=== PATIENT | female | born 1955 | race Caucasian/White ===

== ENCOUNTER 2018-02-03 18:08 | Inpatient (IN) | payer MEDICARE, MEDICAID ==
[~2018-02-03] VITALS: Ht 167.6 cm; Wt 70.9 kg
[~2018-02-03 18:08] MED LIST: ALBU2.5V7 NEB; ALBU6.7H INH; ALPR1TAB7 PO; ASPI-1071 PO; CALC667C5 PO; CINA30TA2 PO; DILT180C66 PO; ESCI10TA54 PO; FOLI0.4T2 PO; FOLI1CAP8 PO; HYDR-4069 PO; LABE100T PO; LEVO75TA7 PO; ROSU10TA PO; TICA90TA PO; VALS40TA10 PO
[2018-02-03] MEDS ORDERED: methylPREDNISolone sod succ 125mg/2ml vial IV ONE (18:20)
[2018-02-03] MEDS ORDERED: ipratropium/albuterol 3ml nebule NEB ONE (18:20)
[2018-02-03 18:51] LABS: BASOPHILS % (AUTO) 0.8 % (0-1); EOSINOPHILS # (AUTO) 0.1 X10'3 (0-0.9); EOSINOPHILS % (AUTO) 2.3 % (0-6); HEMATOCRIT 32.6 % (35.0-45.0); HEMOGLOBIN 10.9 g/dl (12.0-16.0); MEAN CORPUSCULAR HEMOGLOBIN 34.5 PG (27.0-31.0); MEAN CORPUSCULAR HGB CONC 33.3 % (33.0-36.5); MEAN CORPUSCULAR VOLUME 103.4 FL (78-98); MEAN PLATELET VOLUME 9.1 FL (7.4-10.4); MONOCYTES # (AUTO) 0.8 X10'3 (0-0.9); NEUTROPHILS # (AUTO) 3.8 X10'3 (1.8-7.7); NEUTROPHILS % (AUTO) 64.9 % (42-75); PLATELET COUNT 132 X10'3 (140-440); RED BLOOD COUNT 3.15 X10'6 (4.20-5.60); WHITE BLOOD COUNT 5.8 X10'3 (4.5-11.0)
[2018-02-03 19:04] LABS: INR 1.1 INR; PARTIAL THROMBOPLASTIN TIME 33 SECONDS (22-32); PROTHROMBIN TIME 10.9 SECONDS (9.0-12.0)
[2018-02-03 19:07] LABS: ALANINE AMINOTRANSFERASE 21 U/L (12-78); ALBUMIN 3.6 G/DL (3.4-5.0); ALBUMIN/GLOBULIN RATIO 0.9 (1.1-1.5); ALKALINE PHOSPHATASE 65 IU/L (46-116); ANION GAP 12 (8-16); ASPARTATE AMINO TRANSFERASE 28 U/L (10-37); BILIRUBIN,TOTAL 0.6 MG/DL (0.1-1.0); BLOOD UREA NITROGEN 17 MG/DL (7-18); BUN/CREATININE RATIO 3.6 (6.6-38.0); CHLORIDE 93 MMOL/L (99-107); CREATININE 4.74 MG/DL (0.40-0.90); GLUCOSE 94 MG/DL (70-104); POTASSIUM 3.8 MMOL/L (3.5-5.1); SODIUM 136 MMOL/L (135-145); TOTAL PROTEIN 7.6 G/DL (6.4-8.2); eGFR 9 ML/MIN
[2018-02-03] MEDS ORDERED: LEVO250T2 PO (19:09)
[2018-02-03] MEDS ORDERED: temazepam 15mg capsule PO PRN (21:00)
[2018-02-03] MEDS ORDERED: normal saline 1000ml 1,000 ML IV SCH (22:06)
[2018-02-03] MEDS ORDERED: HYDROcodone/acetaminophen 10/325mg tab PO PRN (22:10)
[2018-02-03] MEDS ORDERED: HYDROcodone/acetaminophen 5mg/325mg tablet PO PRN (22:10)
[2018-02-03] MEDS ORDERED: acetaminophen 325mg tablet PO PRN (22:10)
[2018-02-03] MEDS ORDERED: bisacodyl 10mg suppository rectal RC PRN (22:10)
[2018-02-03] MEDS ORDERED: ondansetron/PF 4mg/2ml inj IV PRN (22:10)
[2018-02-03] MEDS ORDERED: metoclopramide 5 mg/ml inj IV PRN (22:10)
[2018-02-03] MEDS ORDERED: diphenhydrAMINE 50 mg/ml inj IV PRN (22:10)
[2018-02-03] MEDS ORDERED: mag hydrox/Alum hydrox/simeth 30ml oral suspension PO PRN (22:10)
[2018-02-03] MEDS ORDERED: diphenhydrAMINE 25mg capsule PO PRN (22:10)
[2018-02-03] MEDS ORDERED: morphine 4 MG/ML inj SYRINge IV PRN ×2 (22:10)
[2018-02-03] MEDS ORDERED: magnesium hydroxide 30ml (MOM) UD suspension PO PRN (22:10)
[2018-02-03] MEDS ORDERED: HYDROmorphone inj. 0.5 MG/0.5 ML DISP.SYRIN IV PRN ×2 (22:10)
[2018-02-03] MEDS ORDERED: acetaminophen 650mg rectal suppository RC PRN (22:10)
[2018-02-03 22:28] LABS: D-DIMER 0.63 MG/L FEU (0-0.50)
[2018-02-03 22:31] LABS: MAGNESIUM 1.9 MG/DL (1.5-2.4); PHOSPHORUS 3.8 MG/DL (2.3-4.5)
[2018-02-03 23:15] VITALS: BP 178/69
[2018-02-03] MEDS: nicotine 21mg patch - 24 hr TD SCH (23:58)
[2018-02-04] VITALS (7 sets, daily range): BP systolic 154–188; BP diastolic 63–81
[2018-02-04] MEDS ORDERED: ipratropium/albuterol 3ml nebule NEB PRN (00:15)
[2018-02-04] MEDS ORDERED: ALPRAZolam 0.5mg tablet PO PRN ×2 (00:31→21:00)
[2018-02-04] MEDS: hydrALAZINE 20mg/ml inj. IV SCH ×4 (02:23→20:43)
[2018-02-04] MEDS: docusate sod 100mg capsule PO SCH ×2 (08:00→20:00)
[2018-02-04] MEDS ORDERED: heparin, porcine 5000 units/ml vial SQ SCH (08:00)
[2018-02-04 08:19] LABS: BASOPHILS % (AUTO) 0.3 % (0-1); EOSINOPHILS % (AUTO) 0.7 % (0-6); HEMOGLOBIN 10.5 g/dl (12.0-16.0); LYMPHOCYTES # (AUTO) 0.5 X10'3 (1.1-4.8); LYMPHOCYTES % (AUTO) 13.3 % (21-51); MEAN CORPUSCULAR HEMOGLOBIN 34.4 PG (27.0-31.0); MEAN CORPUSCULAR HGB CONC 33.7 % (33.0-36.5); MEAN CORPUSCULAR VOLUME 101.9 FL (78-98); MEAN PLATELET VOLUME 9.7 FL (7.4-10.4); MONOCYTES # (AUTO) 0.1 X10'3 (0-0.9); MONOCYTES % (AUTO) 2.6 % (2-12); NEUTROPHILS # (AUTO) 3.4 X10'3 (1.8-7.7); NEUTROPHILS % (AUTO) 83.1 % (42-75); PLATELET COUNT 132 X10'3 (140-440); RED BLOOD COUNT 3.04 X10'6 (4.20-5.60); WHITE BLOOD COUNT 4.1 X10'3 (4.5-11.0)
[2018-02-04] MEDS: nicotine 21mg patch - 24 hr TD SCH (08:59)
[2018-02-04] MEDS: methylPREDNISolone sod succ 125mg/2ml vial IV SCH ×2 (09:00→20:12)
[2018-02-04] MEDS: lactobacillus rhamnosus 10,000 MMU CELLS/CAPSULE PO SCH ×2 (09:01→20:13)
[2018-02-04] MEDS: pantoprazole 40mg Tablet.DR PO SCH (09:02)
[2018-02-04 09:19] LABS: ALANINE AMINOTRANSFERASE 19 U/L (12-78); ALBUMIN 3.4 G/DL (3.4-5.0); ALBUMIN/GLOBULIN RATIO 0.9 (1.1-1.5); ALKALINE PHOSPHATASE 61 IU/L (46-116); ANION GAP 11 (8-16); ASPARTATE AMINO TRANSFERASE 23 U/L (10-37); BILIRUBIN,TOTAL 0.5 MG/DL (0.1-1.0); BLOOD UREA NITROGEN 32 MG/DL (7-18); BUN/CREATININE RATIO 5.4 (6.6-38.0); CALCIUM 9.4 MG/DL (8.5-10.1); CHLORIDE 93 MMOL/L (99-107); CREATININE 5.94 MG/DL (0.40-0.90); GLUCOSE 137 MG/DL (70-104); POTASSIUM 4.2 MMOL/L (3.5-5.1); SODIUM 134 MMOL/L (135-145); TOTAL CARBON DIOXIDE 29.6 MMOL/L (24-32); TOTAL PROTEIN 7.3 G/DL (6.4-8.2); eGFR 7 ML/MIN
[2018-02-04] MEDS ORDERED: levoFLOXACIN-Levaquin 500mg/D5 100 ML IV ONE (11:00)
[2018-02-04] MEDS: levoTHYROXINE 75mcg tablet PO SCH (11:05)
[2018-02-04] MEDS: folic acid 0.4mg tablet PO SCH (11:05)
[2018-02-04] MEDS: cinacalcet 30mg tablet PO SCH (11:05)
[2018-02-04] MEDS: citalopram 20mg tablet PO SCH (11:06)
[2018-02-04] MEDS: aspirin 81mg tablet.DR PO SCH (11:08)
[2018-02-04] MEDS ORDERED: non-formulary drug (Albuterol Sulfate (Proventil Hfa) 2 PUFFS) INH SCH (12:00)
[2018-02-04] MEDS: calcium acetate 667mg (PhosLO) capsule PO SCH ×2 (12:25→18:17)
[2018-02-04] MEDS: diltiazem CD 180mg cap (once-daily) PO SCH (13:50)
[2018-02-04] MEDS: hydrALAZINE 25 MG tablet PO SCH ×2 (15:20→23:00)
[2018-02-04] MEDS ORDERED: labetalol 5mg/ml 20ml inj. IV ONE (18:30)
[2018-02-04] MEDS: atorvastatin 20mg tablet PO SCH (20:13)
[2018-02-04] MEDS: labetalol 100mg tablet PO SCH (20:13)
[2018-02-04] MEDS: albuterol 2.5 MG/3 ML nebule NEB PRN (20:19)
[2018-02-05] VITALS (10 sets, daily range): BP systolic 137–214; BP diastolic 52–81
[2018-02-05] MEDS ORDERED: nitroGLYCERIN 1gm ointment UD TP ONE (00:15)
[2018-02-05] MEDS ORDERED: hydrALAZINE 20mg/ml inj. IV ONE (00:15)
[2018-02-05] MEDS: hydrALAZINE 20mg/ml inj. IV SCH ×4 (01:13→20:00)
[2018-02-05 05:50] LABS: BASOPHILS % (AUTO) 0 % (0-1); EOSINOPHILS % (AUTO) 0 % (0-6); HEMATOCRIT 29.1 % (35.0-45.0); HEMOGLOBIN 9.8 g/dl (12.0-16.0); LYMPHOCYTES # (AUTO) 0.8 X10'3 (1.1-4.8); LYMPHOCYTES % (AUTO) 9.4 % (21-51); MEAN CORPUSCULAR HEMOGLOBIN 34.7 PG (27.0-31.0); MEAN CORPUSCULAR HGB CONC 33.6 % (33.0-36.5); MEAN CORPUSCULAR VOLUME 103.3 FL (78-98); MEAN PLATELET VOLUME 9.8 FL (7.4-10.4); MONOCYTES # (AUTO) 0.2 X10'3 (0-0.9); MONOCYTES % (AUTO) 2.5 % (2-12); NEUTROPHILS # (AUTO) 7.6 X10'3 (1.8-7.7); NEUTROPHILS % (AUTO) 88.1 % (42-75); PLATELET COUNT 144 X10'3 (140-440); RED BLOOD COUNT 2.82 X10'6 (4.20-5.60); RED CELL DISTRIBUTION WIDTH 15.1 % (11.5-14.5); WHITE BLOOD COUNT 8.6 X10'3 (4.5-11.0)
[2018-02-05 06:11] LABS: ALANINE AMINOTRANSFERASE 17 U/L (12-78); ALBUMIN 3.3 G/DL (3.4-5.0); ALBUMIN/GLOBULIN RATIO 0.9 (1.1-1.5); ALKALINE PHOSPHATASE 62 IU/L (46-116); ANION GAP 12 (8-16); ASPARTATE AMINO TRANSFERASE 22 U/L (10-37); BILIRUBIN,TOTAL 0.4 MG/DL (0.1-1.0); BLOOD UREA NITROGEN 59 MG/DL (7-18); CALCIUM 10.2 MG/DL (8.5-10.1); CHLORIDE 94 MMOL/L (99-107); CREATININE 8.41 MG/DL (0.40-0.90); GLUCOSE 143 MG/DL (70-104); POTASSIUM 4.9 MMOL/L (3.5-5.1); SODIUM 131 MMOL/L (135-145); TOTAL CARBON DIOXIDE 25.3 MMOL/L (24-32); TOTAL PROTEIN 6.8 G/DL (6.4-8.2); eGFR 5 ML/MIN
[2018-02-05] MEDS: lactobacillus rhamnosus 10,000 MMU CELLS/CAPSULE PO SCH ×2 (07:43→20:12)
[2018-02-05] MEDS: methylPREDNISolone sod succ 125mg/2ml vial IV SCH ×2 (07:44→20:13)
[2018-02-05] MEDS: folic acid 0.4mg tablet PO SCH (07:44)
[2018-02-05] MEDS: citalopram 20mg tablet PO SCH (07:44)
[2018-02-05] MEDS: levoTHYROXINE 75mcg tablet PO SCH (07:44)
[2018-02-05] MEDS: folic acid/vitamin B complex w/vitamin C 0.8mg tablet PO SCH (07:44)
[2018-02-05] MEDS: calcium acetate 667mg (PhosLO) capsule PO SCH ×3 (07:44→15:30)
[2018-02-05] MEDS: hydrALAZINE 25 MG tablet PO SCH ×3 (07:45→23:57)
[2018-02-05] MEDS: cinacalcet 30mg tablet PO SCH (07:45)
[2018-02-05] MEDS: aspirin 81mg tablet.DR PO SCH (07:45)
[2018-02-05] MEDS: labetalol 100mg tablet PO SCH ×2 (07:45→20:13)
[2018-02-05] MEDS: pantoprazole 40mg Tablet.DR PO SCH (07:45)
[2018-02-05] MEDS: diltiazem CD 180mg cap (once-daily) PO SCH (07:45)
[2018-02-05] MEDS: nicotine 21mg patch - 24 hr TD SCH (07:46)
[2018-02-05] MEDS: docusate sod 100mg capsule PO SCH ×2 (07:56→20:11)
[2018-02-05] MEDS ORDERED: albumin (human) 25% 100ml IV 100 ML IV PRN (08:00)
[2018-02-05] MEDS ORDERED: LIDOcaine 1% (10mg/ml) 2ml vial SQ ONE (08:00)
[2018-02-05] MEDS ORDERED: heparin 1,000unit/ml 10ml vial 10 ML IV ONE (08:00)
[2018-02-05] MEDS ORDERED: epoetin 20,000 units/ml inj IV ONE (08:00)
[2018-02-05] MEDS ORDERED: heparin 1,000 units/ml 10ml inj IV ONE (08:00)
[2018-02-05] MEDS ORDERED: ALPRAZolam 0.5mg tablet PO SCH (08:00)
[2018-02-05] MEDS: atorvastatin 20mg tablet PO SCH (20:12)
[2018-02-05] MEDS: ALPRAZolam 0.5mg tablet PO PRN (20:16)
[2018-02-05] MEDS: albuterol 2.5 MG/3 ML nebule NEB PRN (21:15)
[2018-02-06] VITALS (8 sets, daily range): BP systolic 97–200; BP diastolic 56–76
[2018-02-06] MEDS: hydrALAZINE 20mg/ml inj. IV SCH ×4 (02:28→20:44)
[2018-02-06 05:18] LABS: BASOPHILS % (AUTO) 0 % (0-1); EOSINOPHILS % (AUTO) 0 % (0-6); HEMATOCRIT 31.5 % (35.0-45.0); HEMOGLOBIN 10.6 g/dl (12.0-16.0); LYMPHOCYTES # (AUTO) 0.9 X10'3 (1.1-4.8); LYMPHOCYTES % (AUTO) 5.6 % (21-51); MEAN CORPUSCULAR HEMOGLOBIN 34.7 PG (27.0-31.0); MEAN CORPUSCULAR HGB CONC 33.7 % (33.0-36.5); MEAN CORPUSCULAR VOLUME 102.8 FL (78-98); MEAN PLATELET VOLUME 9.8 FL (7.4-10.4); MONOCYTES # (AUTO) 0.3 X10'3 (0-0.9); MONOCYTES % (AUTO) 1.8 % (2-12); NEUTROPHILS # (AUTO) 15.3 X10'3 (1.8-7.7); NEUTROPHILS % (AUTO) 92.6 % (42-75); PLATELET COUNT 187 X10'3 (140-440); RED BLOOD COUNT 3.07 X10'6 (4.20-5.60); RED CELL DISTRIBUTION WIDTH 15.4 % (11.5-14.5); WHITE BLOOD COUNT 16.5 X10'3 (4.5-11.0)
[2018-02-06 05:43] LABS: ALANINE AMINOTRANSFERASE 17 U/L (12-78); ALBUMIN 3.1 G/DL (3.4-5.0); ALBUMIN/GLOBULIN RATIO 0.8 (1.1-1.5); ALKALINE PHOSPHATASE 64 IU/L (46-116); ANION GAP 7 (8-16); ASPARTATE AMINO TRANSFERASE 14 U/L (10-37); BILIRUBIN,TOTAL 0.4 MG/DL (0.1-1.0); BLOOD UREA NITROGEN 44 MG/DL (7-18); BUN/CREATININE RATIO 7.8 (6.6-38.0); CALCIUM 10.1 MG/DL (8.5-10.1); CHLORIDE 97 MMOL/L (99-107); CREATININE 5.65 MG/DL (0.40-0.90); GLUCOSE 165 MG/DL (70-104); POTASSIUM 4.5 MMOL/L (3.5-5.1); SODIUM 133 MMOL/L (135-145); TOTAL CARBON DIOXIDE 29.1 MMOL/L (24-32); TOTAL PROTEIN 6.9 G/DL (6.4-8.2); eGFR 8 ML/MIN
[2018-02-06] MEDS: methylPREDNISolone sod succ 125mg/2ml vial IV SCH (07:31)
[2018-02-06] MEDS: levoTHYROXINE 75mcg tablet PO SCH (07:32)
[2018-02-06] MEDS: lactobacillus rhamnosus 10,000 MMU CELLS/CAPSULE PO SCH ×2 (07:32→20:44)
[2018-02-06] MEDS: folic acid 0.4mg tablet PO SCH (07:32)
[2018-02-06] MEDS: hydrALAZINE 25 MG tablet PO SCH ×2 (07:32→15:23)
[2018-02-06] MEDS: folic acid/vitamin B complex w/vitamin C 0.8mg tablet PO SCH (07:32)
[2018-02-06] MEDS: calcium acetate 667mg (PhosLO) capsule PO SCH ×3 (07:32→17:41)
[2018-02-06] MEDS: pantoprazole 40mg Tablet.DR PO SCH (07:32)
[2018-02-06] MEDS: docusate sod 100mg capsule PO SCH ×2 (07:32→20:44)
[2018-02-06] MEDS: citalopram 20mg tablet PO SCH (07:32)
[2018-02-06] MEDS: aspirin 81mg tablet.DR PO SCH (07:32)
[2018-02-06] MEDS: labetalol 100mg tablet PO SCH ×2 (07:32→20:44)
[2018-02-06] MEDS: nicotine 21mg patch - 24 hr TD SCH (07:33)
[2018-02-06] MEDS: cinacalcet 30mg tablet PO SCH (07:33)
[2018-02-06] MEDS: diltiazem CD 180mg cap (once-daily) PO SCH (07:33)
[2018-02-06] MEDS: polyethylene glycol 3350 17gm powd pack PO SCH (08:00)
[2018-02-06] MEDS: guaiFENesin ER 600mg tablet PO SCH ×2 (08:55→20:44)
[2018-02-06] MEDS: ipratropium/albuterol 3ml nebule NEB SCH ×3 (10:50→19:33)
[2018-02-06] MEDS ORDERED: levoFLOXACIN 250mg tablet PO SCH (11:00)
[2018-02-06] MEDS: prednisone 10mg tablet PO SCH (12:19)
[2018-02-06] MEDS: atorvastatin 20mg tablet PO SCH (20:44)
[2018-02-06] MEDS: ALPRAZolam 0.5mg tablet PO PRN (21:18)
[2018-02-07] MEDS: hydrALAZINE 20mg/ml inj. IV SCH ×2 (00:12→08:00)
[2018-02-07 03:00] VITALS: BP 172/81
[2018-02-07 05:16] LABS: BASOPHILS % (AUTO) 0.2 % (0-1); EOSINOPHILS % (AUTO) 0 % (0-6); HEMATOCRIT 32.2 % (35.0-45.0); HEMOGLOBIN 10.7 g/dl (12.0-16.0); LYMPHOCYTES # (AUTO) 1.1 X10'3 (1.1-4.8); MEAN CORPUSCULAR HEMOGLOBIN 34.4 PG (27.0-31.0); MEAN CORPUSCULAR HGB CONC 33.2 % (33.0-36.5); MEAN CORPUSCULAR VOLUME 103.6 FL (78-98); MEAN PLATELET VOLUME 9.7 FL (7.4-10.4); MONOCYTES # (AUTO) 0.8 X10'3 (0-0.9); MONOCYTES % (AUTO) 5.5 % (2-12); NEUTROPHILS # (AUTO) 11.8 X10'3 (1.8-7.7); NEUTROPHILS % (AUTO) 86.3 % (42-75); PLATELET COUNT 178 X10'3 (140-440); RED CELL DISTRIBUTION WIDTH 15.1 % (11.5-14.5); WHITE BLOOD COUNT 13.7 X10'3 (4.5-11.0)
[2018-02-07 05:54] LABS: ALANINE AMINOTRANSFERASE 14 U/L (12-78); ALBUMIN/GLOBULIN RATIO 0.9 (1.1-1.5); ALKALINE PHOSPHATASE 69 IU/L (46-116); ANION GAP 8 (8-16); ASPARTATE AMINO TRANSFERASE 14 U/L (10-37); BILIRUBIN,TOTAL 0.6 MG/DL (0.1-1.0); BLOOD UREA NITROGEN 79 MG/DL (7-18); BUN/CREATININE RATIO 9.9 (6.6-38.0); CALCIUM 11.2 MG/DL (8.5-10.1); CHLORIDE 96 MMOL/L (99-107); CREATININE 8.01 MG/DL (0.40-0.90); GLUCOSE 149 MG/DL (70-104); POTASSIUM 4.7 MMOL/L (3.5-5.1); SODIUM 131 MMOL/L (135-145); TOTAL CARBON DIOXIDE 27.1 MMOL/L (24-32); TOTAL PROTEIN 6.4 G/DL (6.4-8.2); eGFR 5 ML/MIN
[2018-02-07 07:00] VITALS: BP 178/64
[2018-02-07] MEDS: levoTHYROXINE 75mcg tablet PO SCH (07:16)
[2018-02-07] MEDS: docusate sod 100mg capsule PO SCH (07:49)
[2018-02-07] MEDS: polyethylene glycol 3350 17gm powd pack PO SCH (07:49)
[2018-02-07] MEDS: lactobacillus rhamnosus 10,000 MMU CELLS/CAPSULE PO SCH (07:49)
[2018-02-07] MEDS: hydrALAZINE 25 MG tablet PO SCH ×2 (07:49)
[2018-02-07] MEDS: calcium acetate 667mg (PhosLO) capsule PO SCH (07:49)
[2018-02-07] MEDS: citalopram 20mg tablet PO SCH (07:49)
[2018-02-07] MEDS: nicotine 21mg patch - 24 hr TD SCH (07:49)
[2018-02-07] MEDS: guaiFENesin ER 600mg tablet PO SCH (07:50)
[2018-02-07] MEDS: folic acid 0.4mg tablet PO SCH (07:50)
[2018-02-07] MEDS: prednisone 10mg tablet PO SCH (07:50)
[2018-02-07] MEDS: aspirin 81mg tablet.DR PO SCH (07:50)
[2018-02-07] MEDS: pantoprazole 40mg Tablet.DR PO SCH (07:50)
[2018-02-07] MEDS: folic acid/vitamin B complex w/vitamin C 0.8mg tablet PO SCH (07:50)
[2018-02-07] MEDS: cinacalcet 30mg tablet PO SCH (07:50)
[2018-02-07] MEDS: labetalol 100mg tablet PO SCH (07:50)
[2018-02-07] MEDS: diltiazem CD 180mg cap (once-daily) PO SCH (07:50)
[2018-02-07] MEDS: ALPRAZolam 0.5mg tablet PO PRN (07:57)
[2018-02-07] MEDS: ipratropium/albuterol 3ml nebule NEB SCH ×2 (08:29→11:00)
[2018-02-07 11:00] VITALS: BP 188/78
== END 2018-02-07 12:20 | disposition home or self-care (01) | DRG 291 ==
LOC: ER 18:09 → ED HOLD 22:11 → PCU 3S 23:15
PROVIDERS: ADMIT Family Medicine; ATTEND Internal Medicine Critical Care Medicine
PROC: 5A1D70Z Performance of Urinary Filtration, Intermittent, Less than 6 Hours Per Day (ICD-10-PCS; principal; 2018-02-05)
DX: I13.2 Hypertensive heart and chronic kidney disease with heart failure and with stage 5 chronic kidney disease, or end stage renal disease (principal); N18.6 End stage renal disease; I50.33 Acute on chronic diastolic (congestive) heart failure; J96.01 Acute respiratory failure with hypoxia; J44.1 Chronic obstructive pulmonary disease with (acute) exacerbation; D69.6 Thrombocytopenia, unspecified; E78.00 Pure hypercholesterolemia, unspecified; D53.9 Nutritional anemia, unspecified; R91.1 Solitary pulmonary nodule; F17.210 Nicotine dependence, cigarettes, uncomplicated; Z99.2 Dependence on renal dialysis; Z99.81 Dependence on supplemental oxygen; Z79.899 Other long term (current) drug therapy; Z79.82 Long term (current) use of aspirin; Z82.49 Family history of ischemic heart disease and other diseases of the circulatory system; Z82.3 Family history of stroke; Z80.9 Family history of malignant neoplasm, unspecified; Z83.3 Family history of diabetes mellitus; Z82.5 Family history of asthma and other chronic lower respiratory diseases; Z82.41 Family history of sudden cardiac death; Z71.6 Tobacco abuse counseling
CPT/HCPCS: 36415; 71045; 71250; 80053; 83735; 83880; 84100; 84443; 84484; 85025; 85379; 85610; 85730; 87070; 93005; 94640; 94667; 94668; 94760; A6258; A6402; G0257; J0360; J0885; J1644; J1956; J2930; J3490; J7030; J7512

== ENCOUNTER 2018-02-16 17:57 | Inpatient (IN) | payer MEDICARE, MEDICAID ==
[~2018-02-16] VITALS: Ht 170.2 cm; Wt 71.6 kg
[~2018-02-16 17:57] MED LIST changes: -LABE100T PO; +LABE100T5 PO; +LEVO250T2 PO; -TICA90TA PO; -VALS40TA10 PO
[2018-02-16] MEDS ORDERED: normal saline 1000ML IV soln IVB ONE (18:20)
[2018-02-16 18:43] LABS: BASOPHILS # (AUTO) 0.1 X10'3 (0-0.2); BASOPHILS % (AUTO) 0.5 % (0-1); EOSINOPHILS # (AUTO) 0.4 X10'3 (0-0.9); EOSINOPHILS % (AUTO) 3.7 % (0-6); HEMATOCRIT 27.4 % (35.0-45.0); HEMOGLOBIN 9.3 g/dl (12.0-16.0); LYMPHOCYTES # (AUTO) 0.8 X10'3 (1.1-4.8); MEAN CORPUSCULAR HEMOGLOBIN 35.3 PG (27.0-31.0); MEAN CORPUSCULAR HGB CONC 33.8 % (33.0-36.5); MEAN CORPUSCULAR VOLUME 104.4 FL (78-98); MONOCYTES # (AUTO) 0.7 X10'3 (0-0.9); MONOCYTES % (AUTO) 5.8 % (2-12); NEUTROPHILS # (AUTO) 9.9 X10'3 (1.8-7.7); PLATELET COUNT 184 X10'3 (140-440); RED BLOOD COUNT 2.62 X10'6 (4.20-5.60); RED CELL DISTRIBUTION WIDTH 15.5 % (11.5-14.5); WHITE BLOOD COUNT 11.9 X10'3 (4.5-11.0)
[2018-02-16 18:58] LABS: ALANINE AMINOTRANSFERASE 18 U/L (12-78); ALBUMIN 2.4 G/DL (3.4-5.0); ALBUMIN/GLOBULIN RATIO 0.5 (1.1-1.5); ALKALINE PHOSPHATASE 84 IU/L (46-116); ANION GAP 10 (8-16); ASPARTATE AMINO TRANSFERASE 21 U/L (10-37); BILIRUBIN,TOTAL 0.7 MG/DL (0.1-1.0); BLOOD UREA NITROGEN 39 MG/DL (7-18); BUN/CREATININE RATIO 5.8 (6.6-38.0); CALCIUM 10.7 MG/DL (8.5-10.1); CHLORIDE 90 MMOL/L (99-107); GLUCOSE 90 MG/DL (70-104); POTASSIUM 3.3 MMOL/L (3.5-5.1); SODIUM 133 MMOL/L (135-145); TOTAL CARBON DIOXIDE 33.1 MMOL/L (24-32); TOTAL PROTEIN 7.3 G/DL (6.4-8.2); eGFR 6 ML/MIN
[2018-02-16 19:07] LABS: LIPASE 80 U/L (73-393)
[2018-02-16 19:14] LABS: CLARITY,URINE CLEAR (Clear); COLOR,URINE YELLOW (Yellow); GLUCOSE, URINE 250 mg/dl (Neg); KETONES,URINE NEGATIVE (Neg); LEUKOCYTE ESTERASE ,URINE NEGATIVE (Neg); NITRITES, URINE NEGATIVE (Neg); OCCULT BLOOD,URINE NEGATIVE (Neg); PH,URINE 8.5 (4.8-8.0); PROTEIN,URINE >=300 mg/dl (Neg); UROBILINOGEN,URINE 0.2 E.U/dL (0.2-1.0)
[2018-02-16 19:24] LABS: UA COLLECTION TYPE STRAIGHT CATH
[2018-02-16 19:26] LABS: BACTERIA,URINE 1+ /HPF (Neg); RBC,URINE 0-2 /HPF (0-2); SQUAMOUS EPITHELIAL CELL,UR FEW /LPF (FEW)
[2018-02-16] MEDS ORDERED: piperacillin-tazo 2.25gm/50ml 50 ML IV STA (19:50)
[2018-02-16] MEDS ORDERED: vancomycin/NS 1 GM ADD-VANTAGE 250 ML IV ONE (19:50)
[2018-02-16] MEDS ORDERED: ROSU10TA PO (20:06)
[2018-02-16] MEDS ORDERED: FOLI1CAP8 (20:06)
[2018-02-16] MEDS ORDERED: FOLI1TAB16 PO (20:06)
[2018-02-16] MEDS ORDERED: HYDR-4069 PO (20:06)
[2018-02-16] MEDS ORDERED: acetaminophen 650mg rectal suppository RC PRN (20:50)
[2018-02-16] MEDS ORDERED: ipratropium/albuterol 3ml nebule NEB PRN (20:50)
[2018-02-16] MEDS ORDERED: ondansetron/PF 4mg/2ml inj IV PRN (20:50)
[2018-02-16 21:30] VITALS: BP 141/65
[2018-02-16] MEDS ORDERED: vancomycin/NS 1 GM ADD-VANTAGE 250 ML IV PRN (21:45)
[2018-02-16 22:00] VITALS: BP 115/49
[2018-02-16] MEDS: methylPREDNISolone sod succ/PF 40mg inj. IV SCH (22:23)
[2018-02-16] MEDS: ipratropium/albuterol 3ml nebule NEB SCH (23:50)
[2018-02-16] MEDS: piperacillin-tazo 2.25gm/50ml 50 ML IV SCH (23:55)
[2018-02-16] MEDS: hydrALAZINE 25 MG tablet PO SCH (23:55)
[2018-02-17] MEDS: VANCOMYCIN LEVEL IV SCH (00:13)
[2018-02-17 02:00] VITALS: BP 146/61
[2018-02-17 04:50] LABS: BASOPHILS % (AUTO) 0 % (0-1); EOSINOPHILS # (AUTO) 0.2 X10'3 (0-0.9); EOSINOPHILS % (AUTO) 2.4 % (0-6); HEMATOCRIT 25.9 % (35.0-45.0); HEMOGLOBIN 8.4 g/dl (12.0-16.0); LYMPHOCYTES # (AUTO) 0.3 X10'3 (1.1-4.8); LYMPHOCYTES % (AUTO) 2.8 % (21-51); MEAN CORPUSCULAR HEMOGLOBIN 33.9 PG (27.0-31.0); MEAN CORPUSCULAR HGB CONC 32.6 % (33.0-36.5); MEAN CORPUSCULAR VOLUME 104.1 FL (78-98); MEAN PLATELET VOLUME 9.4 FL (7.4-10.4); MONOCYTES # (AUTO) 0.2 X10'3 (0-0.9); MONOCYTES % (AUTO) 1.9 % (2-12); NEUTROPHILS # (AUTO) 9.4 X10'3 (1.8-7.7); NEUTROPHILS % (AUTO) 92.9 % (42-75); PLATELET COUNT 156 X10'3 (140-440); RED BLOOD COUNT 2.48 X10'6 (4.20-5.60); RED CELL DISTRIBUTION WIDTH 15.4 % (11.5-14.5); WHITE BLOOD COUNT 10.2 X10'3 (4.5-11.0)
[2018-02-17 04:57] LABS: PARTIAL THROMBOPLASTIN TIME 37 SECONDS (22-32); PROTHROMBIN TIME 10.7 SECONDS (9.0-12.0)
[2018-02-17 05:06] LABS: ALANINE AMINOTRANSFERASE 13 U/L (12-78); ALBUMIN 2.1 G/DL (3.4-5.0); ALBUMIN/GLOBULIN RATIO 0.5 (1.1-1.5); ALKALINE PHOSPHATASE 71 IU/L (46-116); ANION GAP 12 (8-16); ASPARTATE AMINO TRANSFERASE 14 U/L (10-37); BILIRUBIN,TOTAL 0.6 MG/DL (0.1-1.0); BLOOD UREA NITROGEN 44 MG/DL (7-18); BUN/CREATININE RATIO 6.1 (6.6-38.0); CALCIUM 10.3 MG/DL (8.5-10.1); CHLORIDE 94 MMOL/L (99-107); CREATININE 7.25 MG/DL (0.40-0.90); GLUCOSE 127 MG/DL (70-104); MAGNESIUM 1.9 MG/DL (1.5-2.4); PHOSPHORUS 5.4 MG/DL (2.3-4.5); POTASSIUM 4.5 MMOL/L (3.5-5.1); SODIUM 135 MMOL/L (135-145); TOTAL CARBON DIOXIDE 29.3 MMOL/L (24-32); TOTAL PROTEIN 6.5 G/DL (6.4-8.2); VANCOMYCIN,TROUGH 18.4 UG/ML (6.0-14.0); eGFR 6 ML/MIN
[2018-02-17 06:00] VITALS: BP 128/58
[2018-02-17] MEDS: ipratropium/albuterol 3ml nebule NEB SCH ×5 (06:54→23:00)
[2018-02-17] MEDS: piperacillin-tazo 2.25gm/50ml 50 ML IV SCH ×3 (07:54→23:51)
[2018-02-17] MEDS: heparin, porcine 5000 units/ml vial SQ SCH ×2 (07:54→19:40)
[2018-02-17] MEDS: folic acid 1mg tablet PO SCH (07:55)
[2018-02-17] MEDS: methylPREDNISolone sod succ/PF 40mg inj. IV SCH ×2 (07:55→19:40)
[2018-02-17] MEDS: atorvastatin 20mg tablet PO SCH (07:55)
[2018-02-17] MEDS: levoTHYROXINE 75mcg tablet PO SCH (07:56)
[2018-02-17] MEDS: hydrALAZINE 25 MG tablet PO SCH ×3 (07:57→23:50)
[2018-02-17] MEDS: citalopram 20mg tablet PO SCH (07:57)
[2018-02-17] MEDS: ALPRAZolam 0.5mg tablet PO SCH (07:57)
[2018-02-17] MEDS: labetalol 100mg tablet PO SCH ×2 (07:58→19:41)
[2018-02-17] MEDS: cinacalcet 30mg tablet PO SCH (07:58)
[2018-02-17] MEDS: diltiazem CD 180mg cap (once-daily) PO SCH (07:58)
[2018-02-17] MEDS: calcium acetate 667mg (PhosLO) capsule PO SCH ×3 (07:58→17:32)
[2018-02-17] MEDS: docusate sod 100mg capsule PO SCH ×2 (07:59→19:40)
[2018-02-17] MEDS ORDERED: aspirin 325mg tablet, delayed-release (Ecotrin) PO SCH (08:00)
[2018-02-17] MEDS: vitamin B comp w/Vit. C tab 1 TAB TABLET PO SCH (08:00)
[2018-02-17] MEDS ORDERED: folic acid 0.4mg tablet PO SCH (08:00)
[2018-02-17] MEDS ORDERED: LIDOcaine 1% (10mg/ml) 2ml vial SQ ONE (09:45)
[2018-02-17] MEDS ORDERED: heparin 1,000 units/ml 10ml inj IV ONE (09:45)
[2018-02-17 11:00] VITALS: BP 121/78
[2018-02-17 18:00] VITALS: BP 125/72
[2018-02-17] MEDS: lactobacillus rhamnosus 10,000 MMU CELLS/CAPSULE PO SCH (19:41)
[2018-02-17 22:00] VITALS: BP 153/58
[2018-02-18] MEDS: VANCOMYCIN LEVEL IV SCH (01:20)
[2018-02-18 02:00] VITALS: BP 132/60
[2018-02-18 05:18] LABS: BASOPHILS % (AUTO) 0.2 % (0-1); EOSINOPHILS # (AUTO) 0.1 X10'3 (0-0.9); EOSINOPHILS % (AUTO) 1.5 % (0-6); HEMATOCRIT 23.5 % (35.0-45.0); HEMOGLOBIN 8.1 g/dl (12.0-16.0); LYMPHOCYTES # (AUTO) 0.5 X10'3 (1.1-4.8); LYMPHOCYTES % (AUTO) 5.2 % (21-51); MEAN CORPUSCULAR HEMOGLOBIN 35.7 PG (27.0-31.0); MEAN CORPUSCULAR HGB CONC 34.3 % (33.0-36.5); MEAN PLATELET VOLUME 9.8 FL (7.4-10.4); MONOCYTES # (AUTO) 0.3 X10'3 (0-0.9); MONOCYTES % (AUTO) 3.1 % (2-12); NEUTROPHILS # (AUTO) 8.7 X10'3 (1.8-7.7); PLATELET COUNT 206 X10'3 (140-440); RED BLOOD COUNT 2.26 X10'6 (4.20-5.60); RED CELL DISTRIBUTION WIDTH 15.2 % (11.5-14.5); WHITE BLOOD COUNT 9.6 X10'3 (4.5-11.0)
[2018-02-18 05:44] LABS: ANISOCYTOSIS 1+; HYPOCHROMASIA 1+; PLATELET ESTIMATE NORMAL; POLYCHROMASIA 1+
[2018-02-18 06:00] VITALS: BP 148/58
[2018-02-18] MEDS: lactobacillus rhamnosus 10,000 MMU CELLS/CAPSULE PO SCH ×2 (07:54→21:42)
[2018-02-18] MEDS: cinacalcet 30mg tablet PO SCH (07:54)
[2018-02-18] MEDS: hydrALAZINE 25 MG tablet PO SCH ×2 (07:54→16:08)
[2018-02-18] MEDS: docusate sod 100mg capsule PO SCH ×2 (07:54→21:42)
[2018-02-18] MEDS: diltiazem CD 180mg cap (once-daily) PO SCH (07:54)
[2018-02-18] MEDS: vitamin B comp w/Vit. C tab 1 TAB TABLET PO SCH (07:56)
[2018-02-18] MEDS: folic acid 1mg tablet PO SCH (07:56)
[2018-02-18] MEDS: atorvastatin 20mg tablet PO SCH (07:56)
[2018-02-18] MEDS: calcium acetate 667mg (PhosLO) capsule PO SCH ×3 (07:56→17:34)
[2018-02-18] MEDS: aspirin 81mg tablet.DR PO SCH (07:56)
[2018-02-18] MEDS: citalopram 20mg tablet PO SCH (07:56)
[2018-02-18] MEDS: levoTHYROXINE 75mcg tablet PO SCH (07:56)
[2018-02-18] MEDS: ALPRAZolam 0.5mg tablet PO SCH (07:56)
[2018-02-18] MEDS: labetalol 100mg tablet PO SCH ×2 (07:57→21:43)
[2018-02-18] MEDS: heparin, porcine 5000 units/ml vial SQ SCH ×2 (07:59→21:44)
[2018-02-18] MEDS: methylPREDNISolone sod succ/PF 40mg inj. IV SCH ×2 (07:59→21:42)
[2018-02-18] MEDS: ipratropium/albuterol 3ml nebule NEB SCH ×5 (08:05→23:18)
[2018-02-18 08:33] LABS: ALANINE AMINOTRANSFERASE 12 U/L (12-78); ALBUMIN 2.2 G/DL (3.4-5.0); ALBUMIN/GLOBULIN RATIO 0.5 (1.1-1.5); ALKALINE PHOSPHATASE 76 IU/L (46-116); ANION GAP 10 (8-16); ASPARTATE AMINO TRANSFERASE 12 U/L (10-37); BILIRUBIN,TOTAL 0.4 MG/DL (0.1-1.0); BLOOD UREA NITROGEN 52 MG/DL (7-18); BUN/CREATININE RATIO 11.5 (6.6-38.0); CALCIUM 11.3 MG/DL (8.5-10.1); CHLORIDE 97 MMOL/L (99-107); CREATININE 4.53 MG/DL (0.40-0.90); GLUCOSE 177 MG/DL (70-104); PHOSPHORUS 3.7 MG/DL (2.3-4.5); POTASSIUM 4.4 MMOL/L (3.5-5.1); SODIUM 137 MMOL/L (135-145); TOTAL CARBON DIOXIDE 30.3 MMOL/L (24-32); TOTAL PROTEIN 6.7 G/DL (6.4-8.2); VANCOMYCIN,RANDOM 10.7 UG/ML; eGFR 10 ML/MIN
[2018-02-18] MEDS: piperacillin-tazo 2.25gm/50ml 50 ML IV SCH ×2 (08:51→16:08)
[2018-02-18] MEDS ORDERED: vancomycin/NS 1 GM ADD-VANTAGE 250 ML IV ONE (09:45)
[2018-02-18 11:00] VITALS: BP 138/60
[2018-02-18 15:00] VITALS: BP 150/72
[2018-02-18] MEDS ORDERED: normal saline 1000ml 250 ML IV SCH (16:40)
[2018-02-18 19:00] VITALS: BP 122/65
[2018-02-18 23:00] VITALS: BP 146/86
[2018-02-19] MEDS: hydrALAZINE 25 MG tablet PO SCH ×4 (00:26→23:41)
[2018-02-19] MEDS: piperacillin-tazo 2.25gm/50ml 50 ML IV SCH ×4 (00:26→23:42)
[2018-02-19 03:00] VITALS: BP 185/72
[2018-02-19] MEDS: VANCOMYCIN LEVEL IV SCH (03:00)
[2018-02-19] MEDS: acetaminophen 325mg tablet PO PRN (03:19)
[2018-02-19] MEDS: hydrALAZINE 20mg/ml inj. IV PRN (04:53)
[2018-02-19 05:10] LABS: BASOPHILS % (AUTO) 0 % (0-1); EOSINOPHILS # (AUTO) 0.3 X10'3 (0-0.9); EOSINOPHILS % (AUTO) 2.1 % (0-6); HEMATOCRIT 23.3 % (35.0-45.0); LYMPHOCYTES # (AUTO) 0.6 X10'3 (1.1-4.8); LYMPHOCYTES % (AUTO) 4.7 % (21-51); MEAN CORPUSCULAR HEMOGLOBIN 35.6 PG (27.0-31.0); MEAN CORPUSCULAR HGB CONC 34.3 % (33.0-36.5); MEAN CORPUSCULAR VOLUME 103.8 FL (78-98); MONOCYTES # (AUTO) 0.4 X10'3 (0-0.9); MONOCYTES % (AUTO) 3.3 % (2-12); NEUTROPHILS # (AUTO) 11.2 X10'3 (1.8-7.7); NEUTROPHILS % (AUTO) 89.9 % (42-75); PLATELET COUNT 191 X10'3 (140-440); RED BLOOD COUNT 2.25 X10'6 (4.20-5.60); RED CELL DISTRIBUTION WIDTH 15.1 % (11.5-14.5); WHITE BLOOD COUNT 12.4 X10'3 (4.5-11.0)
[2018-02-19 05:53] LABS: ALANINE AMINOTRANSFERASE 13 U/L (12-78); ALBUMIN 2.2 G/DL (3.4-5.0); ALBUMIN/GLOBULIN RATIO 0.5 (1.1-1.5); ALKALINE PHOSPHATASE 85 IU/L (46-116); ANION GAP 12 (8-16); ASPARTATE AMINO TRANSFERASE 9 U/L (10-37); BILIRUBIN,TOTAL 0.5 MG/DL (0.1-1.0); BLOOD UREA NITROGEN 87 MG/DL (7-18); BUN/CREATININE RATIO 13.8 (6.6-38.0); CHLORIDE 92 MMOL/L (99-107); CREATININE 6.29 MG/DL (0.40-0.90); GLUCOSE 176 MG/DL (70-104); MAGNESIUM 2.1 MG/DL (1.5-2.4); PHOSPHORUS 4.7 MG/DL (2.3-4.5); SODIUM 136 MMOL/L (135-145); TOTAL CARBON DIOXIDE 31.7 MMOL/L (24-32); TOTAL PROTEIN 6.4 G/DL (6.4-8.2); VANCOMYCIN,RANDOM 24.1 UG/ML; eGFR 7 ML/MIN
[2018-02-19 05:56] LABS: CALCIUM 12.3 MG/DL (8.5-10.1)
[2018-02-19 06:00] VITALS: BP 172/73
[2018-02-19] MEDS: ipratropium/albuterol 3ml nebule NEB SCH ×5 (07:00→23:00)
[2018-02-19] MEDS: levoTHYROXINE 75mcg tablet PO SCH (07:21)
[2018-02-19] MEDS: lactobacillus rhamnosus 10,000 MMU CELLS/CAPSULE PO SCH ×2 (07:21→19:24)
[2018-02-19] MEDS: atorvastatin 20mg tablet PO SCH (07:21)
[2018-02-19] MEDS: cinacalcet 30mg tablet PO SCH (07:21)
[2018-02-19] MEDS: vitamin B comp w/Vit. C tab 1 TAB TABLET PO SCH (07:21)
[2018-02-19] MEDS: calcium acetate 667mg (PhosLO) capsule PO SCH (07:21)
[2018-02-19] MEDS: folic acid 1mg tablet PO SCH (07:21)
[2018-02-19] MEDS: ALPRAZolam 0.5mg tablet PO SCH (07:21)
[2018-02-19] MEDS: labetalol 100mg tablet PO SCH ×2 (07:22→19:24)
[2018-02-19] MEDS: citalopram 20mg tablet PO SCH (07:22)
[2018-02-19] MEDS: docusate sod 100mg capsule PO SCH ×2 (07:22→19:24)
[2018-02-19] MEDS: diltiazem CD 180mg cap (once-daily) PO SCH (07:22)
[2018-02-19] MEDS: aspirin 81mg tablet.DR PO SCH (07:22)
[2018-02-19] MEDS: methylPREDNISolone sod succ/PF 40mg inj. IV SCH ×2 (07:26→19:25)
[2018-02-19] MEDS: heparin, porcine 5000 units/ml vial SQ SCH ×2 (07:27→19:24)
[2018-02-19] MEDS ORDERED: LIDOcaine 1% (10mg/ml) 2ml vial SQ ONE (08:00)
[2018-02-19] MEDS ORDERED: heparin 1,000 units/ml 10ml inj IV ONE (08:00)
[2018-02-19] MEDS ORDERED: epoetin 20,000 units/ml inj IV ONE (08:00)
[2018-02-19 11:00] VITALS: BP 127/68
[2018-02-19 15:00] VITALS: BP 129/55
[2018-02-19 19:00] VITALS: BP 146/66
[2018-02-19 23:00] VITALS: BP 183/63
[2018-02-20 03:00] VITALS: BP 140/55
[2018-02-20] MEDS: VANCOMYCIN LEVEL IV SCH (03:00)
[2018-02-20 05:12] LABS: BASOPHILS % (AUTO) 0.2 % (0-1); EOSINOPHILS # (AUTO) 0.1 X10'3 (0-0.9); EOSINOPHILS % (AUTO) 1.5 % (0-6); HEMATOCRIT 23.9 % (35.0-45.0); HEMOGLOBIN 7.8 g/dl (12.0-16.0); LYMPHOCYTES # (AUTO) 0.8 X10'3 (1.1-4.8); LYMPHOCYTES % (AUTO) 9.4 % (21-51); MEAN CORPUSCULAR HEMOGLOBIN 34.2 PG (27.0-31.0); MEAN CORPUSCULAR HGB CONC 32.5 % (33.0-36.5); MEAN CORPUSCULAR VOLUME 105.5 FL (78-98); MONOCYTES # (AUTO) 0.6 X10'3 (0-0.9); MONOCYTES % (AUTO) 6.8 % (2-12); NEUTROPHILS # (AUTO) 7.1 X10'3 (1.8-7.7); NEUTROPHILS % (AUTO) 82.1 % (42-75); PLATELET COUNT 176 X10'3 (140-440); RED BLOOD COUNT 2.26 X10'6 (4.20-5.60); RED CELL DISTRIBUTION WIDTH 15.3 % (11.5-14.5); WHITE BLOOD COUNT 8.7 X10'3 (4.5-11.0)
[2018-02-20 05:55] LABS: ALANINE AMINOTRANSFERASE 19 U/L (12-78); ALBUMIN 2.2 G/DL (3.4-5.0); ALBUMIN/GLOBULIN RATIO 0.6 (1.1-1.5); ALKALINE PHOSPHATASE 76 IU/L (46-116); ANION GAP 7 (8-16); ASPARTATE AMINO TRANSFERASE 13 U/L (10-37); BILIRUBIN,TOTAL 0.4 MG/DL (0.1-1.0); BLOOD UREA NITROGEN 46 MG/DL (7-18); BUN/CREATININE RATIO 11.6 (6.6-38.0); CALCIUM 10.2 MG/DL (8.5-10.1); CHLORIDE 100 MMOL/L (99-107); CREATININE 3.96 MG/DL (0.40-0.90); GLUCOSE 151 MG/DL (70-104); MAGNESIUM 1.8 MG/DL (1.5-2.4); PHOSPHORUS 4.5 MG/DL (2.3-4.5); POTASSIUM 4.1 MMOL/L (3.5-5.1); SODIUM 140 MMOL/L (135-145); TOTAL CARBON DIOXIDE 32.9 MMOL/L (24-32); VANCOMYCIN,RANDOM 13.4 UG/ML; eGFR 12 ML/MIN
[2018-02-20 06:00] VITALS: BP 182/68
[2018-02-20] MEDS: methylPREDNISolone sod succ/PF 40mg inj. IV SCH ×2 (07:35→20:26)
[2018-02-20] MEDS: labetalol 100mg tablet PO SCH ×2 (07:35→20:26)
[2018-02-20] MEDS: atorvastatin 20mg tablet PO SCH (07:35)
[2018-02-20] MEDS: heparin, porcine 5000 units/ml vial SQ SCH ×2 (07:35→20:26)
[2018-02-20] MEDS: citalopram 20mg tablet PO SCH (07:36)
[2018-02-20] MEDS: lactobacillus rhamnosus 10,000 MMU CELLS/CAPSULE PO SCH ×2 (07:36→20:27)
[2018-02-20] MEDS: hydrALAZINE 25 MG tablet PO SCH ×3 (07:36→23:04)
[2018-02-20] MEDS: ALPRAZolam 0.5mg tablet PO SCH (07:36)
[2018-02-20] MEDS: cinacalcet 30mg tablet PO SCH (07:36)
[2018-02-20] MEDS: diltiazem CD 180mg cap (once-daily) PO SCH (07:36)
[2018-02-20] MEDS: aspirin 81mg tablet.DR PO SCH (07:36)
[2018-02-20] MEDS: folic acid 1mg tablet PO SCH (07:36)
[2018-02-20] MEDS: vitamin B comp w/Vit. C tab 1 TAB TABLET PO SCH (07:36)
[2018-02-20] MEDS: piperacillin-tazo 2.25gm/50ml 50 ML IV SCH ×3 (07:37→23:03)
[2018-02-20] MEDS: levoTHYROXINE 75mcg tablet PO SCH (07:37)
[2018-02-20] MEDS: docusate sod 100mg capsule PO SCH ×2 (07:37→20:26)
[2018-02-20] MEDS: ipratropium/albuterol 3ml nebule NEB SCH ×4 (08:23→19:58)
[2018-02-20] MEDS ORDERED: vancomycin/NS 1 GM ADD-VANTAGE 250 ML IV ONE (09:45)
[2018-02-20 11:00] VITALS: BP 140/47
[2018-02-20 15:00] VITALS: BP 146/67
[2018-02-20] MEDS: pantoprazole 40mg Tablet.DR PO SCH (18:22)
[2018-02-20] MEDS: hydrALAZINE 20mg/ml inj. IV PRN (18:24)
[2018-02-20 19:00] VITALS: BP 196/82
[2018-02-20] MEDS: guaiFENesin ER 600mg tablet PO PRN (20:27)
[2018-02-20 23:00] VITALS: BP 187/55
[2018-02-21] VITALS (7 sets, daily range): BP systolic 157–194; BP diastolic 57–77
[2018-02-21] MEDS: VANCOMYCIN LEVEL IV SCH (03:00)
[2018-02-21 05:19] LABS: BASOPHILS % (AUTO) 0.1 % (0-1); EOSINOPHILS # (AUTO) 0.1 X10'3 (0-0.9); EOSINOPHILS % (AUTO) 1.6 % (0-6); HEMATOCRIT 23.6 % (35.0-45.0); HEMOGLOBIN 7.8 g/dl (12.0-16.0); LYMPHOCYTES # (AUTO) 0.8 X10'3 (1.1-4.8); LYMPHOCYTES % (AUTO) 8.7 % (21-51); MEAN CORPUSCULAR HEMOGLOBIN 34.4 PG (27.0-31.0); MEAN CORPUSCULAR HGB CONC 33.2 % (33.0-36.5); MEAN CORPUSCULAR VOLUME 103.8 FL (78-98); MEAN PLATELET VOLUME 9.3 FL (7.4-10.4); MONOCYTES # (AUTO) 0.2 X10'3 (0-0.9); MONOCYTES % (AUTO) 2.7 % (2-12); NEUTROPHILS # (AUTO) 7.6 X10'3 (1.8-7.7); NEUTROPHILS % (AUTO) 86.9 % (42-75); PLATELET COUNT 176 X10'3 (140-440); RED BLOOD COUNT 2.27 X10'6 (4.20-5.60); RED CELL DISTRIBUTION WIDTH 15.4 % (11.5-14.5); WHITE BLOOD COUNT 8.8 X10'3 (4.5-11.0)
[2018-02-21 05:53] LABS: ALBUMIN 2.3 G/DL (3.4-5.0); ALBUMIN/GLOBULIN RATIO 0.6 (1.1-1.5); ALKALINE PHOSPHATASE 74 IU/L (46-116); ANION GAP 12 (8-16); ASPARTATE AMINO TRANSFERASE 11 U/L (10-37); BILIRUBIN,TOTAL 0.5 MG/DL (0.1-1.0); BLOOD UREA NITROGEN 74 MG/DL (7-18); BUN/CREATININE RATIO 12.2 (6.6-38.0); CALCIUM 10.3 MG/DL (8.5-10.1); CHLORIDE 96 MMOL/L (99-107); CREATININE 6.05 MG/DL (0.40-0.90); GLUCOSE 185 MG/DL (70-104); MAGNESIUM 1.8 MG/DL (1.5-2.4); PHOSPHORUS 6.2 MG/DL (2.3-4.5); POTASSIUM 4.5 MMOL/L (3.5-5.1); SODIUM 136 MMOL/L (135-145); TOTAL CARBON DIOXIDE 27.6 MMOL/L (24-32); VANCOMYCIN,RANDOM 30.9 UG/ML; eGFR 7 ML/MIN
[2018-02-21 06:03] LABS: ALANINE AMINOTRANSFERASE 17 U/L (12-78)
[2018-02-21] MEDS: ipratropium/albuterol 3ml nebule NEB SCH ×5 (06:59→23:00)
[2018-02-21] MEDS: vitamin B comp w/Vit. C tab 1 TAB TABLET PO SCH (07:52)
[2018-02-21] MEDS: pantoprazole 40mg Tablet.DR PO SCH (07:52)
[2018-02-21] MEDS: lactobacillus rhamnosus 10,000 MMU CELLS/CAPSULE PO SCH ×2 (07:52→19:02)
[2018-02-21] MEDS: hydrALAZINE 25 MG tablet PO SCH ×3 (07:52→23:19)
[2018-02-21] MEDS: labetalol 100mg tablet PO SCH ×2 (07:52→19:03)
[2018-02-21] MEDS: citalopram 20mg tablet PO SCH (07:52)
[2018-02-21] MEDS: levoTHYROXINE 75mcg tablet PO SCH (07:52)
[2018-02-21] MEDS: cinacalcet 30mg tablet PO SCH (07:52)
[2018-02-21] MEDS: folic acid 1mg tablet PO SCH (07:53)
[2018-02-21] MEDS: atorvastatin 20mg tablet PO SCH (07:53)
[2018-02-21] MEDS: piperacillin-tazo 2.25gm/50ml 50 ML IV SCH ×3 (07:53→23:19)
[2018-02-21] MEDS: ALPRAZolam 0.5mg tablet PO SCH (07:53)
[2018-02-21] MEDS: aspirin 81mg tablet.DR PO SCH (07:53)
[2018-02-21] MEDS: docusate sod 100mg capsule PO SCH ×2 (07:54→19:03)
[2018-02-21] MEDS: heparin, porcine 5000 units/ml vial SQ SCH ×2 (07:54→19:02)
[2018-02-21] MEDS: methylPREDNISolone sod succ/PF 40mg inj. IV SCH ×2 (07:54→18:59)
[2018-02-21] MEDS: diltiazem CD 180mg cap (once-daily) PO SCH (07:56)
[2018-02-21 11:27] LABS: VITAMIN D, 25-HYDROXY 10.2 ng/mL (30.0-100.0)
[2018-02-21] MEDS: guaiFENesin ER 600mg tablet PO PRN (19:03)
[2018-02-21] MEDS: acetaminophen 325mg tablet PO PRN (22:03)
[2018-02-22] VITALS (8 sets, daily range): BP systolic 111–171; BP diastolic 36–84
[2018-02-22] MEDS: hydrALAZINE 20mg/ml inj. IV PRN (01:12)
[2018-02-22] MEDS: VANCOMYCIN LEVEL IV SCH (03:00)
[2018-02-22] MEDS ORDERED: morphine 2 MG/ML inj. syringe IV PRN (04:10)
[2018-02-22] MEDS: morphine 4 MG/ML inj SYRINge IV PRN ×2 (04:25→23:06)
[2018-02-22 05:56] LABS: VANCOMYCIN,RANDOM 25.4 UG/ML
[2018-02-22] MEDS: ipratropium/albuterol 3ml nebule NEB SCH ×5 (06:46→23:00)
[2018-02-22] MEDS: folic acid 1mg tablet PO SCH (07:24)
[2018-02-22] MEDS: guaiFENesin ER 600mg tablet PO PRN (07:24)
[2018-02-22] MEDS: lactobacillus rhamnosus 10,000 MMU CELLS/CAPSULE PO SCH ×2 (07:24→19:42)
[2018-02-22] MEDS: methylPREDNISolone sod succ/PF 40mg inj. IV SCH ×2 (07:24→19:40)
[2018-02-22] MEDS: citalopram 20mg tablet PO SCH (07:25)
[2018-02-22] MEDS: vitamin B comp w/Vit. C tab 1 TAB TABLET PO SCH (07:25)
[2018-02-22] MEDS: atorvastatin 20mg tablet PO SCH (07:25)
[2018-02-22] MEDS: cinacalcet 30mg tablet PO SCH (07:25)
[2018-02-22] MEDS: diltiazem CD 180mg cap (once-daily) PO SCH (07:25)
[2018-02-22] MEDS: levoTHYROXINE 75mcg tablet PO SCH (07:25)
[2018-02-22] MEDS: ALPRAZolam 0.5mg tablet PO SCH (07:25)
[2018-02-22] MEDS: aspirin 81mg tablet.DR PO SCH (07:25)
[2018-02-22] MEDS: pantoprazole 40mg Tablet.DR PO SCH (07:25)
[2018-02-22] MEDS: labetalol 100mg tablet PO SCH ×3 (07:25→23:11)
[2018-02-22 07:28] LABS: ALANINE AMINOTRANSFERASE 18 U/L (12-78); ALBUMIN 2.4 G/DL (3.4-5.0); ALBUMIN/GLOBULIN RATIO 0.7 (1.1-1.5); ALKALINE PHOSPHATASE 82 IU/L (46-116); ANION GAP 17 (8-16); ASPARTATE AMINO TRANSFERASE 12 U/L (10-37); BILIRUBIN,TOTAL 0.7 MG/DL (0.1-1.0); BLOOD UREA NITROGEN 107 MG/DL (7-18); BUN/CREATININE RATIO 13.4 (6.6-38.0); CALCIUM 9.5 MG/DL (8.5-10.1); CHLORIDE 92 MMOL/L (99-107); CREATININE 8.01 MG/DL (0.40-0.90); GLUCOSE 216 MG/DL (70-104); PHOSPHORUS 7.1 MG/DL (2.3-4.5); POTASSIUM 4.4 MMOL/L (3.5-5.1); SODIUM 132 MMOL/L (135-145); TOTAL CARBON DIOXIDE 22.9 MMOL/L (24-32); TOTAL PROTEIN 5.9 G/DL (6.4-8.2); eGFR 5 ML/MIN
[2018-02-22] MEDS: heparin, porcine 5000 units/ml vial SQ SCH ×2 (07:28→19:41)
[2018-02-22] MEDS: piperacillin-tazo 2.25gm/50ml 50 ML IV SCH ×3 (07:29→23:45)
[2018-02-22] MEDS: hydrALAZINE 25 MG tablet PO SCH ×3 (07:30→23:54)
[2018-02-22] MEDS: docusate sod 100mg capsule PO SCH ×2 (07:30→19:42)
[2018-02-22] MEDS: acetaminophen 325mg tablet PO PRN (07:42)
[2018-02-22] MEDS ORDERED: normal saline 1000ml 250 ML IV PRN (08:00)
[2018-02-22] MEDS ORDERED: heparin 1,000 units/ml 10ml inj IV ONE (08:00)
[2018-02-22] MEDS ORDERED: LIDOcaine 1% (10mg/ml) 2ml vial SQ ONE (08:00)
[2018-02-22] MEDS ORDERED: epoetin 20,000 units/ml inj IV ONE (08:00)
[2018-02-22] MEDS ORDERED: IPRA3AMP9 NEB (13:24)
[2018-02-22 13:33] LABS: VITAMIN D, 1,25 DIHYDROXY 42.9 pg/mL (19.9-79.3)
[2018-02-23 02:00] VITALS: BP 170/72
[2018-02-23] MEDS: VANCOMYCIN LEVEL IV SCH (03:00)
[2018-02-23 07:00] VITALS: BP 158/52
[2018-02-23] MEDS: diltiazem CD 180mg cap (once-daily) PO SCH (08:00)
[2018-02-23] MEDS: labetalol 100mg tablet PO SCH (08:00)
[2018-02-23] MEDS: ipratropium/albuterol 3ml nebule NEB SCH ×2 (08:27→12:50)
[2018-02-23] MEDS: cinacalcet 30mg tablet PO SCH (08:59)
[2018-02-23] MEDS: ALPRAZolam 0.5mg tablet PO SCH (08:59)
[2018-02-23] MEDS: vitamin B comp w/Vit. C tab 1 TAB TABLET PO SCH (09:00)
[2018-02-23] MEDS: folic acid 1mg tablet PO SCH (09:00)
[2018-02-23] MEDS: citalopram 20mg tablet PO SCH (09:00)
[2018-02-23] MEDS: atorvastatin 20mg tablet PO SCH (09:01)
[2018-02-23] MEDS: docusate sod 100mg capsule PO SCH (09:01)
[2018-02-23] MEDS: aspirin 81mg tablet.DR PO SCH (09:01)
[2018-02-23] MEDS: lactobacillus rhamnosus 10,000 MMU CELLS/CAPSULE PO SCH (09:01)
[2018-02-23] MEDS: levoTHYROXINE 75mcg tablet PO SCH (09:01)
[2018-02-23] MEDS: heparin, porcine 5000 units/ml vial SQ SCH (09:02)
[2018-02-23] MEDS: methylPREDNISolone sod succ/PF 40mg inj. IV SCH (09:03)
[2018-02-23] MEDS: hydrALAZINE 25 MG tablet PO SCH (09:03)
[2018-02-23] MEDS: piperacillin-tazo 2.25gm/50ml 50 ML IV SCH (09:19)
[2018-02-23] MEDS: pantoprazole 40mg Tablet.DR PO SCH (09:19)
[2018-02-23 11:00] VITALS: BP 158/72
== END 2018-02-23 15:35 | DRG 190 ==
LOC: ER 17:58 → ED HOLD 20:50 → PCU 3S 21:33
PROVIDERS: ADMIT Internal Medicine Critical Care Medicine; ATTEND Internal Medicine Critical Care Medicine
PROC: 5A1D70Z Performance of Urinary Filtration, Intermittent, Less than 6 Hours Per Day (ICD-10-PCS; 2018-02-17)
PROC: 5A1D70Z Performance of Urinary Filtration, Intermittent, Less than 6 Hours Per Day (ICD-10-PCS; 2018-02-19)
PROC: 5A1D70Z Performance of Urinary Filtration, Intermittent, Less than 6 Hours Per Day (ICD-10-PCS; principal; 2018-02-22)
DX: J44.0 Chronic obstructive pulmonary disease with (acute) lower respiratory infection (principal); J18.9 Pneumonia, unspecified organism; N18.6 End stage renal disease; I13.2 Hypertensive heart and chronic kidney disease with heart failure and with stage 5 chronic kidney disease, or end stage renal disease; J44.1 Chronic obstructive pulmonary disease with (acute) exacerbation; Y95 Nosocomial condition; E78.00 Pure hypercholesterolemia, unspecified; E78.5 Hyperlipidemia, unspecified; E11.22 Type 2 diabetes mellitus with diabetic chronic kidney disease; I50.9 Heart failure, unspecified; F17.210 Nicotine dependence, cigarettes, uncomplicated; Z99.2 Dependence on renal dialysis; Z99.81 Dependence on supplemental oxygen; Z79.82 Long term (current) use of aspirin; Z79.899 Other long term (current) drug therapy; Z87.01 Personal history of pneumonia (recurrent); Z82.3 Family history of stroke; Z82.41 Family history of sudden cardiac death; Z82.49 Family history of ischemic heart disease and other diseases of the circulatory system; Z82.5 Family history of asthma and other chronic lower respiratory diseases; Z83.3 Family history of diabetes mellitus
CPT/HCPCS: 36415; 71045; 80053; 80202; 81001; 82306; 82652; 83605; 83690; 83735; 83970; 84100; 84145; 84443; 84484; 85025; 85610; 85730; 87040; 87070; 87077; 87088; 87186; 93005; 94640; 94760; 96365; 96368; 97116; 97162; 97530; 99285; A6402; G0257; J0360; J0885; J1644; J2270; J2405; J2543; J2920; J3370; J3490; J7030

== ENCOUNTER 2018-03-03 20:54 | Inpatient (IN) | payer MEDICARE, MEDICAID ==
[~2018-03-03] VITALS: Ht 170.2 cm; Wt 74.2 kg
[~2018-03-03 20:54] MED LIST changes: -FOLI0.4T2 PO; +FOLI1CAP8; +FOLI1TAB16 PO; +IPRA3AMP9 NEB; -LEVO250T2 PO
[2018-03-03 22:32] LABS: BASOPHILS % (AUTO) 0.4 % (0-1); EOSINOPHILS # (AUTO) 0.4 X10'3 (0-0.9); EOSINOPHILS % (AUTO) 4.8 % (0-6); LYMPHOCYTES # (AUTO) 1.6 X10'3 (1.1-4.8); LYMPHOCYTES % (AUTO) 18.7 % (21-51); MEAN CORPUSCULAR HEMOGLOBIN 34.7 PG (27.0-31.0); MEAN CORPUSCULAR HGB CONC 33.5 % (33.0-36.5); MEAN CORPUSCULAR VOLUME 103.6 FL (78-98); MEAN PLATELET VOLUME 8.6 FL (7.4-10.4); MONOCYTES # (AUTO) 0.9 X10'3 (0-0.9); MONOCYTES % (AUTO) 10.3 % (2-12); NEUTROPHILS # (AUTO) 5.5 X10'3 (1.8-7.7); NEUTROPHILS % (AUTO) 65.8 % (42-75); PLATELET COUNT 159 X10'3 (140-440); RED BLOOD COUNT 1.84 X10'6 (4.20-5.60); RED CELL DISTRIBUTION WIDTH 17.8 % (11.5-14.5); WHITE BLOOD COUNT 8.4 X10'3 (4.5-11.0)
[2018-03-03 22:36] LABS: HEMOGLOBIN 6.4 g/dl (12.0-16.0)
[2018-03-03 22:45] LABS: ALANINE AMINOTRANSFERASE 14 U/L (12-78); ALBUMIN/GLOBULIN RATIO 0.5 (1.1-1.5); ALKALINE PHOSPHATASE 95 IU/L (46-116); ANION GAP 2 (8-16); ASPARTATE AMINO TRANSFERASE 15 U/L (10-37); BILIRUBIN,TOTAL 0.3 MG/DL (0.1-1.0); BLOOD UREA NITROGEN 23 MG/DL (7-18); BUN/CREATININE RATIO 6.2 (6.6-38.0); CALCIUM 9.7 MG/DL (8.5-10.1); CHLORIDE 97 MMOL/L (99-107); CREATININE 3.69 MG/DL (0.40-0.90); GLUCOSE 82 MG/DL (70-104); POTASSIUM 3.2 MMOL/L (3.5-5.1); SODIUM 136 MMOL/L (135-145); TOTAL CARBON DIOXIDE 37.2 MMOL/L (24-32); eGFR 12 ML/MIN
[2018-03-03] MEDS ORDERED: acetaminophen 325mg tablet PO ONE (22:50)
[2018-03-03] MEDS ORDERED: ondansetron/PF 4mg/2ml inj IV PRN (23:20)
[2018-03-03] MEDS ORDERED: acetaminophen 325mg tablet PO PRN (23:20)
[2018-03-04] VITALS (14 sets, daily range): BP systolic 134–179; BP diastolic 54–76
[2018-03-04] MEDS ORDERED: albuterol 2.5 MG/3 ML nebule NEB SCH
[2018-03-04] MEDS: hydrALAZINE 25 MG tablet PO SCH ×4 (00:10→23:55)
[2018-03-04] MEDS: HYDROcodone/acetaminophen 5mg/325mg tablet PO PRN ×4 (01:54→17:20)
[2018-03-04] MEDS ORDERED: ipratropium/albuterol 3ml nebule NEB SCH (07:00)
[2018-03-04] MEDS: diltiazem CD 180mg cap (once-daily) PO SCH (07:12)
[2018-03-04] MEDS: citalopram 20mg tablet PO SCH (07:13)
[2018-03-04] MEDS: labetalol 100mg tablet PO SCH ×2 (07:13→18:39)
[2018-03-04] MEDS: cinacalcet 30mg tablet PO SCH (07:14)
[2018-03-04] MEDS: levoTHYROXINE 75mcg tablet PO SCH (07:14)
[2018-03-04] MEDS: folic acid 1mg tablet PO SCH (07:14)
[2018-03-04] MEDS: ALPRAZolam 0.5mg tablet PO SCH (07:15)
[2018-03-04] MEDS: atorvastatin 20mg tablet PO SCH (07:15)
[2018-03-04] MEDS: calcium acetate 667mg (PhosLO) capsule PO SCH ×3 (07:16→17:08)
[2018-03-04] MEDS: aspirin 325mg tablet, delayed-release (Ecotrin) PO SCH (07:16)
[2018-03-04] MEDS: heparin, porcine 5000 units/ml vial SQ SCH ×2 (07:19→21:16)
[2018-03-04] MEDS: vitamin B comp w/Vit. C tab 1 TAB TABLET PO SCH (07:19)
[2018-03-04 08:29] LABS: BASOPHILS # (AUTO) 0.1 X10'3 (0-0.2); BASOPHILS % (AUTO) 0.8 % (0-1); EOSINOPHILS # (AUTO) 0.5 X10'3 (0-0.9); EOSINOPHILS % (AUTO) 5.5 % (0-6); HEMATOCRIT 25.1 % (35.0-45.0); HEMOGLOBIN 8.4 g/dl (12.0-16.0); LYMPHOCYTES # (AUTO) 1.4 X10'3 (1.1-4.8); LYMPHOCYTES % (AUTO) 15.2 % (21-51); MEAN CORPUSCULAR HEMOGLOBIN 32.8 PG (27.0-31.0); MEAN CORPUSCULAR HGB CONC 33.4 % (33.0-36.5); MEAN CORPUSCULAR VOLUME 98.1 FL (78-98); MEAN PLATELET VOLUME 9.1 FL (7.4-10.4); MONOCYTES # (AUTO) 0.8 X10'3 (0-0.9); MONOCYTES % (AUTO) 8.9 % (2-12); NEUTROPHILS # (AUTO) 6.4 X10'3 (1.8-7.7); NEUTROPHILS % (AUTO) 69.6 % (42-75); PLATELET COUNT 142 X10'3 (140-440); RED BLOOD COUNT 2.56 X10'6 (4.20-5.60); RED CELL DISTRIBUTION WIDTH 19.6 % (11.5-14.5); WHITE BLOOD COUNT 9.3 X10'3 (4.5-11.0)
[2018-03-04 08:47] LABS: ALANINE AMINOTRANSFERASE 12 U/L (12-78); ALBUMIN/GLOBULIN RATIO 0.5 (1.1-1.5); ALKALINE PHOSPHATASE 90 IU/L (46-116); ANION GAP 5 (8-16); ASPARTATE AMINO TRANSFERASE 15 U/L (10-37); BILIRUBIN,TOTAL 0.4 MG/DL (0.1-1.0); BLOOD UREA NITROGEN 25 MG/DL (7-18); CALCIUM 9.2 MG/DL (8.5-10.1); CHLORIDE 96 MMOL/L (99-107); CREATININE 4.18 MG/DL (0.40-0.90); GLUCOSE 84 MG/DL (70-104); MAGNESIUM 1.8 MG/DL (1.5-2.4); PHOSPHORUS 2.8 MG/DL (2.3-4.5); POTASSIUM 3.5 MMOL/L (3.5-5.1); SODIUM 132 MMOL/L (135-145); TOTAL CARBON DIOXIDE 31.3 MMOL/L (24-32); TOTAL PROTEIN 5.9 G/DL (6.4-8.2); eGFR 11 ML/MIN
[2018-03-04 10:04] LABS: ANISOCYTOSIS 2+; HYPOCHROMASIA 1+; PLATELET ESTIMATE NORMAL; POLYCHROMASIA 1+
[2018-03-04] MEDS: ipratropium/albuterol 3ml nebule NEB PRN ×3 (10:59→20:23)
[2018-03-04] MEDS: hydrALAZINE 20mg/ml inj. IV PRN (21:42)
[2018-03-04] MEDS: acetaminophen 325mg tablet PO PRN (22:14)
[2018-03-05] VITALS (7 sets, daily range): BP systolic 142–182; BP diastolic 69–88
[2018-03-05] MEDS: ipratropium/albuterol 3ml nebule NEB PRN ×4 (03:43→15:52)
[2018-03-05] MEDS: HYDROcodone/acetaminophen 5mg/325mg tablet PO PRN ×3 (04:41→16:58)
[2018-03-05 05:49] LABS: BASOPHILS # (AUTO) 0.1 X10'3 (0-0.2); BASOPHILS % (AUTO) 0.6 % (0-1); EOSINOPHILS # (AUTO) 0.5 X10'3 (0-0.9); EOSINOPHILS % (AUTO) 5.4 % (0-6); HEMATOCRIT 24.6 % (35.0-45.0); HEMOGLOBIN 8.2 g/dl (12.0-16.0); LYMPHOCYTES % (AUTO) 11.1 % (21-51); MEAN CORPUSCULAR HEMOGLOBIN 32.8 PG (27.0-31.0); MEAN CORPUSCULAR HGB CONC 33.2 % (33.0-36.5); MEAN CORPUSCULAR VOLUME 98.6 FL (78-98); MEAN PLATELET VOLUME 9.5 FL (7.4-10.4); MONOCYTES # (AUTO) 0.6 X10'3 (0-0.9); MONOCYTES % (AUTO) 6.1 % (2-12); NEUTROPHILS % (AUTO) 76.8 % (42-75); PLATELET COUNT 137 X10'3 (140-440); RED CELL DISTRIBUTION WIDTH 19.5 % (11.5-14.5); WHITE BLOOD COUNT 9.1 X10'3 (4.5-11.0)
[2018-03-05 06:17] LABS: ALANINE AMINOTRANSFERASE 13 U/L (12-78); ALBUMIN 1.9 G/DL (3.4-5.0); ALBUMIN/GLOBULIN RATIO 0.5 (1.1-1.5); ALKALINE PHOSPHATASE 91 IU/L (46-116); ANION GAP 7 (8-16); ASPARTATE AMINO TRANSFERASE 6 U/L (10-37); BILIRUBIN,TOTAL 0.4 MG/DL (0.1-1.0); BLOOD UREA NITROGEN 37 MG/DL (7-18); BUN/CREATININE RATIO 6.7 (6.6-38.0); CALCIUM 10.1 MG/DL (8.5-10.1); CHLORIDE 92 MMOL/L (99-107); CREATININE 5.52 MG/DL (0.40-0.90); GLUCOSE 85 MG/DL (70-104); MAGNESIUM 1.7 MG/DL (1.5-2.4); PHOSPHORUS 2.9 MG/DL (2.3-4.5); POTASSIUM 3.3 MMOL/L (3.5-5.1); SODIUM 129 MMOL/L (135-145); TOTAL CARBON DIOXIDE 30.3 MMOL/L (24-32); TOTAL PROTEIN 5.6 G/DL (6.4-8.2); eGFR 8 ML/MIN
[2018-03-05 07:25] LABS: PLATELET ESTIMATE DECREASED
[2018-03-05 07:26] LABS: ANISOCYTOSIS 2+; POLYCHROMASIA 1+
[2018-03-05 07:28] LABS: HYPOCHROMASIA 1+
[2018-03-05] MEDS ORDERED: normal saline 1000ml 250 ML IV PRN (08:00)
[2018-03-05] MEDS ORDERED: epoetin 20,000 units/ml inj IV ONE (08:00)
[2018-03-05] MEDS ORDERED: heparin 1,000unit/ml 10ml vial 10 ML IV ONE (08:00)
[2018-03-05] MEDS ORDERED: heparin 1,000 units/ml 10ml inj IV ONE (08:00)
[2018-03-05] MEDS: heparin, porcine 5000 units/ml vial SQ SCH ×2 (08:00→19:58)
[2018-03-05] MEDS ORDERED: LIDOcaine 1% (10mg/ml) 2ml vial SQ ONE (08:00)
[2018-03-05] MEDS: ALPRAZolam 0.5mg tablet PO SCH (08:07)
[2018-03-05] MEDS: folic acid 1mg tablet PO SCH (08:08)
[2018-03-05] MEDS: labetalol 100mg tablet PO SCH ×2 (08:08→19:58)
[2018-03-05] MEDS: levoTHYROXINE 75mcg tablet PO SCH (08:08)
[2018-03-05] MEDS: cinacalcet 30mg tablet PO SCH (08:08)
[2018-03-05] MEDS: citalopram 20mg tablet PO SCH (08:09)
[2018-03-05] MEDS: atorvastatin 20mg tablet PO SCH (08:09)
[2018-03-05] MEDS: hydrALAZINE 25 MG tablet PO SCH ×2 (08:09→16:58)
[2018-03-05] MEDS: vitamin B comp w/Vit. C tab 1 TAB TABLET PO SCH (08:09)
[2018-03-05] MEDS: calcium acetate 667mg (PhosLO) capsule PO SCH ×3 (08:09→16:58)
[2018-03-05] MEDS: diltiazem CD 180mg cap (once-daily) PO SCH (08:10)
[2018-03-05] MEDS: aspirin 325mg tablet, delayed-release (Ecotrin) PO SCH (08:10)
[2018-03-05] MEDS: hydrALAZINE 20mg/ml inj. IV PRN (23:10)
[2018-03-06] VITALS (9 sets, daily range): BP systolic 139–191; BP diastolic 62–79
[2018-03-06] MEDS: hydrALAZINE 25 MG tablet PO SCH ×3 (00:20→16:28)
[2018-03-06] MEDS: ipratropium/albuterol 3ml nebule NEB PRN ×3 (02:05→16:38)
[2018-03-06] MEDS: HYDROcodone/acetaminophen 5mg/325mg tablet PO PRN ×5 (02:43→22:48)
[2018-03-06 05:25] LABS: BASOPHILS # (AUTO) 0.1 X10'3 (0-0.2); BASOPHILS % (AUTO) 0.9 % (0-1); EOSINOPHILS # (AUTO) 0.4 X10'3 (0-0.9); EOSINOPHILS % (AUTO) 5.1 % (0-6); HEMATOCRIT 25.4 % (35.0-45.0); HEMOGLOBIN 8.4 g/dl (12.0-16.0); LYMPHOCYTES # (AUTO) 1.2 X10'3 (1.1-4.8); LYMPHOCYTES % (AUTO) 14.8 % (21-51); MEAN CORPUSCULAR HEMOGLOBIN 32.8 PG (27.0-31.0); MEAN CORPUSCULAR HGB CONC 33.2 % (33.0-36.5); MEAN PLATELET VOLUME 8.8 FL (7.4-10.4); MONOCYTES # (AUTO) 0.7 X10'3 (0-0.9); NEUTROPHILS # (AUTO) 5.9 X10'3 (1.8-7.7); NEUTROPHILS % (AUTO) 71.2 % (42-75); PLATELET COUNT 143 X10'3 (140-440); RED BLOOD COUNT 2.56 X10'6 (4.20-5.60); WHITE BLOOD COUNT 8.3 X10'3 (4.5-11.0)
[2018-03-06 06:11] LABS: ALANINE AMINOTRANSFERASE 10 U/L (12-78); ALBUMIN 1.9 G/DL (3.4-5.0); ALBUMIN/GLOBULIN RATIO 0.5 (1.1-1.5); ALKALINE PHOSPHATASE 98 IU/L (46-116); ANION GAP 7 (8-16); ASPARTATE AMINO TRANSFERASE 14 U/L (10-37); BILIRUBIN,TOTAL 0.4 MG/DL (0.1-1.0); BLOOD UREA NITROGEN 27 MG/DL (7-18); BUN/CREATININE RATIO 6.6 (6.6-38.0); CALCIUM 10.2 MG/DL (8.5-10.1); CHLORIDE 96 MMOL/L (99-107); CREATININE 4.08 MG/DL (0.40-0.90); GLUCOSE 84 MG/DL (70-104); MAGNESIUM 1.8 MG/DL (1.5-2.4); PHOSPHORUS 2.5 MG/DL (2.3-4.5); POTASSIUM 4.1 MMOL/L (3.5-5.1); SODIUM 132 MMOL/L (135-145); TOTAL CARBON DIOXIDE 28.8 MMOL/L (24-32); TOTAL PROTEIN 5.9 G/DL (6.4-8.2); eGFR 11 ML/MIN
[2018-03-06 07:28] LABS: PLATELET ESTIMATE NORMAL
[2018-03-06 07:29] LABS: ANISOCYTOSIS 2+; HYPOCHROMASIA 1+; POLYCHROMASIA 2+
[2018-03-06] MEDS: levoTHYROXINE 75mcg tablet PO SCH (08:49)
[2018-03-06] MEDS: citalopram 20mg tablet PO SCH (08:49)
[2018-03-06] MEDS: cinacalcet 30mg tablet PO SCH (08:49)
[2018-03-06] MEDS: calcium acetate 667mg (PhosLO) capsule PO SCH ×3 (08:49→17:55)
[2018-03-06] MEDS: ALPRAZolam 0.5mg tablet PO SCH (08:49)
[2018-03-06] MEDS: folic acid 1mg tablet PO SCH (08:49)
[2018-03-06] MEDS: atorvastatin 20mg tablet PO SCH (08:49)
[2018-03-06] MEDS: diltiazem CD 180mg cap (once-daily) PO SCH (08:49)
[2018-03-06] MEDS: aspirin 325mg tablet, delayed-release (Ecotrin) PO SCH (08:49)
[2018-03-06] MEDS: vitamin B comp w/Vit. C tab 1 TAB TABLET PO SCH (08:49)
[2018-03-06] MEDS: heparin, porcine 5000 units/ml vial SQ SCH ×2 (08:50→20:05)
[2018-03-06 11:30] LABS: ABG BASE EXCESS 6.7 mmol/L (-2.0-3.0); ABG HCO3 31.4 mmol/L (22.0-26.0); ABG OXYGEN SATURATION 96.3 % (95-98); ABG PCO2 (T) 44.9 mmHg (32.0-45.0); ABG PO2 (T) 76.2 mmHg (83-108); ALLEN'S TEST Positive; FCOHb 1.1 % (0.5-1.5); FLOW 2 L/min; FO2Hb 95.2 % (94-100); PATIENT TEMPERATURE 36.4; TOTAL HEMOGLOBIN 8.9 G/dl (12.0-16.0)
[2018-03-06] MEDS: hydrALAZINE 20mg/ml inj. IV PRN ×2 (12:18→22:48)
[2018-03-06] MEDS: labetalol 100mg tablet PO SCH ×2 (13:27→20:05)
[2018-03-06] MEDS: ipratropium/albuterol 3ml nebule NEB SCH ×3 (16:18→23:03)
[2018-03-07] VITALS (7 sets, daily range): BP systolic 140–202; BP diastolic 67–83
[2018-03-07] MEDS: hydrALAZINE 25 MG tablet PO SCH ×4 (00:33→23:57)
[2018-03-07] MEDS: ipratropium/albuterol 3ml nebule NEB SCH ×6 (02:45→22:17)
[2018-03-07 06:18] LABS: BASOPHILS # (AUTO) 0.1 X10'3 (0-0.2); BASOPHILS % (AUTO) 0.9 % (0-1); EOSINOPHILS # (AUTO) 0.4 X10'3 (0-0.9); HEMATOCRIT 23.9 % (35.0-45.0); LYMPHOCYTES # (AUTO) 1.1 X10'3 (1.1-4.8); LYMPHOCYTES % (AUTO) 15.1 % (21-51); MEAN CORPUSCULAR HEMOGLOBIN 33.1 PG (27.0-31.0); MEAN CORPUSCULAR HGB CONC 33.5 % (33.0-36.5); MEAN CORPUSCULAR VOLUME 98.7 FL (78-98); MEAN PLATELET VOLUME 9.1 FL (7.4-10.4); MONOCYTES # (AUTO) 0.6 X10'3 (0-0.9); MONOCYTES % (AUTO) 8.1 % (2-12); NEUTROPHILS # (AUTO) 5.2 X10'3 (1.8-7.7); NEUTROPHILS % (AUTO) 69.9 % (42-75); PLATELET COUNT 137 X10'3 (140-440); RED BLOOD COUNT 2.42 X10'6 (4.20-5.60); WHITE BLOOD COUNT 7.4 X10'3 (4.5-11.0)
[2018-03-07 06:35] LABS: ALANINE AMINOTRANSFERASE 12 U/L (12-78); ALBUMIN 1.9 G/DL (3.4-5.0); ALBUMIN/GLOBULIN RATIO 0.5 (1.1-1.5); ALKALINE PHOSPHATASE 92 IU/L (46-116); ANION GAP 8 (8-16); ASPARTATE AMINO TRANSFERASE 14 U/L (10-37); BILIRUBIN,TOTAL 0.3 MG/DL (0.1-1.0); BLOOD UREA NITROGEN 39 MG/DL (7-18); CALCIUM 9.5 MG/DL (8.5-10.1); CHLORIDE 92 MMOL/L (99-107); CREATININE 5.61 MG/DL (0.40-0.90); GLUCOSE 78 MG/DL (70-104); MAGNESIUM 1.7 MG/DL (1.5-2.4); PHOSPHORUS 2.6 MG/DL (2.3-4.5); POTASSIUM 4.6 MMOL/L (3.5-5.1); SODIUM 128 MMOL/L (135-145); TOTAL CARBON DIOXIDE 28.5 MMOL/L (24-32); TOTAL PROTEIN 5.5 G/DL (6.4-8.2); eGFR 8 ML/MIN
[2018-03-07 07:32] LABS: ANISOCYTOSIS 2+; PLATELET ESTIMATE DECREASED
[2018-03-07] MEDS: ALPRAZolam 0.5mg tablet PO SCH (07:43)
[2018-03-07] MEDS: cinacalcet 30mg tablet PO SCH (07:43)
[2018-03-07] MEDS: atorvastatin 20mg tablet PO SCH (07:43)
[2018-03-07] MEDS: diltiazem CD 180mg cap (once-daily) PO SCH (07:43)
[2018-03-07] MEDS: calcium acetate 667mg (PhosLO) capsule PO SCH ×3 (07:43→17:45)
[2018-03-07] MEDS: labetalol 100mg tablet PO SCH ×3 (07:43→22:16)
[2018-03-07] MEDS: levoTHYROXINE 75mcg tablet PO SCH (07:43)
[2018-03-07] MEDS: aspirin 325mg tablet, delayed-release (Ecotrin) PO SCH (07:44)
[2018-03-07] MEDS: folic acid 1mg tablet PO SCH (07:44)
[2018-03-07] MEDS: vitamin B comp w/Vit. C tab 1 TAB TABLET PO SCH (07:44)
[2018-03-07] MEDS: citalopram 20mg tablet PO SCH (07:44)
[2018-03-07] MEDS: HYDROcodone/acetaminophen 5mg/325mg tablet PO PRN ×2 (07:45→19:14)
[2018-03-07] MEDS: heparin, porcine 5000 units/ml vial SQ SCH ×2 (07:46→19:28)
[2018-03-07] MEDS: piperacillin-tazo 2.25gm/50ml 50 ML IV SCH (17:43)
[2018-03-07] MEDS: ipratropium/albuterol 3ml nebule NEB PRN (19:25)
[2018-03-07] MEDS ORDERED: vancomycin/NS 1 GM ADD-VANTAGE 250 ML IV SCH (20:00)
[2018-03-08] MEDS: HYDROcodone/acetaminophen 5mg/325mg tablet PO PRN ×5 (00:02→21:40)
[2018-03-08] MEDS: ipratropium/albuterol 3ml nebule NEB PRN (00:13)
[2018-03-08 02:00] VITALS: BP 133/82
[2018-03-08] MEDS: piperacillin-tazo 2.25gm/50ml 50 ML IV SCH ×4 (02:15→19:46)
[2018-03-08] MEDS ORDERED: VANCOMYCIN LEVEL IV SCH (03:00)
[2018-03-08] MEDS: ipratropium/albuterol 3ml nebule NEB SCH ×6 (03:22→22:57)
[2018-03-08 06:00] VITALS: BP 169/74
[2018-03-08 06:27] LABS: BASOPHILS # (AUTO) 0.1 X10'3 (0-0.2); BASOPHILS % (AUTO) 1.1 % (0-1); EOSINOPHILS # (AUTO) 0.4 X10'3 (0-0.9); EOSINOPHILS % (AUTO) 5.9 % (0-6); HEMATOCRIT 24.4 % (35.0-45.0); HEMOGLOBIN 8.2 g/dl (12.0-16.0); LYMPHOCYTES # (AUTO) 0.7 X10'3 (1.1-4.8); LYMPHOCYTES % (AUTO) 11.8 % (21-51); MEAN CORPUSCULAR HEMOGLOBIN 32.7 PG (27.0-31.0); MEAN CORPUSCULAR HGB CONC 33.5 % (33.0-36.5); MEAN CORPUSCULAR VOLUME 97.7 FL (78-98); MONOCYTES # (AUTO) 0.5 X10'3 (0-0.9); MONOCYTES % (AUTO) 7.3 % (2-12); NEUTROPHILS # (AUTO) 4.7 X10'3 (1.8-7.7); NEUTROPHILS % (AUTO) 73.9 % (42-75); PLATELET COUNT 138 X10'3 (140-440); RED CELL DISTRIBUTION WIDTH 18.7 % (11.5-14.5); WHITE BLOOD COUNT 6.3 X10'3 (4.5-11.0)
[2018-03-08 06:49] LABS: ANISOCYTOSIS 2+; PLATELET ESTIMATE DECREASED
[2018-03-08 06:52] LABS: ALANINE AMINOTRANSFERASE 8 U/L (12-78); ALBUMIN/GLOBULIN RATIO 0.5 (1.1-1.5); ALKALINE PHOSPHATASE 99 IU/L (46-116); ANION GAP 8 (8-16); ASPARTATE AMINO TRANSFERASE 14 U/L (10-37); BILIRUBIN,TOTAL 0.4 MG/DL (0.1-1.0); BLOOD UREA NITROGEN 51 MG/DL (7-18); BUN/CREATININE RATIO 7.8 (6.6-38.0); CALCIUM 8.5 MG/DL (8.5-10.1); CHLORIDE 89 MMOL/L (99-107); CREATININE 6.54 MG/DL (0.40-0.90); GLUCOSE 66 MG/DL (70-104); MAGNESIUM 1.9 MG/DL (1.5-2.4); PHOSPHORUS 2.9 MG/DL (2.3-4.5); POTASSIUM 5.2 MMOL/L (3.5-5.1); SODIUM 124 MMOL/L (135-145); TOTAL CARBON DIOXIDE 27.2 MMOL/L (24-32); eGFR 6 ML/MIN
[2018-03-08] MEDS ORDERED: vancomycin/NS 1 GM ADD-VANTAGE 250 ML IV PRN (07:35)
[2018-03-08] MEDS: aspirin 325mg tablet, delayed-release (Ecotrin) PO SCH (07:53)
[2018-03-08] MEDS: cinacalcet 30mg tablet PO SCH (07:53)
[2018-03-08] MEDS: ALPRAZolam 0.5mg tablet PO SCH (07:53)
[2018-03-08] MEDS: calcium acetate 667mg (PhosLO) capsule PO SCH ×3 (07:53→17:22)
[2018-03-08] MEDS: vitamin B comp w/Vit. C tab 1 TAB TABLET PO SCH (07:53)
[2018-03-08] MEDS: atorvastatin 20mg tablet PO SCH (07:54)
[2018-03-08] MEDS: levoTHYROXINE 75mcg tablet PO SCH (07:54)
[2018-03-08] MEDS: hydrALAZINE 25 MG tablet PO SCH ×2 (07:54→15:52)
[2018-03-08] MEDS: diltiazem CD 180mg cap (once-daily) PO SCH (07:54)
[2018-03-08] MEDS: heparin, porcine 5000 units/ml vial SQ SCH ×2 (07:54→19:46)
[2018-03-08] MEDS: citalopram 20mg tablet PO SCH (07:54)
[2018-03-08] MEDS: folic acid 1mg tablet PO SCH (07:54)
[2018-03-08] MEDS: labetalol 100mg tablet PO SCH ×3 (07:55→21:38)
[2018-03-08] MEDS ORDERED: heparin 1,000 units/ml 10ml inj IV ONE (08:00)
[2018-03-08] MEDS ORDERED: heparin 1,000unit/ml 10ml vial 10 ML IV ONE (08:00)
[2018-03-08] MEDS ORDERED: normal saline 1000ml 250 ML IV PRN (08:00)
[2018-03-08] MEDS ORDERED: epoetin 20,000 units/ml inj IV ONE (08:00)
[2018-03-08 11:00] VITALS: BP 177/78
[2018-03-08 15:00] VITALS: BP 197/100
[2018-03-08 19:00] VITALS: BP 137/87
[2018-03-08] MEDS: lactobacillus rhamnosus 10,000 MMU CELLS/CAPSULE PO SCH (19:45)
[2018-03-08 21:00] VITALS: BP 120/66
[2018-03-09] MEDS: hydrALAZINE 25 MG tablet PO SCH ×3 (00:03→16:24)
[2018-03-09] MEDS: piperacillin-tazo 2.25gm/50ml 50 ML IV SCH ×4 (02:31→19:32)
[2018-03-09 03:00] VITALS: BP 163/75
[2018-03-09] MEDS: VANCOMYCIN LEVEL IV SCH (03:00)
[2018-03-09] MEDS: HYDROcodone/acetaminophen 5mg/325mg tablet PO PRN ×4 (03:22→20:21)
[2018-03-09] MEDS: ipratropium/albuterol 3ml nebule NEB SCH ×6 (03:30→23:18)
[2018-03-09 06:45] VITALS: BP 167/71
[2018-03-09] MEDS: vitamin B comp w/Vit. C tab 1 TAB TABLET PO SCH (07:12)
[2018-03-09] MEDS: citalopram 20mg tablet PO SCH (07:12)
[2018-03-09] MEDS: atorvastatin 20mg tablet PO SCH (07:13)
[2018-03-09] MEDS: ALPRAZolam 0.5mg tablet PO SCH (07:13)
[2018-03-09] MEDS: lactobacillus rhamnosus 10,000 MMU CELLS/CAPSULE PO SCH ×2 (07:13→19:38)
[2018-03-09] MEDS: aspirin 81mg tablet.DR PO SCH (07:13)
[2018-03-09] MEDS: heparin, porcine 5000 units/ml vial SQ SCH ×2 (07:13→19:38)
[2018-03-09] MEDS: labetalol 100mg tablet PO SCH ×3 (07:13→20:19)
[2018-03-09] MEDS: levoTHYROXINE 75mcg tablet PO SCH (07:14)
[2018-03-09] MEDS: calcium acetate 667mg (PhosLO) capsule PO SCH ×3 (07:14→17:37)
[2018-03-09] MEDS: folic acid 1mg tablet PO SCH (07:14)
[2018-03-09] MEDS: diltiazem CD 180mg cap (once-daily) PO SCH (07:14)
[2018-03-09] MEDS: cinacalcet 30mg tablet PO SCH (07:14)
[2018-03-09 12:14] VITALS: BP 159/66
[2018-03-09 16:15] VITALS: BP 103/61
[2018-03-09] MEDS: hydrALAZINE 20mg/ml inj. IV PRN (18:05)
[2018-03-09 19:00] VITALS: BP 186/78
[2018-03-09 23:00] VITALS: BP 155/59
[2018-03-10] MEDS: piperacillin-tazo 2.25gm/50ml 50 ML IV SCH ×5 (01:05→20:15)
[2018-03-10] MEDS: hydrALAZINE 25 MG tablet PO SCH ×3 (01:05→15:39)
[2018-03-10 03:00] VITALS: BP 164/75
[2018-03-10] MEDS: VANCOMYCIN LEVEL IV SCH (03:00)
[2018-03-10] MEDS: ipratropium/albuterol 3ml nebule NEB SCH ×6 (03:33→23:33)
[2018-03-10 06:00] VITALS: BP 181/79
[2018-03-10 06:31] LABS: HEMATOCRIT 22.9 % (35.0-45.0); HEMOGLOBIN 7.6 g/dl (12.0-16.0); MEAN CORPUSCULAR HEMOGLOBIN 32.7 PG (27.0-31.0); MEAN CORPUSCULAR HGB CONC 33.4 % (33.0-36.5); MEAN CORPUSCULAR VOLUME 97.9 FL (78-98); MEAN PLATELET VOLUME 9.3 FL (7.4-10.4); PLATELET COUNT 164 X10'3 (140-440); RED BLOOD COUNT 2.33 X10'6 (4.20-5.60); RED CELL DISTRIBUTION WIDTH 19.1 % (11.5-14.5); WHITE BLOOD COUNT 6.9 X10'3 (4.5-11.0)
[2018-03-10] MEDS ORDERED: LIDOcaine 1% (10mg/ml) 2ml vial SQ ONE (08:00)
[2018-03-10] MEDS: heparin, porcine 5000 units/ml vial SQ SCH ×2 (08:00→20:11)
[2018-03-10] MEDS ORDERED: normal saline 1000ml 250 ML IV PRN (08:00)
[2018-03-10] MEDS ORDERED: heparin 1,000unit/ml 10ml vial 10 ML IV ONE (08:00)
[2018-03-10] MEDS ORDERED: epoetin 20,000 units/ml inj IV ONE (08:00)
[2018-03-10] MEDS: lactobacillus rhamnosus 10,000 MMU CELLS/CAPSULE PO SCH ×2 (08:29→20:11)
[2018-03-10] MEDS: levoTHYROXINE 75mcg tablet PO SCH (08:29)
[2018-03-10] MEDS: vitamin B comp w/Vit. C tab 1 TAB TABLET PO SCH (08:29)
[2018-03-10] MEDS: aspirin 81mg tablet.DR PO SCH (08:29)
[2018-03-10] MEDS: atorvastatin 20mg tablet PO SCH (08:30)
[2018-03-10] MEDS: citalopram 20mg tablet PO SCH (08:30)
[2018-03-10] MEDS: labetalol 100mg tablet PO SCH ×3 (08:30→20:11)
[2018-03-10] MEDS: diltiazem CD 180mg cap (once-daily) PO SCH (08:31)
[2018-03-10] MEDS: folic acid 1mg tablet PO SCH (08:32)
[2018-03-10] MEDS: ALPRAZolam 0.5mg tablet PO SCH (08:32)
[2018-03-10] MEDS: calcium acetate 667mg (PhosLO) capsule PO SCH ×3 (08:32→19:40)
[2018-03-10] MEDS: cinacalcet 30mg tablet PO SCH (08:33)
[2018-03-10] MEDS: HYDROcodone/acetaminophen 5mg/325mg tablet PO PRN ×3 (08:39→22:08)
[2018-03-10 11:00] VITALS: BP 104/81
[2018-03-10 15:00] VITALS: BP 193/74
[2018-03-10 18:00] VITALS: BP 155/51
[2018-03-10] MEDS: ipratropium/albuterol 3ml nebule NEB PRN (21:52)
[2018-03-10 22:00] VITALS: BP 141/77
[2018-03-11] VITALS (8 sets, daily range): BP systolic 146–188; BP diastolic 53–82
[2018-03-11] MEDS: hydrALAZINE 25 MG tablet PO SCH ×4 (00:21→23:37)
[2018-03-11] MEDS: HYDROcodone/acetaminophen 5mg/325mg tablet PO PRN ×4 (02:41→23:38)
[2018-03-11] MEDS: piperacillin-tazo 2.25gm/50ml 50 ML IV SCH ×4 (02:41→20:25)
[2018-03-11] MEDS: ipratropium/albuterol 3ml nebule NEB SCH ×6 (02:54→23:15)
[2018-03-11] MEDS: VANCOMYCIN LEVEL IV SCH (03:00)
[2018-03-11] MEDS: hydrALAZINE 20mg/ml inj. IV PRN (04:51)
[2018-03-11] MEDS: NUT.TX.IMP.RENAL FXN,LAC-REDUC (Nepro) 237 ML VANILLA PO SCH ×2 (07:30→08:30)
[2018-03-11] MEDS ORDERED: vancomycin/NS 1 GM ADD-VANTAGE 250 ML IV ONE (07:40)
[2018-03-11] MEDS: heparin, porcine 5000 units/ml vial SQ SCH ×2 (08:00→20:26)
[2018-03-11] MEDS: calcium acetate 667mg (PhosLO) capsule PO SCH ×3 (08:48→18:00)
[2018-03-11] MEDS: lactobacillus rhamnosus 10,000 MMU CELLS/CAPSULE PO SCH ×2 (08:49→20:25)
[2018-03-11] MEDS: aspirin 81mg tablet.DR PO SCH (08:49)
[2018-03-11] MEDS: folic acid 1mg tablet PO SCH (08:50)
[2018-03-11] MEDS: ALPRAZolam 0.5mg tablet PO SCH (08:50)
[2018-03-11] MEDS: cinacalcet 30mg tablet PO SCH (08:50)
[2018-03-11] MEDS: labetalol 100mg tablet PO SCH ×3 (08:51→20:25)
[2018-03-11] MEDS: levoTHYROXINE 75mcg tablet PO SCH (08:52)
[2018-03-11] MEDS: atorvastatin 20mg tablet PO SCH (08:52)
[2018-03-11] MEDS: vitamin B comp w/Vit. C tab 1 TAB TABLET PO SCH (08:53)
[2018-03-11] MEDS: citalopram 20mg tablet PO SCH (08:53)
[2018-03-11] MEDS: diltiazem CD 180mg cap (once-daily) PO SCH (08:54)
[2018-03-11] MEDS ORDERED: LIDOcaine 1%/PF 5ML 10 MG/ML VIAL ONE (11:00)
[2018-03-12 02:00] VITALS: BP 152/67
[2018-03-12] MEDS: piperacillin-tazo 2.25gm/50ml 50 ML IV SCH ×4 (02:11→19:23)
[2018-03-12] MEDS: VANCOMYCIN LEVEL IV SCH (03:00)
[2018-03-12] MEDS: ipratropium/albuterol 3ml nebule NEB SCH ×6 (03:37→23:27)
[2018-03-12 06:00] VITALS: BP 177/73
[2018-03-12] MEDS ORDERED: normal saline 1000ml 250 ML IV PRN (07:41)
[2018-03-12] MEDS ORDERED: LIDOcaine 1% (10mg/ml) 2ml vial SQ ONE (07:45)
[2018-03-12] MEDS ORDERED: epoetin 20,000 units/ml inj IV ONE (07:50)
[2018-03-12] MEDS: labetalol 100mg tablet PO SCH ×3 (07:52→20:11)
[2018-03-12] MEDS: citalopram 20mg tablet PO SCH (07:52)
[2018-03-12] MEDS: lactobacillus rhamnosus 10,000 MMU CELLS/CAPSULE PO SCH ×2 (07:53→19:22)
[2018-03-12] MEDS: vitamin B comp w/Vit. C tab 1 TAB TABLET PO SCH (07:53)
[2018-03-12] MEDS: aspirin 81mg tablet.DR PO SCH (07:53)
[2018-03-12] MEDS: ALPRAZolam 0.5mg tablet PO SCH (07:53)
[2018-03-12] MEDS: diltiazem CD 180mg cap (once-daily) PO SCH (07:54)
[2018-03-12] MEDS: HYDROcodone/acetaminophen 5mg/325mg tablet PO PRN ×3 (07:54→23:20)
[2018-03-12] MEDS: folic acid 1mg tablet PO SCH (07:55)
[2018-03-12] MEDS: hydrALAZINE 25 MG tablet PO SCH ×3 (07:55→23:19)
[2018-03-12] MEDS: calcium acetate 667mg (PhosLO) capsule PO SCH ×3 (07:55→18:00)
[2018-03-12] MEDS: levoTHYROXINE 75mcg tablet PO SCH (07:56)
[2018-03-12] MEDS: atorvastatin 20mg tablet PO SCH (07:57)
[2018-03-12] MEDS: cinacalcet 30mg tablet PO SCH (07:57)
[2018-03-12] MEDS: heparin, porcine 5000 units/ml vial SQ SCH ×2 (08:00→19:23)
[2018-03-12] MEDS: NUT.TX.IMP.RENAL FXN,LAC-REDUC (Nepro) 237 ML VANILLA PO SCH (08:00)
[2018-03-12 08:27] LABS: HEMATOCRIT 22.4 % (35.0-45.0); HEMOGLOBIN 7.5 g/dl (12.0-16.0); MEAN CORPUSCULAR HGB CONC 33.4 % (33.0-36.5); MEAN CORPUSCULAR VOLUME 98.7 FL (78-98); MEAN PLATELET VOLUME 8.6 FL (7.4-10.4); PLATELET COUNT 208 X10'3 (140-440); RED BLOOD COUNT 2.27 X10'6 (4.20-5.60); RED CELL DISTRIBUTION WIDTH 19.8 % (11.5-14.5)
[2018-03-12 11:00] VITALS: BP 143/78
[2018-03-12 15:00] VITALS: BP 133/79
[2018-03-12 18:00] VITALS: BP 176/60
[2018-03-12] MEDS: acetaminophen 325mg tablet PO PRN (19:32)
[2018-03-12 22:00] VITALS: BP 176/42
[2018-03-13 02:00] VITALS: BP 139/70
[2018-03-13] MEDS: piperacillin-tazo 2.25gm/50ml 50 ML IV SCH ×3 (02:41→13:55)
[2018-03-13] MEDS: VANCOMYCIN LEVEL IV SCH (03:00)
[2018-03-13] MEDS: ipratropium/albuterol 3ml nebule NEB SCH ×4 (03:21→15:00)
[2018-03-13 06:00] VITALS: BP 167/70
[2018-03-13] MEDS: ALPRAZolam 0.5mg tablet PO SCH (08:00)
[2018-03-13] MEDS: aspirin 81mg tablet.DR PO SCH (08:00)
[2018-03-13] MEDS: diltiazem CD 180mg cap (once-daily) PO SCH (08:00)
[2018-03-13] MEDS: cinacalcet 30mg tablet PO SCH (08:00)
[2018-03-13] MEDS: levoTHYROXINE 75mcg tablet PO SCH (08:00)
[2018-03-13] MEDS: vitamin B comp w/Vit. C tab 1 TAB TABLET PO SCH (08:00)
[2018-03-13] MEDS: lactobacillus rhamnosus 10,000 MMU CELLS/CAPSULE PO SCH (08:00)
[2018-03-13] MEDS: calcium acetate 667mg (PhosLO) capsule PO SCH ×2 (08:00→12:27)
[2018-03-13] MEDS: folic acid 1mg tablet PO SCH (08:00)
[2018-03-13] MEDS: labetalol 100mg tablet PO SCH ×2 (08:00→12:27)
[2018-03-13] MEDS: heparin, porcine 5000 units/ml vial SQ SCH (08:00)
[2018-03-13] MEDS: citalopram 20mg tablet PO SCH (08:00)
[2018-03-13] MEDS: atorvastatin 20mg tablet PO SCH (08:00)
[2018-03-13] MEDS: hydrALAZINE 25 MG tablet PO SCH ×2 (08:00→15:51)
[2018-03-13] MEDS: HYDROcodone/acetaminophen 5mg/325mg tablet PO PRN ×2 (08:38→15:14)
[2018-03-13 11:00] VITALS: BP 178/62
[2018-03-13 15:00] VITALS: BP 166/57
== END 2018-03-13 16:07 | DRG 811 ==
LOC: ER 20:54 → ED HOLD 23:18 → PCU 3S 03-04 00:49
PROVIDERS: ADMIT Internal Medicine Critical Care Medicine
PROC: 30233N1 Transfusion of Nonautologous Red Blood Cells into Peripheral Vein, Percutaneous Approach (ICD-10-PCS; 2018-03-04)
PROC: 5A1D70Z Performance of Urinary Filtration, Intermittent, Less than 6 Hours Per Day (ICD-10-PCS; 2018-03-05)
PROC: 5A1D70Z Performance of Urinary Filtration, Intermittent, Less than 6 Hours Per Day (ICD-10-PCS; 2018-03-08)
PROC: 5A1D70Z Performance of Urinary Filtration, Intermittent, Less than 6 Hours Per Day (ICD-10-PCS; principal; 2018-03-10)
PROC: 0W993ZZ Drainage of Right Pleural Cavity, Percutaneous Approach (ICD-10-PCS; 2018-03-11)
PROC: 5A1D70Z Performance of Urinary Filtration, Intermittent, Less than 6 Hours Per Day (ICD-10-PCS; 2018-03-12)
DX: D64.9 Anemia, unspecified (principal); J18.9 Pneumonia, unspecified organism; N18.6 End stage renal disease; I13.2 Hypertensive heart and chronic kidney disease with heart failure and with stage 5 chronic kidney disease, or end stage renal disease; J44.0 Chronic obstructive pulmonary disease with (acute) lower respiratory infection; J96.10 Chronic respiratory failure, unspecified whether with hypoxia or hypercapnia; J90 Pleural effusion, not elsewhere classified; K59.00 Constipation, unspecified; E78.00 Pure hypercholesterolemia, unspecified; F17.210 Nicotine dependence, cigarettes, uncomplicated; I48.91 Unspecified atrial fibrillation; I50.9 Heart failure, unspecified; Z56.0 Unemployment, unspecified; Z99.2 Dependence on renal dialysis; Z99.81 Dependence on supplemental oxygen; Z79.899 Other long term (current) drug therapy; Z79.82 Long term (current) use of aspirin; Z82.3 Family history of stroke; Z80.9 Family history of malignant neoplasm, unspecified; Z83.3 Family history of diabetes mellitus; Z82.49 Family history of ischemic heart disease and other diseases of the circulatory system; Z82.5 Family history of asthma and other chronic lower respiratory diseases
CPT/HCPCS: 32555; 36415; 36600; 71045; 71046; 71250; 80053; 80202; 82803; 83735; 84100; 84443; 85018; 85025; 85027; 86885; 86900; 86901; 86922; 87070; 93005; 94640; 94760; 97116; 97162; 97530; 99285; A6213; A6402; A6449; G0257; J0360; J0885; J1644; J2001; J2543; J3370; J3490; J7030; P9016

== ENCOUNTER 2018-03-20 18:47 | Inpatient (IN) | payer MEDICARE, MEDICAID ==
[~2018-03-20] VITALS: Ht 170.2 cm; Wt 108.8 kg
[~2018-03-20 18:47] MED LIST changes: -FOLI1CAP8
[2018-03-20 19:32] LABS: BASOPHILS % (AUTO) 0 % (0-1); EOSINOPHILS # (AUTO) 0.6 X10'3 (0-0.9); EOSINOPHILS % (AUTO) 4.8 % (0-6); HEMATOCRIT 26.2 % (35.0-45.0); HEMOGLOBIN 8.5 g/dl (12.0-16.0); LYMPHOCYTES # (AUTO) 0.5 X10'3 (1.1-4.8); LYMPHOCYTES % (AUTO) 3.5 % (21-51); MEAN CORPUSCULAR HEMOGLOBIN 32.5 PG (27.0-31.0); MEAN CORPUSCULAR HGB CONC 32.4 % (33.0-36.5); MEAN CORPUSCULAR VOLUME 100.3 FL (78-98); MEAN PLATELET VOLUME 8.7 FL (7.4-10.4); MONOCYTES # (AUTO) 0.6 X10'3 (0-0.9); MONOCYTES % (AUTO) 4.9 % (2-12); NEUTROPHILS # (AUTO) 11.4 X10'3 (1.8-7.7); NEUTROPHILS % (AUTO) 86.8 % (42-75); PLATELET COUNT 299 X10'3 (140-440); RED BLOOD COUNT 2.61 X10'6 (4.20-5.60); RED CELL DISTRIBUTION WIDTH 21.2 % (11.5-14.5); WHITE BLOOD COUNT 13.2 X10'3 (4.5-11.0)
[2018-03-20 19:36] LABS: PARTIAL THROMBOPLASTIN TIME 29 SECONDS (22-32); PROTHROMBIN TIME 10.3 SECONDS (9.0-12.0)
[2018-03-20 19:42] LABS: ALANINE AMINOTRANSFERASE 16 U/L (12-78); ALBUMIN 3.1 G/DL (3.4-5.0); ALBUMIN/GLOBULIN RATIO 0.7 (1.1-1.5); ALKALINE PHOSPHATASE 101 IU/L (46-116); ANION GAP 6 (8-16); ASPARTATE AMINO TRANSFERASE 19 U/L (10-37); BILIRUBIN,TOTAL 0.4 MG/DL (0.1-1.0); BLOOD UREA NITROGEN 34 MG/DL (7-18); BUN/CREATININE RATIO 7.7 (6.6-38.0); CALCIUM 10.6 MG/DL (8.5-10.1); CHLORIDE 90 MMOL/L (99-107); CREATININE 4.42 MG/DL (0.40-0.90); GLUCOSE 91 MG/DL (70-104); MAGNESIUM 2.2 MG/DL (1.5-2.4); POTASSIUM 4.7 MMOL/L (3.5-5.1); SODIUM 131 MMOL/L (135-145); TOTAL CARBON DIOXIDE 34.8 MMOL/L (24-32); TOTAL PROTEIN 7.5 G/DL (6.4-8.2); eGFR 10 ML/MIN
[2018-03-20 21:01] LABS: PLATELET ESTIMATE NORMAL; TOTAL CELLS COUNTED 100
[2018-03-20 21:03] LABS: LARGE PLATELETS FEW; POLYCHROMASIA FEW
[2018-03-20] MEDS ORDERED: albuterol 2.5 MG/3 ML nebule NEB PRN (21:10)
[2018-03-20] MEDS ORDERED: ondansetron/PF 4mg/2ml inj IV PRN (21:20)
[2018-03-20] MEDS ORDERED: vancomycin/NS 1 GM ADD-VANTAGE 250 ML IV ONE (21:25)
[2018-03-20] MEDS ORDERED: vancomycin/NS 1 GM ADD-VANTAGE 250 ML IV PRN (22:10)
[2018-03-20 23:00] VITALS: BP 164/64
[2018-03-20] MEDS: albuterol 2.5 MG/3 ML nebule NEB SCH (23:17)
[2018-03-21] VITALS (18 sets, daily range): BP systolic 114–228; BP diastolic 39–87
[2018-03-21] MEDS: hydrALAZINE 25 MG tablet PO SCH ×4 (00:02→16:00)
[2018-03-21] MEDS: piperacillin-tazo 2.25gm/50ml 50 ML IV SCH ×4 (02:20→23:45)
[2018-03-21] MEDS: albuterol 2.5 MG/3 ML nebule NEB SCH ×5 (03:00→19:34)
[2018-03-21] MEDS: acetaminophen 325mg tablet PO PRN ×2 (05:43→10:40)
[2018-03-21 06:07] LABS: BASOPHILS % (AUTO) 0.1 % (0-1); EOSINOPHILS # (AUTO) 0.2 X10'3 (0-0.9); EOSINOPHILS % (AUTO) 1.7 % (0-6); LYMPHOCYTES # (AUTO) 0.6 X10'3 (1.1-4.8); LYMPHOCYTES % (AUTO) 5.3 % (21-51); MEAN CORPUSCULAR HEMOGLOBIN 33.5 PG (27.0-31.0); MEAN CORPUSCULAR HGB CONC 33.9 % (33.0-36.5); MEAN CORPUSCULAR VOLUME 99.1 FL (78-98); MEAN PLATELET VOLUME 8.9 FL (7.4-10.4); MONOCYTES # (AUTO) 0.7 X10'3 (0-0.9); MONOCYTES % (AUTO) 5.7 % (2-12); NEUTROPHILS # (AUTO) 10.4 X10'3 (1.8-7.7); NEUTROPHILS % (AUTO) 87.2 % (42-75); PLATELET COUNT 214 X10'3 (140-440); RED BLOOD COUNT 1.96 X10'6 (4.20-5.60); RED CELL DISTRIBUTION WIDTH 20.4 % (11.5-14.5)
[2018-03-21 06:16] LABS: ALANINE AMINOTRANSFERASE 15 U/L (12-78); ALBUMIN 2.2 G/DL (3.4-5.0); ALBUMIN/GLOBULIN RATIO 0.6 (1.1-1.5); ALKALINE PHOSPHATASE 67 IU/L (46-116); ANION GAP 7 (8-16); ASPARTATE AMINO TRANSFERASE 13 U/L (10-37); BILIRUBIN,TOTAL 0.4 MG/DL (0.1-1.0); BLOOD UREA NITROGEN 41 MG/DL (7-18); BUN/CREATININE RATIO 8.1 (6.6-38.0); CALCIUM 9.7 MG/DL (8.5-10.1); CHLORIDE 92 MMOL/L (99-107); CREATININE 5.05 MG/DL (0.40-0.90); GLUCOSE 83 MG/DL (70-104); MAGNESIUM 2.1 MG/DL (1.5-2.4); PHOSPHORUS 1.9 MG/DL (2.3-4.5); SODIUM 129 MMOL/L (135-145); TOTAL CARBON DIOXIDE 29.7 MMOL/L (24-32); TOTAL PROTEIN 5.7 G/DL (6.4-8.2); eGFR 9 ML/MIN
[2018-03-21 06:18] LABS: HEMATOCRIT 19.4 % (35.0-45.0); HEMOGLOBIN 6.6 g/dl (12.0-16.0)
[2018-03-21 07:13] LABS: MEAN PLATELET VOLUME 8.6 FL (7.4-10.4); PLATELET COUNT 207 X10'3 (140-440); RED BLOOD COUNT 2.03 X10'6 (4.20-5.60); RED CELL DISTRIBUTION WIDTH 21.4 % (11.5-14.5); WHITE BLOOD COUNT 12.2 X10'3 (4.5-11.0)
[2018-03-21 07:19] LABS: HEMATOCRIT 20.3 % (35.0-45.0); HEMOGLOBIN 6.7 g/dl (12.0-16.0)
[2018-03-21 07:25] LABS: ANISOCYTOSIS 2+; HYPOCHROMASIA 1+; MICROCYTOSIS 1+; PLATELET ESTIMATE NORMAL
[2018-03-21] MEDS: calcium acetate 667mg (PhosLO) capsule PO SCH ×3 (08:00→18:00)
[2018-03-21] MEDS: vitamin B comp w/Vit. C tab 1 TAB TABLET PO SCH (08:00)
[2018-03-21] MEDS: atorvastatin 20mg tablet PO SCH (08:00)
[2018-03-21] MEDS: cinacalcet 30mg tablet PO SCH (08:00)
[2018-03-21] MEDS: folic acid 1mg tablet PO SCH (08:00)
[2018-03-21] MEDS: citalopram 20mg tablet PO SCH (08:00)
[2018-03-21] MEDS: labetalol 100mg tablet PO SCH ×2 (08:00→21:25)
[2018-03-21] MEDS: diltiazem CD 180mg cap (once-daily) PO SCH (08:00)
[2018-03-21] MEDS: heparin, porcine 5000 units/ml vial SQ SCH ×2 (08:00→20:00)
[2018-03-21] MEDS: levoTHYROXINE 75mcg tablet PO SCH (08:00)
[2018-03-21] MEDS ORDERED: aspirin 325mg tablet, delayed-release (Ecotrin) PO SCH (08:00)
[2018-03-21 08:56] LABS: OCCULT BLOOD STOOL NEGATIVE (Neg)
[2018-03-21 09:45] LABS: ABG BASE EXCESS 4.4 mmol/L (-2.0-3.0); ABG HCO3 29.4 mmol/L (22.0-26.0); ABG PCO2 (T) 47.9 mmHg (32.0-45.0); ABG PH (T) 7.408 (7.350-7.450); FCOHb 1.3 % (0.5-1.5); FMetHb 0.3 % (0.3-1.12); FO2Hb 92.5 % (94-100); PATIENT TEMPERATURE 37.8; RESPIRATORY RATE 16 b/min; RESPIRATORY RATE (OBSERVED) 25 b/min; TOTAL HEMOGLOBIN 7.6 G/dl (12.0-16.0)
[2018-03-21] MEDS ORDERED: vancomycin inj 1,250 MG in normal saline 250ml IV soln 250 ML IV PRN (11:50)
[2018-03-21] MEDS ORDERED: VANCOMYCIN LEVEL IV ONE (11:50)
[2018-03-21] MEDS: ALPRAZolam 0.5mg tablet PO SCH (12:41)
[2018-03-21] MEDS ORDERED: LIDOcaine 1% (10mg/ml) 2ml vial SQ ONE (14:45)
[2018-03-21] MEDS ORDERED: normal saline 1000ml 250 ML IV PRN (14:45)
[2018-03-21] MEDS ORDERED: epoetin 20,000 units/ml inj IV ONE (14:45)
[2018-03-21 17:00] LABS: MEAN CORPUSCULAR HEMOGLOBIN 32.1 PG (27.0-31.0); MEAN CORPUSCULAR HGB CONC 33.1 % (33.0-36.5); MEAN CORPUSCULAR VOLUME 97.2 FL (78-98); MEAN PLATELET VOLUME 8.2 FL (7.4-10.4); PLATELET COUNT 190 X10'3 (140-440); RED BLOOD COUNT 2.09 X10'6 (4.20-5.60); RED CELL DISTRIBUTION WIDTH 20.5 % (11.5-14.5); WHITE BLOOD COUNT 5.5 X10'3 (4.5-11.0)
[2018-03-21 17:03] LABS: HEMOGLOBIN 6.7 g/dl (12.0-16.0)
[2018-03-21 17:04] LABS: HEMATOCRIT 20.3 % (35.0-45.0)
[2018-03-21] MEDS: HYDROmorphone 1 mg/ml syringe IV PRN ×2 (19:01→23:44)
[2018-03-21] MEDS ORDERED: acetaminophen 120MG suppository, rectal RC PRN (20:10)
[2018-03-21] MEDS ORDERED: acetaminophen 650mg rectal suppository RC PRN (20:45)
[2018-03-21] MEDS: methylPREDNISolone sod succ/PF 40mg inj. IV SCH (21:24)
[2018-03-21 23:03] LABS: HEMATOCRIT 25.2 % (35.0-45.0); HEMOGLOBIN 8.4 g/dl (12.0-16.0); MEAN CORPUSCULAR HEMOGLOBIN 32.5 PG (27.0-31.0); MEAN CORPUSCULAR HGB CONC 33.5 % (33.0-36.5); MEAN CORPUSCULAR VOLUME 96.8 FL (78-98); MEAN PLATELET VOLUME 8.4 FL (7.4-10.4); PLATELET COUNT 197 X10'3 (140-440); WHITE BLOOD COUNT 12.5 X10'3 (4.5-11.0)
[2018-03-22 00:05] LABS: OCCULT BLOOD STOOL NEGATIVE (Neg)
[2018-03-22] MEDS: methylPREDNISolone sod succ/PF 40mg inj. IV SCH ×4 (02:14→21:40)
[2018-03-22 03:00] VITALS: BP 145/48
[2018-03-22] MEDS: VANCOMYCIN LEVEL IV SCH (03:00)
[2018-03-22] MEDS: HYDROmorphone 1 mg/ml syringe IV PRN ×3 (04:33→19:02)
[2018-03-22 05:56] LABS: BASOPHILS % (AUTO) 0 % (0-1); EOSINOPHILS % (AUTO) 0 % (0-6); HEMOGLOBIN 8.6 g/dl (12.0-16.0); LYMPHOCYTES # (AUTO) 0.4 X10'3 (1.1-4.8); LYMPHOCYTES % (AUTO) 2.6 % (21-51); MEAN CORPUSCULAR HEMOGLOBIN 32.6 PG (27.0-31.0); MEAN CORPUSCULAR VOLUME 98.5 FL (78-98); MEAN PLATELET VOLUME 8.8 FL (7.4-10.4); MONOCYTES # (AUTO) 0.4 X10'3 (0-0.9); MONOCYTES % (AUTO) 2.7 % (2-12); NEUTROPHILS # (AUTO) 13.5 X10'3 (1.8-7.7); NEUTROPHILS % (AUTO) 94.7 % (42-75); PLATELET COUNT 187 X10'3 (140-440); RED BLOOD COUNT 2.64 X10'6 (4.20-5.60); RED CELL DISTRIBUTION WIDTH 19.6 % (11.5-14.5); WHITE BLOOD COUNT 14.2 X10'3 (4.5-11.0)
[2018-03-22 06:00] VITALS: BP 160/60
[2018-03-22 06:03] LABS: ALANINE AMINOTRANSFERASE 20 U/L (12-78); ALBUMIN 2.3 G/DL (3.4-5.0); ALBUMIN/GLOBULIN RATIO 0.6 (1.1-1.5); ALKALINE PHOSPHATASE 65 IU/L (46-116); ANION GAP 7 (8-16); ASPARTATE AMINO TRANSFERASE 21 U/L (10-37); BILIRUBIN,TOTAL 0.4 MG/DL (0.1-1.0); BLOOD UREA NITROGEN 23 MG/DL (7-18); BUN/CREATININE RATIO 6.7 (6.6-38.0); CALCIUM 8.8 MG/DL (8.5-10.1); CHLORIDE 98 MMOL/L (99-107); CREATININE 3.44 MG/DL (0.40-0.90); GLUCOSE 132 MG/DL (70-104); MAGNESIUM 2.2 MG/DL (1.5-2.4); PHOSPHORUS 3.6 MG/DL (2.3-4.5); POTASSIUM 4.6 MMOL/L (3.5-5.1); SODIUM 136 MMOL/L (135-145); TOTAL CARBON DIOXIDE 31.1 MMOL/L (24-32); TOTAL PROTEIN 6.3 G/DL (6.4-8.2); VANCOMYCIN,RANDOM 14.8 UG/ML; eGFR 14 ML/MIN
[2018-03-22 07:16] LABS: ANISOCYTOSIS 2+; PLATELET ESTIMATE NORMAL; TOTAL CELLS COUNTED 100
[2018-03-22 07:56] LABS: C DIFF ANTIGEN POSITIVE (NEGATIVE); C DIFF SPECIMEN=DIARRHEA? ACCEPTABLE; C DIFFICILE TOXINS A&B POSITIVE (Neg)
[2018-03-22] MEDS: vitamin B comp w/Vit. C tab 1 TAB TABLET PO SCH (08:00)
[2018-03-22] MEDS: albuterol 2.5 MG/3 ML nebule NEB SCH ×5 (08:19→23:54)
[2018-03-22] MEDS: piperacillin-tazo 2.25gm/50ml 50 ML IV SCH ×2 (08:23→16:00)
[2018-03-22] MEDS: diltiazem CD 180mg cap (once-daily) PO SCH (08:23)
[2018-03-22] MEDS: cinacalcet 30mg tablet PO SCH (08:23)
[2018-03-22] MEDS: folic acid 1mg tablet PO SCH (08:23)
[2018-03-22] MEDS: atorvastatin 20mg tablet PO SCH (08:23)
[2018-03-22] MEDS: citalopram 20mg tablet PO SCH (08:24)
[2018-03-22] MEDS: calcium acetate 667mg (PhosLO) capsule PO SCH ×3 (08:24→21:39)
[2018-03-22] MEDS: hydrALAZINE 25 MG tablet PO SCH ×3 (08:24→16:00)
[2018-03-22] MEDS: levoTHYROXINE 75mcg tablet PO SCH (08:24)
[2018-03-22] MEDS: labetalol 100mg tablet PO SCH ×2 (08:24→21:40)
[2018-03-22] MEDS: ALPRAZolam 0.5mg tablet PO SCH (08:24)
[2018-03-22] MEDS: heparin, porcine 5000 units/ml vial SQ SCH ×2 (08:25→21:41)
[2018-03-22] MEDS ORDERED: vancomycin inj 1,250 MG in normal saline 250ml IV soln 250 ML IV ONE (09:30)
[2018-03-22 11:00] VITALS: BP 174/57
[2018-03-22] MEDS ORDERED: normal saline 1000ml 250 ML IV PRN (14:36)
[2018-03-22] MEDS ORDERED: LIDOcaine 1% (10mg/ml) 2ml vial SQ ONE (14:40)
[2018-03-22] MEDS ORDERED: epoetin 20,000 units/ml inj IV ONE (14:40)
[2018-03-22 15:00] VITALS: BP 133/63
[2018-03-22 19:00] VITALS: BP 156/68
[2018-03-22] MEDS: vancomycin 125mg/5ml ORAL solution 5ml UD bottle PO SCH (21:42)
[2018-03-22 23:00] VITALS: BP 158/90
[2018-03-23] VITALS (8 sets, daily range): BP systolic 127–185; BP diastolic 61–100
[2018-03-23] MEDS: vancomycin 125mg/5ml ORAL solution 5ml UD bottle PO SCH ×4 (02:00→21:40)
[2018-03-23] MEDS: VANCOMYCIN LEVEL IV SCH (03:00)
[2018-03-23] MEDS: piperacillin-tazo 2.25gm/50ml 50 ML IV SCH ×2 (03:05→09:37)
[2018-03-23] MEDS: hydrALAZINE 25 MG tablet PO SCH ×3 (03:06→16:18)
[2018-03-23] MEDS: methylPREDNISolone sod succ/PF 40mg inj. IV SCH ×4 (03:06→20:00)
[2018-03-23] MEDS: albuterol 2.5 MG/3 ML nebule NEB SCH ×6 (03:27→23:20)
[2018-03-23 05:57] LABS: BASOPHILS % (AUTO) 0 % (0-1); EOSINOPHILS % (AUTO) 0 % (0-6); HEMATOCRIT 25.8 % (35.0-45.0); HEMOGLOBIN 8.7 g/dl (12.0-16.0); LYMPHOCYTES # (AUTO) 0.5 X10'3 (1.1-4.8); MEAN CORPUSCULAR HGB CONC 33.6 % (33.0-36.5); MEAN CORPUSCULAR VOLUME 98.2 FL (78-98); MEAN PLATELET VOLUME 9.4 FL (7.4-10.4); MONOCYTES # (AUTO) 1.5 X10'3 (0-0.9); MONOCYTES % (AUTO) 8.7 % (2-12); NEUTROPHILS # (AUTO) 15.3 X10'3 (1.8-7.7); NEUTROPHILS % (AUTO) 88.3 % (42-75); PLATELET COUNT 206 X10'3 (140-440); RED BLOOD COUNT 2.63 X10'6 (4.20-5.60); RED CELL DISTRIBUTION WIDTH 19.5 % (11.5-14.5); WHITE BLOOD COUNT 17.4 X10'3 (4.5-11.0)
[2018-03-23 06:00] LABS: ALANINE AMINOTRANSFERASE 14 U/L (12-78); ALBUMIN 1.5 G/DL (3.4-5.0); ALBUMIN/GLOBULIN RATIO 0.3 (1.1-1.5); ALKALINE PHOSPHATASE 73 IU/L (46-116); ANION GAP 7 (8-16); ASPARTATE AMINO TRANSFERASE 25 U/L (10-37); BILIRUBIN,TOTAL 0.4 MG/DL (0.1-1.0); BLOOD UREA NITROGEN 23 MG/DL (7-18); BUN/CREATININE RATIO 8.9 (6.6-38.0); CALCIUM 8.9 MG/DL (8.5-10.1); CHLORIDE 98 MMOL/L (99-107); CREATININE 2.58 MG/DL (0.40-0.90); GLUCOSE 152 MG/DL (70-104); MAGNESIUM 1.9 MG/DL (1.5-2.4); PHOSPHORUS 2.2 MG/DL (2.3-4.5); POTASSIUM 4.2 MMOL/L (3.5-5.1); SODIUM 135 MMOL/L (135-145); TOTAL CARBON DIOXIDE 30.3 MMOL/L (24-32); TOTAL PROTEIN 6.3 G/DL (6.4-8.2); VANCOMYCIN,RANDOM 22.7 UG/ML; eGFR 19 ML/MIN
[2018-03-23 07:01] LABS: ANISOCYTOSIS 2+; PLATELET ESTIMATE NORMAL; POLYCHROMASIA 1+
[2018-03-23] MEDS: ALPRAZolam 0.5mg tablet PO SCH (09:21)
[2018-03-23] MEDS ORDERED: ASPI81TA52 PO (09:21)
[2018-03-23] MEDS: cinacalcet 30mg tablet PO SCH (09:22)
[2018-03-23] MEDS: calcium acetate 667mg (PhosLO) capsule PO SCH ×3 (09:22→21:40)
[2018-03-23] MEDS: vitamin B comp w/Vit. C tab 1 TAB TABLET PO SCH (09:22)
[2018-03-23] MEDS: aspirin 81mg tablet.DR PO SCH (09:23)
[2018-03-23] MEDS: citalopram 20mg tablet PO SCH (09:23)
[2018-03-23] MEDS: diltiazem CD 180mg cap (once-daily) PO SCH (09:23)
[2018-03-23] MEDS: levoTHYROXINE 75mcg tablet PO SCH (09:23)
[2018-03-23] MEDS: folic acid 1mg tablet PO SCH (09:25)
[2018-03-23] MEDS: atorvastatin 20mg tablet PO SCH (09:25)
[2018-03-23] MEDS: labetalol 100mg tablet PO SCH ×3 (09:25→21:40)
[2018-03-23] MEDS: heparin, porcine 5000 units/ml vial SQ SCH ×2 (09:26→21:41)
[2018-03-23] MEDS ORDERED: LEVO250T58 PO (09:44)
[2018-03-23] MEDS ORDERED: LACTC PO (09:44)
[2018-03-23] MEDS ORDERED: Nepro PO (09:44)
[2018-03-23] MEDS ORDERED: LABE100T5 PO (09:53)
[2018-03-23] MEDS ORDERED: ACET325T55 PO (09:53)
[2018-03-23] MEDS ORDERED: HYDR-3965 PO (09:57)
[2018-03-23] MEDS ORDERED: POLY17PO2 PO (09:57)
[2018-03-23 10:09] LABS: HBSAG SCREEN Negative (Negative)
[2018-03-23] MEDS: acetaminophen 325mg tablet PO PRN ×2 (13:32→22:41)
[2018-03-24] VITALS (7 sets, daily range): BP systolic 156–196; BP diastolic 58–132
[2018-03-24] MEDS: hydrALAZINE 25 MG tablet PO SCH ×3 (01:35→15:28)
[2018-03-24] MEDS: vancomycin 125mg/5ml ORAL solution 5ml UD bottle PO SCH ×4 (01:35→21:33)
[2018-03-24] MEDS: VANCOMYCIN LEVEL IV SCH (03:00)
[2018-03-24] MEDS: albuterol 2.5 MG/3 ML nebule NEB SCH ×6 (03:09→23:49)
[2018-03-24 05:50] LABS: BASOPHILS % (AUTO) 0 % (0-1); EOSINOPHILS # (AUTO) 0.2 X10'3 (0-0.9); EOSINOPHILS % (AUTO) 1.5 % (0-6); HEMATOCRIT 25.7 % (35.0-45.0); HEMOGLOBIN 8.4 g/dl (12.0-16.0); LYMPHOCYTES # (AUTO) 0.8 X10'3 (1.1-4.8); LYMPHOCYTES % (AUTO) 5.2 % (21-51); MEAN CORPUSCULAR HEMOGLOBIN 32.5 PG (27.0-31.0); MEAN CORPUSCULAR HGB CONC 32.7 % (33.0-36.5); MEAN CORPUSCULAR VOLUME 99.2 FL (78-98); MEAN PLATELET VOLUME 9.2 FL (7.4-10.4); MONOCYTES # (AUTO) 0.8 X10'3 (0-0.9); MONOCYTES % (AUTO) 5.1 % (2-12); NEUTROPHILS # (AUTO) 14.3 X10'3 (1.8-7.7); NEUTROPHILS % (AUTO) 88.2 % (42-75); PLATELET COUNT 214 X10'3 (140-440); RED BLOOD COUNT 2.59 X10'6 (4.20-5.60); RED CELL DISTRIBUTION WIDTH 19.5 % (11.5-14.5); WHITE BLOOD COUNT 16.3 X10'3 (4.5-11.0)
[2018-03-24 06:05] LABS: ALANINE AMINOTRANSFERASE 17 U/L (12-78); ALBUMIN 2.4 G/DL (3.4-5.0); ALBUMIN/GLOBULIN RATIO 0.6 (1.1-1.5); ALKALINE PHOSPHATASE 66 IU/L (46-116); ANION GAP 6 (8-16); ASPARTATE AMINO TRANSFERASE 12 U/L (10-37); BILIRUBIN,TOTAL 0.6 MG/DL (0.1-1.0); BLOOD UREA NITROGEN 42 MG/DL (7-18); BUN/CREATININE RATIO 10.4 (6.6-38.0); CALCIUM 10.1 MG/DL (8.5-10.1); CHLORIDE 96 MMOL/L (99-107); CREATININE 4.04 MG/DL (0.40-0.90); GLUCOSE 146 MG/DL (70-104); MAGNESIUM 2.2 MG/DL (1.5-2.4); PHOSPHORUS 2.7 MG/DL (2.3-4.5); POTASSIUM 4.6 MMOL/L (3.5-5.1); SODIUM 131 MMOL/L (135-145); TOTAL CARBON DIOXIDE 28.6 MMOL/L (24-32); TOTAL PROTEIN 6.3 G/DL (6.4-8.2); VANCOMYCIN,RANDOM 20.3 UG/ML; eGFR 11 ML/MIN
[2018-03-24 07:35] LABS: ANISOCYTOSIS 2+; PLATELET ESTIMATE NORMAL
[2018-03-24] MEDS ORDERED: azithromycin 250mg tablet PO SCH (08:00)
[2018-03-24] MEDS ORDERED: albumin (human) 25% 100ml IV 100 ML IV PRN (08:45)
[2018-03-24] MEDS ORDERED: heparin 1,000 units/ml 10ml inj IV ONE (08:45)
[2018-03-24] MEDS ORDERED: heparin 1,000unit/ml 10ml vial 10 ML IV ONE (08:45)
[2018-03-24] MEDS ORDERED: epoetin 20,000 units/ml inj IV ONE (08:45)
[2018-03-24] MEDS: aspirin 81mg tablet.DR PO SCH (08:49)
[2018-03-24] MEDS: levoTHYROXINE 75mcg tablet PO SCH (08:50)
[2018-03-24] MEDS: diltiazem CD 180mg cap (once-daily) PO SCH (08:51)
[2018-03-24] MEDS: labetalol 100mg tablet PO SCH ×3 (08:51→21:32)
[2018-03-24] MEDS: folic acid 1mg tablet PO SCH (08:52)
[2018-03-24] MEDS: citalopram 20mg tablet PO SCH (08:52)
[2018-03-24] MEDS: atorvastatin 20mg tablet PO SCH (08:53)
[2018-03-24] MEDS: vitamin B comp w/Vit. C tab 1 TAB TABLET PO SCH (08:53)
[2018-03-24] MEDS: cinacalcet 30mg tablet PO SCH (08:54)
[2018-03-24] MEDS: ALPRAZolam 0.5mg tablet PO SCH (08:54)
[2018-03-24] MEDS: heparin, porcine 5000 units/ml vial SQ SCH ×2 (08:55→21:33)
[2018-03-24] MEDS: calcium acetate 667mg (PhosLO) capsule PO SCH ×3 (08:59→19:55)
[2018-03-24] MEDS ORDERED: LIDOcaine 1% (10mg/ml) 2ml vial SQ ONE (09:20)
[2018-03-24] MEDS: lactobacillus rhamnosus 10,000 MMU CELLS/CAPSULE PO SCH (21:32)
[2018-03-25] MEDS: hydrALAZINE 25 MG tablet PO SCH ×3 (02:27→16:59)
[2018-03-25] MEDS: vancomycin 125mg/5ml ORAL solution 5ml UD bottle PO SCH ×4 (02:27→20:00)
[2018-03-25 03:00] VITALS: BP 148/63
[2018-03-25] MEDS: albuterol 2.5 MG/3 ML nebule NEB SCH ×6 (03:15→23:38)
[2018-03-25 06:00] VITALS: BP 164/99
[2018-03-25 06:16] LABS: ALANINE AMINOTRANSFERASE 18 U/L (12-78); ALBUMIN 2.5 G/DL (3.4-5.0); ALBUMIN/GLOBULIN RATIO 0.7 (1.1-1.5); ALKALINE PHOSPHATASE 77 IU/L (46-116); ANION GAP 8 (8-16); ASPARTATE AMINO TRANSFERASE 18 U/L (10-37); BILIRUBIN,TOTAL 0.7 MG/DL (0.1-1.0); BLOOD UREA NITROGEN 26 MG/DL (7-18); BUN/CREATININE RATIO 7.6 (6.6-38.0); CALCIUM 10.2 MG/DL (8.5-10.1); CHLORIDE 99 MMOL/L (99-107); CREATININE 3.44 MG/DL (0.40-0.90); GLUCOSE 100 MG/DL (70-104); POTASSIUM 3.9 MMOL/L (3.5-5.1); SODIUM 135 MMOL/L (135-145); TOTAL CARBON DIOXIDE 28.5 MMOL/L (24-32); TOTAL PROTEIN 6.3 G/DL (6.4-8.2); eGFR 14 ML/MIN
[2018-03-25 06:23] LABS: BASOPHILS % (AUTO) 0 % (0-1); EOSINOPHILS # (AUTO) 0.1 X10'3 (0-0.9); EOSINOPHILS % (AUTO) 0.4 % (0-6); HEMATOCRIT 28.9 % (35.0-45.0); HEMOGLOBIN 9.7 g/dl (12.0-16.0); LYMPHOCYTES # (AUTO) 1.5 X10'3 (1.1-4.8); LYMPHOCYTES % (AUTO) 9.8 % (21-51); MEAN CORPUSCULAR HEMOGLOBIN 33.2 PG (27.0-31.0); MEAN CORPUSCULAR HGB CONC 33.7 % (33.0-36.5); MEAN CORPUSCULAR VOLUME 98.4 FL (78-98); MEAN PLATELET VOLUME 9.4 FL (7.4-10.4); MONOCYTES # (AUTO) 1.2 X10'3 (0-0.9); MONOCYTES % (AUTO) 7.7 % (2-12); NEUTROPHILS # (AUTO) 12.9 X10'3 (1.8-7.7); NEUTROPHILS % (AUTO) 82.1 % (42-75); PLATELET COUNT 211 X10'3 (140-440); RED BLOOD COUNT 2.93 X10'6 (4.20-5.60); RED CELL DISTRIBUTION WIDTH 18.2 % (11.5-14.5); WHITE BLOOD COUNT 15.7 X10'3 (4.5-11.0)
[2018-03-25 06:25] LABS: PHOSPHORUS 1.2 MG/DL (2.3-4.5)
[2018-03-25] MEDS: aspirin 81mg tablet.DR PO SCH (08:43)
[2018-03-25] MEDS: vitamin B comp w/Vit. C tab 1 TAB TABLET PO SCH (08:43)
[2018-03-25] MEDS: labetalol 100mg tablet PO SCH ×3 (08:43→20:00)
[2018-03-25] MEDS: citalopram 20mg tablet PO SCH (08:43)
[2018-03-25] MEDS: levoTHYROXINE 75mcg tablet PO SCH (08:44)
[2018-03-25] MEDS: calcium acetate 667mg (PhosLO) capsule PO SCH (08:44)
[2018-03-25] MEDS: heparin, porcine 5000 units/ml vial SQ SCH ×2 (08:44→20:01)
[2018-03-25] MEDS: atorvastatin 20mg tablet PO SCH (08:44)
[2018-03-25] MEDS: diltiazem CD 180mg cap (once-daily) PO SCH (08:44)
[2018-03-25] MEDS: ALPRAZolam 0.5mg tablet PO SCH (08:45)
[2018-03-25] MEDS: cinacalcet 30mg tablet PO SCH (08:45)
[2018-03-25] MEDS: folic acid 1mg tablet PO SCH (08:45)
[2018-03-25] MEDS: acetaminophen 325mg tablet PO PRN (08:45)
[2018-03-25] MEDS: lactobacillus rhamnosus 10,000 MMU CELLS/CAPSULE PO SCH ×2 (08:45→20:00)
[2018-03-25 11:00] VITALS: BP 159/81
[2018-03-25] MEDS: HYDROmorphone 2mg tablet PO PRN (12:33)
[2018-03-25 17:19] VITALS: BP 171/75
[2018-03-25 19:00] VITALS: BP 189/71
[2018-03-25 23:00] VITALS: BP 162/72
[2018-03-26] VITALS (7 sets, daily range): BP systolic 150–185; BP diastolic 62–109
[2018-03-26] MEDS: hydrALAZINE 25 MG tablet PO SCH ×3 (01:05→16:27)
[2018-03-26] MEDS: vancomycin 125mg/5ml ORAL solution 5ml UD bottle PO SCH ×4 (01:05→21:10)
[2018-03-26] MEDS ORDERED: hydrALAZINE 20mg/ml inj. IV ONE (03:25)
[2018-03-26] MEDS: albuterol 2.5 MG/3 ML nebule NEB SCH ×6 (03:54→23:07)
[2018-03-26] MEDS ORDERED: heparin 1,000unit/ml 10ml vial 10 ML IV ONE (06:57)
[2018-03-26] MEDS ORDERED: epoetin 20,000 units/ml inj IV ONE (07:00)
[2018-03-26] MEDS ORDERED: albumin (human) 25% 100ml IV 100 ML IV PRN (07:00)
[2018-03-26] MEDS ORDERED: heparin 1,000 units/ml 10ml inj IV ONE (07:00)
[2018-03-26] MEDS: vitamin B comp w/Vit. C tab 1 TAB TABLET PO SCH (07:59)
[2018-03-26] MEDS: levoTHYROXINE 75mcg tablet PO SCH (07:59)
[2018-03-26] MEDS: aspirin 81mg tablet.DR PO SCH (07:59)
[2018-03-26] MEDS: cinacalcet 30mg tablet PO SCH (08:00)
[2018-03-26] MEDS: lactobacillus rhamnosus 10,000 MMU CELLS/CAPSULE PO SCH ×2 (08:00→21:09)
[2018-03-26] MEDS: folic acid 1mg tablet PO SCH (08:00)
[2018-03-26] MEDS: labetalol 100mg tablet PO SCH ×3 (08:00→21:09)
[2018-03-26] MEDS: heparin, porcine 5000 units/ml vial SQ SCH ×2 (08:00→21:10)
[2018-03-26] MEDS: atorvastatin 20mg tablet PO SCH (08:00)
[2018-03-26] MEDS: diltiazem CD 180mg cap (once-daily) PO SCH (08:02)
[2018-03-26] MEDS: citalopram 20mg tablet PO SCH (08:03)
[2018-03-26] MEDS: HYDROmorphone 2mg tablet PO PRN (08:03)
[2018-03-26] MEDS: ALPRAZolam 0.5mg tablet PO SCH (08:13)
[2018-03-26 09:56] LABS: HEMATOCRIT 25.8 % (35.0-45.0); HEMOGLOBIN 8.5 g/dl (12.0-16.0); MEAN CORPUSCULAR HEMOGLOBIN 32.5 PG (27.0-31.0); MEAN CORPUSCULAR HGB CONC 33.1 % (33.0-36.5); MEAN CORPUSCULAR VOLUME 98.3 FL (78-98); PLATELET COUNT 214 X10'3 (140-440); RED BLOOD COUNT 2.62 X10'6 (4.20-5.60); RED CELL DISTRIBUTION WIDTH 18.4 % (11.5-14.5)
[2018-03-27] MEDS: hydrALAZINE 25 MG tablet PO SCH ×4 (00:04→23:34)
[2018-03-27] MEDS: vancomycin 125mg/5ml ORAL solution 5ml UD bottle PO SCH ×4 (02:07→19:32)
[2018-03-27 03:00] VITALS: BP 157/71
[2018-03-27] MEDS: albuterol 2.5 MG/3 ML nebule NEB SCH ×6 (03:23→23:02)
[2018-03-27] MEDS: HYDROmorphone 2mg tablet PO PRN ×4 (05:50→23:35)
[2018-03-27 06:00] VITALS: BP 182/71
[2018-03-27] MEDS: heparin, porcine 5000 units/ml vial SQ SCH ×2 (07:18→19:33)
[2018-03-27] MEDS: atorvastatin 20mg tablet PO SCH (07:18)
[2018-03-27] MEDS: cinacalcet 30mg tablet PO SCH (07:19)
[2018-03-27] MEDS: aspirin 81mg tablet.DR PO SCH (07:19)
[2018-03-27] MEDS: levoTHYROXINE 75mcg tablet PO SCH (07:19)
[2018-03-27] MEDS: citalopram 20mg tablet PO SCH (07:19)
[2018-03-27] MEDS: vitamin B comp w/Vit. C tab 1 TAB TABLET PO SCH (07:19)
[2018-03-27] MEDS: folic acid 1mg tablet PO SCH (07:19)
[2018-03-27] MEDS: labetalol 100mg tablet PO SCH ×3 (07:19→21:00)
[2018-03-27] MEDS: ALPRAZolam 0.5mg tablet PO SCH (07:19)
[2018-03-27] MEDS: diltiazem CD 180mg cap (once-daily) PO SCH (07:19)
[2018-03-27] MEDS: lactobacillus rhamnosus 10,000 MMU CELLS/CAPSULE PO SCH ×2 (07:23→19:34)
[2018-03-27 11:00] VITALS: BP 160/70
[2018-03-27 15:00] VITALS: BP 145/75
[2018-03-27 18:00] VITALS: BP 155/77
[2018-03-27 23:00] VITALS: BP 159/60
[2018-03-28] MEDS: vancomycin 125mg/5ml ORAL solution 5ml UD bottle PO SCH ×4 (02:48→20:13)
[2018-03-28] MEDS: albuterol 2.5 MG/3 ML nebule NEB SCH ×6 (02:53→23:18)
[2018-03-28 03:00] VITALS: BP 143/68
[2018-03-28 06:00] VITALS: BP 134/77
[2018-03-28] MEDS: diltiazem CD 180mg cap (once-daily) PO SCH (07:14)
[2018-03-28] MEDS: aspirin 81mg tablet.DR PO SCH (07:14)
[2018-03-28] MEDS: ALPRAZolam 0.5mg tablet PO SCH (07:14)
[2018-03-28] MEDS: vitamin B comp w/Vit. C tab 1 TAB TABLET PO SCH (07:14)
[2018-03-28] MEDS: folic acid 1mg tablet PO SCH (07:15)
[2018-03-28] MEDS: hydrALAZINE 25 MG tablet PO SCH ×2 (07:15→16:24)
[2018-03-28] MEDS: citalopram 20mg tablet PO SCH (07:15)
[2018-03-28] MEDS: levoTHYROXINE 75mcg tablet PO SCH (07:15)
[2018-03-28] MEDS: atorvastatin 20mg tablet PO SCH (07:15)
[2018-03-28] MEDS: cinacalcet 30mg tablet PO SCH (07:15)
[2018-03-28] MEDS: lactobacillus rhamnosus 10,000 MMU CELLS/CAPSULE PO SCH ×2 (07:15→20:13)
[2018-03-28] MEDS: labetalol 100mg tablet PO SCH ×3 (07:15→20:13)
[2018-03-28] MEDS: heparin, porcine 5000 units/ml vial SQ SCH ×2 (07:15→20:13)
[2018-03-28 11:00] VITALS: BP_SYST 147; BP_SYST 99; BP_DIAS 57; BP_DIAS 97
[2018-03-28 14:08] LABS: BASOPHILS % (AUTO) 0.4 % (0-1); EOSINOPHILS # (AUTO) 0.7 X10'3 (0-0.9); EOSINOPHILS % (AUTO) 6.2 % (0-6); HEMATOCRIT 25.4 % (35.0-45.0); HEMOGLOBIN 8.3 g/dl (12.0-16.0); LYMPHOCYTES # (AUTO) 1.4 X10'3 (1.1-4.8); LYMPHOCYTES % (AUTO) 12.3 % (21-51); MEAN CORPUSCULAR HEMOGLOBIN 31.8 PG (27.0-31.0); MEAN CORPUSCULAR HGB CONC 32.6 % (33.0-36.5); MEAN CORPUSCULAR VOLUME 97.5 FL (78-98); MEAN PLATELET VOLUME 9.1 FL (7.4-10.4); MONOCYTES # (AUTO) 0.9 X10'3 (0-0.9); MONOCYTES % (AUTO) 7.6 % (2-12); NEUTROPHILS # (AUTO) 8.3 X10'3 (1.8-7.7); NEUTROPHILS % (AUTO) 73.5 % (42-75); PLATELET COUNT 237 X10'3 (140-440); RED BLOOD COUNT 2.61 X10'6 (4.20-5.60); RED CELL DISTRIBUTION WIDTH 19.3 % (11.5-14.5); WHITE BLOOD COUNT 11.3 X10'3 (4.5-11.0)
[2018-03-28 14:24] LABS: ALBUMIN 2.2 G/DL (3.4-5.0); ANION GAP 10 (8-16); BLOOD UREA NITROGEN 36 MG/DL (7-18); BUN/CREATININE RATIO 6.4 (6.6-38.0); CALCIUM 8.5 MG/DL (8.5-10.1); CHLORIDE 94 MMOL/L (99-107); CREATININE 5.64 MG/DL (0.40-0.90); GLUCOSE 123 MG/DL (70-104); MAGNESIUM 1.8 MG/DL (1.5-2.4); PHOSPHORUS 2.8 MG/DL (2.3-4.5); POTASSIUM 3.7 MMOL/L (3.5-5.1); SODIUM 131 MMOL/L (135-145); TOTAL CARBON DIOXIDE 27.3 MMOL/L (24-32); eGFR 8 ML/MIN
[2018-03-28 14:37] LABS: PLATELET ESTIMATE NORMAL
[2018-03-28 14:39] LABS: ANISOCYTOSIS 2+; POLYCHROMASIA 1+; TARGET CELLS 1+
[2018-03-28 15:00] VITALS: BP 151/63
[2018-03-28] MEDS: HYDROmorphone 2mg tablet PO PRN ×2 (16:03→20:14)
[2018-03-28 19:00] VITALS: BP 159/74
[2018-03-28 23:00] VITALS: BP 159/78
[2018-03-29] MEDS: hydrALAZINE 25 MG tablet PO SCH ×3 (01:30→16:16)
[2018-03-29] MEDS: vancomycin 125mg/5ml ORAL solution 5ml UD bottle PO SCH ×4 (01:30→19:52)
[2018-03-29] MEDS: HYDROmorphone 2mg tablet PO PRN ×3 (01:30→19:53)
[2018-03-29] MEDS: albuterol 2.5 MG/3 ML nebule NEB SCH ×6 (02:56→23:17)
[2018-03-29 02:57] VITALS: BP 143/62
[2018-03-29 06:00] VITALS: BP 150/65
[2018-03-29 06:11] LABS: BASOPHILS # (AUTO) 0.1 X10'3 (0-0.2); BASOPHILS % (AUTO) 0.5 % (0-1); EOSINOPHILS # (AUTO) 0.8 X10'3 (0-0.9); EOSINOPHILS % (AUTO) 5.9 % (0-6); HEMATOCRIT 24.8 % (35.0-45.0); HEMOGLOBIN 8.3 g/dl (12.0-16.0); LYMPHOCYTES # (AUTO) 1.7 X10'3 (1.1-4.8); MEAN CORPUSCULAR HEMOGLOBIN 32.7 PG (27.0-31.0); MEAN CORPUSCULAR HGB CONC 33.6 % (33.0-36.5); MEAN CORPUSCULAR VOLUME 97.1 FL (78-98); MEAN PLATELET VOLUME 8.8 FL (7.4-10.4); MONOCYTES # (AUTO) 1.2 X10'3 (0-0.9); MONOCYTES % (AUTO) 8.7 % (2-12); NEUTROPHILS # (AUTO) 10.1 X10'3 (1.8-7.7); NEUTROPHILS % (AUTO) 72.9 % (42-75); PLATELET COUNT 235 X10'3 (140-440); RED BLOOD COUNT 2.55 X10'6 (4.20-5.60); RED CELL DISTRIBUTION WIDTH 18.6 % (11.5-14.5); WHITE BLOOD COUNT 13.8 X10'3 (4.5-11.0)
[2018-03-29 06:24] LABS: ALBUMIN 2.3 G/DL (3.4-5.0); ANION GAP 10 (8-16); BLOOD UREA NITROGEN 40 MG/DL (7-18); CALCIUM 8.2 MG/DL (8.5-10.1); CHLORIDE 93 MMOL/L (99-107); CREATININE 6.69 MG/DL (0.40-0.90); GLUCOSE 78 MG/DL (70-104); MAGNESIUM 1.7 MG/DL (1.5-2.4); PHOSPHORUS 3.1 MG/DL (2.3-4.5); POTASSIUM 4.2 MMOL/L (3.5-5.1); SODIUM 129 MMOL/L (135-145); TOTAL CARBON DIOXIDE 25.7 MMOL/L (24-32); eGFR 6 ML/MIN
[2018-03-29 06:57] LABS: ANISOCYTOSIS 2+; PLATELET ESTIMATE NORMAL
[2018-03-29 06:58] LABS: HYPOCHROMASIA 1+
[2018-03-29] MEDS: levoTHYROXINE 75mcg tablet PO SCH (08:15)
[2018-03-29] MEDS: citalopram 20mg tablet PO SCH (08:15)
[2018-03-29] MEDS: vitamin B comp w/Vit. C tab 1 TAB TABLET PO SCH (08:15)
[2018-03-29] MEDS: cinacalcet 30mg tablet PO SCH (08:15)
[2018-03-29] MEDS: diltiazem CD 180mg cap (once-daily) PO SCH (08:15)
[2018-03-29] MEDS: labetalol 100mg tablet PO SCH ×3 (08:16→21:00)
[2018-03-29] MEDS: lactobacillus rhamnosus 10,000 MMU CELLS/CAPSULE PO SCH ×2 (08:16→19:52)
[2018-03-29] MEDS: aspirin 81mg tablet.DR PO SCH (08:16)
[2018-03-29] MEDS: folic acid 1mg tablet PO SCH (08:16)
[2018-03-29] MEDS: atorvastatin 20mg tablet PO SCH (08:17)
[2018-03-29] MEDS: ALPRAZolam 0.5mg tablet PO SCH (08:17)
[2018-03-29] MEDS: heparin, porcine 5000 units/ml vial SQ SCH ×2 (08:17→19:53)
[2018-03-29] MEDS ORDERED: epoetin 20,000 units/ml inj IV ONE (08:30)
[2018-03-29] MEDS ORDERED: LIDOcaine 1% (10mg/ml) 2ml vial SQ ONE (08:30)
[2018-03-29] MEDS ORDERED: heparin 1,000 units/ml 10ml inj IV ONE (08:30)
[2018-03-29] MEDS ORDERED: albumin (human) 25% 100ml IV 100 ML IV PRN (08:30)
[2018-03-29 15:00] VITALS: BP 155/62
[2018-03-29 19:00] VITALS: BP 157/71
[2018-03-29 23:00] VITALS: BP 159/69
[2018-03-30] MEDS: hydrALAZINE 25 MG tablet PO SCH ×3 (00:35→16:44)
[2018-03-30] MEDS: HYDROmorphone 2mg tablet PO PRN ×3 (01:55→17:07)
[2018-03-30] MEDS: vancomycin 125mg/5ml ORAL solution 5ml UD bottle PO SCH ×4 (01:55→21:46)
[2018-03-30 02:53] VITALS: BP 132/56
[2018-03-30] MEDS: albuterol 2.5 MG/3 ML nebule NEB SCH ×6 (03:16→23:13)
[2018-03-30 05:56] LABS: BASOPHILS % (AUTO) 0.2 % (0-1); EOSINOPHILS # (AUTO) 0.6 X10'3 (0-0.9); EOSINOPHILS % (AUTO) 4.6 % (0-6); HEMATOCRIT 23.6 % (35.0-45.0); LYMPHOCYTES # (AUTO) 1.5 X10'3 (1.1-4.8); LYMPHOCYTES % (AUTO) 10.3 % (21-51); MEAN CORPUSCULAR HEMOGLOBIN 32.9 PG (27.0-31.0); MEAN CORPUSCULAR HGB CONC 33.9 % (33.0-36.5); MEAN CORPUSCULAR VOLUME 97.1 FL (78-98); MEAN PLATELET VOLUME 9.1 FL (7.4-10.4); MONOCYTES # (AUTO) 1.3 X10'3 (0-0.9); NEUTROPHILS # (AUTO) 10.7 X10'3 (1.8-7.7); NEUTROPHILS % (AUTO) 75.9 % (42-75); PLATELET COUNT 241 X10'3 (140-440); RED BLOOD COUNT 2.43 X10'6 (4.20-5.60); RED CELL DISTRIBUTION WIDTH 19.4 % (11.5-14.5); WHITE BLOOD COUNT 14.1 X10'3 (4.5-11.0)
[2018-03-30 06:00] VITALS: BP 152/65
[2018-03-30 06:05] LABS: ALBUMIN 2.2 G/DL (3.4-5.0); ANION GAP 7 (8-16); BLOOD UREA NITROGEN 23 MG/DL (7-18); BUN/CREATININE RATIO 5.4 (6.6-38.0); CHLORIDE 97 MMOL/L (99-107); CREATININE 4.23 MG/DL (0.40-0.90); GLUCOSE 86 MG/DL (70-104); MAGNESIUM 1.7 MG/DL (1.5-2.4); PHOSPHORUS 3.3 MG/DL (2.3-4.5); SODIUM 131 MMOL/L (135-145); TOTAL CARBON DIOXIDE 27.3 MMOL/L (24-32); eGFR 11 ML/MIN
[2018-03-30 06:09] LABS: POTASSIUM 4.5 MMOL/L (3.5-5.1)
[2018-03-30 07:59] LABS: ANISOCYTOSIS 2+; PLATELET ESTIMATE NORMAL
[2018-03-30] MEDS: levoTHYROXINE 75mcg tablet PO SCH (08:33)
[2018-03-30] MEDS: vitamin B comp w/Vit. C tab 1 TAB TABLET PO SCH (08:33)
[2018-03-30] MEDS: heparin, porcine 5000 units/ml vial SQ SCH ×2 (08:34→21:47)
[2018-03-30] MEDS: diltiazem CD 180mg cap (once-daily) PO SCH (08:35)
[2018-03-30] MEDS: lactobacillus rhamnosus 10,000 MMU CELLS/CAPSULE PO SCH ×2 (08:35→21:46)
[2018-03-30] MEDS: ALPRAZolam 0.5mg tablet PO SCH (08:35)
[2018-03-30] MEDS: atorvastatin 20mg tablet PO SCH (08:35)
[2018-03-30] MEDS: citalopram 20mg tablet PO SCH (08:35)
[2018-03-30] MEDS: folic acid 1mg tablet PO SCH (08:35)
[2018-03-30] MEDS: labetalol 100mg tablet PO SCH ×3 (08:35→21:46)
[2018-03-30] MEDS: aspirin 81mg tablet.DR PO SCH (08:36)
[2018-03-30] MEDS: cinacalcet 30mg tablet PO SCH (08:39)
[2018-03-30 11:00] VITALS: BP 160/68
[2018-03-30 15:00] VITALS: BP 151/63
[2018-03-30 19:00] VITALS: BP 146/63
[2018-03-30 23:00] VITALS: BP 140/80
[2018-03-31] VITALS (7 sets, daily range): BP systolic 126–168; BP diastolic 49–89
[2018-03-31] MEDS: hydrALAZINE 25 MG tablet PO SCH ×3 (00:23→15:43)
[2018-03-31] MEDS: vancomycin 125mg/5ml ORAL solution 5ml UD bottle PO SCH ×4 (02:11→20:11)
[2018-03-31] MEDS: albuterol 2.5 MG/3 ML nebule NEB SCH ×6 (02:56→23:27)
[2018-03-31 05:49] LABS: BASOPHILS % (AUTO) 0.2 % (0-1); EOSINOPHILS # (AUTO) 0.7 X10'3 (0-0.9); EOSINOPHILS % (AUTO) 4.6 % (0-6); HEMATOCRIT 22.2 % (35.0-45.0); HEMOGLOBIN 7.7 g/dl (12.0-16.0); LYMPHOCYTES # (AUTO) 1.1 X10'3 (1.1-4.8); LYMPHOCYTES % (AUTO) 7.4 % (21-51); MEAN CORPUSCULAR HEMOGLOBIN 33.9 PG (27.0-31.0); MEAN CORPUSCULAR HGB CONC 34.9 % (33.0-36.5); MEAN PLATELET VOLUME 8.6 FL (7.4-10.4); MONOCYTES % (AUTO) 6.9 % (2-12); NEUTROPHILS % (AUTO) 80.9 % (42-75); PLATELET COUNT 225 X10'3 (140-440); RED BLOOD COUNT 2.29 X10'6 (4.20-5.60); RED CELL DISTRIBUTION WIDTH 18.6 % (11.5-14.5); WHITE BLOOD COUNT 14.8 X10'3 (4.5-11.0)
[2018-03-31 06:11] LABS: ALBUMIN 2.1 G/DL (3.4-5.0); ANION GAP 9 (8-16); BLOOD UREA NITROGEN 35 MG/DL (7-18); BUN/CREATININE RATIO 6.3 (6.6-38.0); CALCIUM 7.8 MG/DL (8.5-10.1); CHLORIDE 93 MMOL/L (99-107); CREATININE 5.59 MG/DL (0.40-0.90); GLUCOSE 91 MG/DL (70-104); MAGNESIUM 1.6 MG/DL (1.5-2.4); PHOSPHORUS 4.1 MG/DL (2.3-4.5); POTASSIUM 4.7 MMOL/L (3.5-5.1); SODIUM 128 MMOL/L (135-145); TOTAL CARBON DIOXIDE 26.5 MMOL/L (24-32); eGFR 8 ML/MIN
[2018-03-31 06:43] LABS: ANISOCYTOSIS 2+; PLATELET ESTIMATE NORMAL
[2018-03-31] MEDS: atorvastatin 20mg tablet PO SCH (08:24)
[2018-03-31] MEDS: folic acid 1mg tablet PO SCH (08:25)
[2018-03-31] MEDS: ALPRAZolam 0.5mg tablet PO SCH (08:25)
[2018-03-31] MEDS: aspirin 81mg tablet.DR PO SCH (08:25)
[2018-03-31] MEDS: lactobacillus rhamnosus 10,000 MMU CELLS/CAPSULE PO SCH ×2 (08:25→20:10)
[2018-03-31] MEDS: levoTHYROXINE 75mcg tablet PO SCH (08:26)
[2018-03-31] MEDS: labetalol 100mg tablet PO SCH ×3 (08:26→20:10)
[2018-03-31] MEDS: citalopram 20mg tablet PO SCH (08:26)
[2018-03-31] MEDS: diltiazem CD 180mg cap (once-daily) PO SCH (08:26)
[2018-03-31] MEDS: cinacalcet 30mg tablet PO SCH (08:27)
[2018-03-31] MEDS: heparin, porcine 5000 units/ml vial SQ SCH ×2 (08:28→20:10)
[2018-03-31] MEDS: HYDROmorphone 2mg tablet PO PRN ×2 (08:39→15:48)
[2018-03-31] MEDS ORDERED: heparin 1,000unit/ml 10ml vial 10 ML IV ONE (08:46)
[2018-03-31] MEDS ORDERED: albumin (human) 25% 100ml IV 100 ML IV PRN (08:50)
[2018-03-31] MEDS ORDERED: epoetin 20,000 units/ml inj IV ONE (08:50)
[2018-03-31] MEDS ORDERED: heparin 1,000 units/ml 10ml inj IV ONE (08:50)
[2018-03-31] MEDS: vitamin B comp w/Vit. C tab 1 TAB TABLET PO SCH (09:10)
[2018-03-31] MEDS ORDERED: LIDOcaine 1% (10mg/ml) 2ml vial SQ ONE (10:00)
[2018-03-31 10:35] LABS: % IRON SATURATION 19 % (11-46); IRON 30 UG/DL (49-151); TOTAL IRON BINDING CAPACITY 159 UG/DL (259-388)
[2018-03-31 10:47] LABS: FERRITIN 1561 NG/ML (8-252)
[2018-04-01] MEDS: vancomycin 125mg/5ml ORAL solution 5ml UD bottle PO SCH ×3 (01:10→13:59)
[2018-04-01] MEDS: hydrALAZINE 25 MG tablet PO SCH ×2 (01:10→08:11)
[2018-04-01 03:00] VITALS: BP 144/58
[2018-04-01] MEDS: albuterol 2.5 MG/3 ML nebule NEB SCH ×4 (03:29→15:35)
[2018-04-01 06:20] LABS: BASOPHILS % (AUTO) 0.1 % (0-1); EOSINOPHILS # (AUTO) 0.3 X10'3 (0-0.9); EOSINOPHILS % (AUTO) 2.4 % (0-6); HEMOGLOBIN 7.6 g/dl (12.0-16.0); LYMPHOCYTES # (AUTO) 0.9 X10'3 (1.1-4.8); LYMPHOCYTES % (AUTO) 7.2 % (21-51); MEAN CORPUSCULAR HEMOGLOBIN 32.3 PG (27.0-31.0); MEAN CORPUSCULAR HGB CONC 33.1 % (33.0-36.5); MEAN CORPUSCULAR VOLUME 97.6 FL (78-98); MEAN PLATELET VOLUME 8.6 FL (7.4-10.4); MONOCYTES # (AUTO) 1.2 X10'3 (0-0.9); MONOCYTES % (AUTO) 9.1 % (2-12); NEUTROPHILS # (AUTO) 10.7 X10'3 (1.8-7.7); NEUTROPHILS % (AUTO) 81.2 % (42-75); PLATELET COUNT 209 X10'3 (140-440); RED BLOOD COUNT 2.35 X10'6 (4.20-5.60); WHITE BLOOD COUNT 13.1 X10'3 (4.5-11.0)
[2018-04-01 06:36] LABS: ALBUMIN 2.2 G/DL (3.4-5.0); ANION GAP 7 (8-16); BLOOD UREA NITROGEN 19 MG/DL (7-18); BUN/CREATININE RATIO 5.1 (6.6-38.0); CALCIUM 8.2 MG/DL (8.5-10.1); CHLORIDE 98 MMOL/L (99-107); CREATININE 3.73 MG/DL (0.40-0.90); GLUCOSE 85 MG/DL (70-104); MAGNESIUM 1.7 MG/DL (1.5-2.4); PHOSPHORUS 3.5 MG/DL (2.3-4.5); SODIUM 134 MMOL/L (135-145); TOTAL CARBON DIOXIDE 29.3 MMOL/L (24-32); eGFR 12 ML/MIN
[2018-04-01 07:00] VITALS: BP 154/47
[2018-04-01 07:48] LABS: ANISOCYTOSIS 2+; PLATELET ESTIMATE NORMAL
[2018-04-01 07:49] LABS: POIKILOCYTOSIS FEW; POLYCHROMASIA FEW; STOMATOCYTES 1+
[2018-04-01] MEDS: atorvastatin 20mg tablet PO SCH (08:10)
[2018-04-01] MEDS: lactobacillus rhamnosus 10,000 MMU CELLS/CAPSULE PO SCH (08:10)
[2018-04-01] MEDS: cinacalcet 30mg tablet PO SCH (08:10)
[2018-04-01] MEDS: ALPRAZolam 0.5mg tablet PO SCH (08:10)
[2018-04-01] MEDS: vitamin B comp w/Vit. C tab 1 TAB TABLET PO SCH (08:10)
[2018-04-01] MEDS: citalopram 20mg tablet PO SCH (08:11)
[2018-04-01] MEDS: labetalol 100mg tablet PO SCH ×2 (08:11→13:59)
[2018-04-01] MEDS: heparin, porcine 5000 units/ml vial SQ SCH (08:11)
[2018-04-01] MEDS: diltiazem CD 180mg cap (once-daily) PO SCH (08:11)
[2018-04-01] MEDS: aspirin 81mg tablet.DR PO SCH (08:11)
[2018-04-01] MEDS: levoTHYROXINE 75mcg tablet PO SCH (08:11)
[2018-04-01] MEDS: folic acid 1mg tablet PO SCH (08:28)
[2018-04-01 11:00] VITALS: BP 153/69
[2018-04-01] MEDS: HYDROmorphone 2mg tablet PO PRN (14:10)
[2018-04-01 15:00] VITALS: BP 157/67
== END 2018-04-01 16:05 | DRG 871 ==
LOC: ER 18:48 → ED HOLD 21:16 → PCU 3S 22:00
PROVIDERS: ADMIT Internal Medicine; ATTEND Internal Medicine Critical Care Medicine
PROC: 5A09357 Assistance with Respiratory Ventilation, Less than 24 Consecutive Hours, Continuous Positive Airway Pressure (ICD-10-PCS; 2018-03-20)
PROC: 30233N1 Transfusion of Nonautologous Red Blood Cells into Peripheral Vein, Percutaneous Approach (ICD-10-PCS; principal; 2018-03-21)
PROC: 5A1D70Z Performance of Urinary Filtration, Intermittent, Less than 6 Hours Per Day (ICD-10-PCS; 2018-03-21)
PROC: 5A09357 Assistance with Respiratory Ventilation, Less than 24 Consecutive Hours, Continuous Positive Airway Pressure (ICD-10-PCS; 2018-03-21)
PROC: 5A1D70Z Performance of Urinary Filtration, Intermittent, Less than 6 Hours Per Day (ICD-10-PCS; 2018-03-22)
PROC: 5A1D70Z Performance of Urinary Filtration, Intermittent, Less than 6 Hours Per Day (ICD-10-PCS; 2018-03-24)
PROC: 5A1D70Z Performance of Urinary Filtration, Intermittent, Less than 6 Hours Per Day (ICD-10-PCS; 2018-03-26)
PROC: 5A09357 Assistance with Respiratory Ventilation, Less than 24 Consecutive Hours, Continuous Positive Airway Pressure (ICD-10-PCS; 2018-03-28)
PROC: 5A1D70Z Performance of Urinary Filtration, Intermittent, Less than 6 Hours Per Day (ICD-10-PCS; 2018-03-29)
PROC: 5A1D70Z Performance of Urinary Filtration, Intermittent, Less than 6 Hours Per Day (ICD-10-PCS; 2018-03-31)
DX: A41.9 Sepsis, unspecified organism (principal); J18.1 Lobar pneumonia, unspecified organism; J96.22 Acute and chronic respiratory failure with hypercapnia; N18.6 End stage renal disease; J96.21 Acute and chronic respiratory failure with hypoxia; A04.72 Enterocolitis due to Clostridium difficile, not specified as recurrent; E87.1 Hypo-osmolality and hyponatremia; I13.2 Hypertensive heart and chronic kidney disease with heart failure and with stage 5 chronic kidney disease, or end stage renal disease; J44.1 Chronic obstructive pulmonary disease with (acute) exacerbation; J44.0 Chronic obstructive pulmonary disease with (acute) lower respiratory infection; D64.9 Anemia, unspecified; E78.00 Pure hypercholesterolemia, unspecified; R91.1 Solitary pulmonary nodule; I50.9 Heart failure, unspecified; E78.5 Hyperlipidemia, unspecified; F17.210 Nicotine dependence, cigarettes, uncomplicated; Z56.0 Unemployment, unspecified; Z98.891 History of uterine scar from previous surgery; Z99.81 Dependence on supplemental oxygen; Z99.2 Dependence on renal dialysis; Z79.82 Long term (current) use of aspirin; Z79.890 Hormone replacement therapy; Z82.49 Family history of ischemic heart disease and other diseases of the circulatory system; Z82.3 Family history of stroke; Z80.9 Family history of malignant neoplasm, unspecified; Z83.3 Family history of diabetes mellitus; Z79.899 Other long term (current) drug therapy; Z82.5 Family history of asthma and other chronic lower respiratory diseases
CPT/HCPCS: 36415; 36600; 71045; 71250; 74018; 76937; 80048; 80053; 80202; 82272; 82728; 82803; 83540; 83550; 83605; 83735; 84100; 84145; 85018; 85025; 85027; 85610; 85730; 86885; 86900; 86901; 86902; 86922; 87040; 87070; 87324; 87340; 87449; 90935; 93005; 94640; 94660; 94667; 94668; 94760; 97110; 97116; 97162; 97530; 99291; A6212; A6402; A6449; G0257; J0885; J1170; J1644; J2405; J2543; J2920; J3370; J3490; J7030; P9016

== ENCOUNTER 2018-04-03 16:25 | Emergency (ER) | payer MEDICARE, MEDICAID ==
[~2018-04-03] VITALS: Ht 170.2 cm; Wt 80.0 kg
[~2018-04-03 16:25] MED LIST changes: +ACET325T55 PO; -ALBU2.5V7 NEB; -ASPI-1071 PO; +ASPI81TA52 PO; +HYDR-3965 PO; +LACTC PO; +LEVO250T58 PO; +Nepro PO; +POLY17PO2 PO
[2018-04-03 17:11] LABS: BASOPHILS % (AUTO) 0.3 % (0-1); EOSINOPHILS # (AUTO) 0.4 X10'3 (0-0.9); EOSINOPHILS % (AUTO) 2.8 % (0-6); HEMATOCRIT 22.3 % (35.0-45.0); HEMOGLOBIN 7.4 g/dl (12.0-16.0); LYMPHOCYTES # (AUTO) 0.8 X10'3 (1.1-4.8); LYMPHOCYTES % (AUTO) 5.9 % (21-51); MEAN CORPUSCULAR HEMOGLOBIN 32.1 PG (27.0-31.0); MEAN CORPUSCULAR VOLUME 97.1 FL (78-98); MEAN PLATELET VOLUME 8.6 FL (7.4-10.4); MONOCYTES # (AUTO) 1.1 X10'3 (0-0.9); MONOCYTES % (AUTO) 8.2 % (2-12); NEUTROPHILS # (AUTO) 11.4 X10'3 (1.8-7.7); NEUTROPHILS % (AUTO) 82.8 % (42-75); PLATELET COUNT 221 X10'3 (140-440); RED CELL DISTRIBUTION WIDTH 19.2 % (11.5-14.5); WHITE BLOOD COUNT 13.8 X10'3 (4.5-11.0)
[2018-04-03 17:17] LABS: INR 1.1 INR; PARTIAL THROMBOPLASTIN TIME 32 SECONDS (22-32); PROTHROMBIN TIME 10.9 SECONDS (9.0-12.0)
[2018-04-03 17:26] LABS: ALANINE AMINOTRANSFERASE 19 U/L (12-78); ALBUMIN 2.5 G/DL (3.4-5.0); ALBUMIN/GLOBULIN RATIO 0.7 (1.1-1.5); ALKALINE PHOSPHATASE 72 IU/L (46-116); ANION GAP 7 (8-16); ASPARTATE AMINO TRANSFERASE 12 U/L (10-37); BILIRUBIN,TOTAL 0.6 MG/DL (0.1-1.0); BLOOD UREA NITROGEN 26 MG/DL (7-18); BUN/CREATININE RATIO 5.3 (6.6-38.0); CALCIUM 9.1 MG/DL (8.5-10.1); CHLORIDE 93 MMOL/L (99-107); CREATININE 4.89 MG/DL (0.40-0.90); GLUCOSE 108 MG/DL (70-104); SODIUM 132 MMOL/L (135-145); TOTAL CARBON DIOXIDE 31.6 MMOL/L (24-32); TOTAL PROTEIN 6.3 G/DL (6.4-8.2); eGFR 9 ML/MIN
[2018-04-03 18:03] VITALS: BP 165/72
== END 2018-04-03 19:19 | disposition home or self-care (01) ==
LOC: ER 16:26
DX: J44.1 Chronic obstructive pulmonary disease with (acute) exacerbation (principal); I13.2 Hypertensive heart and chronic kidney disease with heart failure and with stage 5 chronic kidney disease, or end stage renal disease; N18.6 End stage renal disease; E78.00 Pure hypercholesterolemia, unspecified; Z99.2 Dependence on renal dialysis; Z79.82 Long term (current) use of aspirin; Z56.0 Unemployment, unspecified; J90 Pleural effusion, not elsewhere classified
CPT/HCPCS: 36415; 71045; 80053; 83880; 85025; 85610; 85730; 93005; 99285; J7030

== ENCOUNTER 2018-04-04 09:37 | Inpatient (IN) | payer MEDICARE, MEDICAID ==
[~2018-04-04] VITALS: Ht 170.2 cm; Wt 77.8 kg
[2018-04-04] MEDS ORDERED: ipratropium/albuterol 3ml nebule NEB ONE (10:50)
[2018-04-04 11:22] LABS: BASOPHILS % (AUTO) 0.2 % (0-1); EOSINOPHILS # (AUTO) 0.4 X10'3 (0-0.9); EOSINOPHILS % (AUTO) 2.8 % (0-6); HEMOGLOBIN 7.2 g/dl (12.0-16.0); LYMPHOCYTES # (AUTO) 0.6 X10'3 (1.1-4.8); LYMPHOCYTES % (AUTO) 4.4 % (21-51); MEAN CORPUSCULAR HGB CONC 32.9 % (33.0-36.5); MEAN CORPUSCULAR VOLUME 97.4 FL (78-98); MEAN PLATELET VOLUME 8.3 FL (7.4-10.4); MONOCYTES # (AUTO) 0.9 X10'3 (0-0.9); MONOCYTES % (AUTO) 6.7 % (2-12); NEUTROPHILS # (AUTO) 10.9 X10'3 (1.8-7.7); NEUTROPHILS % (AUTO) 85.9 % (42-75); PLATELET COUNT 215 X10'3 (140-440); RED BLOOD COUNT 2.25 X10'6 (4.20-5.60); RED CELL DISTRIBUTION WIDTH 18.7 % (11.5-14.5); WHITE BLOOD COUNT 12.6 X10'3 (4.5-11.0)
[2018-04-04 11:25] LABS: HEMATOCRIT 21.9 % (35.0-45.0)
[2018-04-04 11:32] LABS: INR 1.1 INR; PARTIAL THROMBOPLASTIN TIME 32 SECONDS (22-32); PROTHROMBIN TIME 10.9 SECONDS (9.0-12.0)
[2018-04-04 11:35] LABS: ALANINE AMINOTRANSFERASE 14 U/L (12-78); ALBUMIN 2.4 G/DL (3.4-5.0); ALBUMIN/GLOBULIN RATIO 0.6 (1.1-1.5); ALKALINE PHOSPHATASE 69 IU/L (46-116); ANION GAP 7 (8-16); ANISOCYTOSIS 2+; ASPARTATE AMINO TRANSFERASE 16 U/L (10-37); BILIRUBIN,TOTAL 0.6 MG/DL (0.1-1.0); BLOOD UREA NITROGEN 34 MG/DL (7-18); BUN/CREATININE RATIO 5.7 (6.6-38.0); CALCIUM 9.6 MG/DL (8.5-10.1); CHLORIDE 91 MMOL/L (99-107); CREATININE 5.94 MG/DL (0.40-0.90); GLUCOSE 100 MG/DL (70-104); MICROCYTOSIS 1+; PLATELET ESTIMATE NORMAL; POTASSIUM 4.5 MMOL/L (3.5-5.1); SODIUM 131 MMOL/L (135-145); TOTAL CARBON DIOXIDE 32.9 MMOL/L (24-32); TOTAL PROTEIN 6.3 G/DL (6.4-8.2); eGFR 7 ML/MIN
[2018-04-04] MEDS ORDERED: furosemide 10 MG/1 ML 10ml inj IV ONE (12:30)
[2018-04-04] MEDS ORDERED: heparin 1,000unit/ml 10ml vial 10 ML IV ONE (16:01)
[2018-04-04] MEDS ORDERED: magnesium hydroxide 30ml (MOM) UD suspension PO PRN ×2 (16:05→16:10)
[2018-04-04] MEDS ORDERED: LIDOcaine 1% (10mg/ml) 2ml vial SQ ONE (16:05)
[2018-04-04] MEDS ORDERED: morphine 2 MG/ML inj. syringe IV PRN ×2 (16:05→16:10)
[2018-04-04] MEDS ORDERED: epoetin 20,000 units/ml inj IV ONE (16:05)
[2018-04-04] MEDS ORDERED: morphine 4 MG/ML inj SYRINge IV PRN ×2 (16:05→16:10)
[2018-04-04] MEDS ORDERED: acetaminophen 325mg tablet PO PRN ×4 (16:05→16:10)
[2018-04-04] MEDS ORDERED: albumin (human) 25% 100ml IV 100 ML IV PRN (16:05)
[2018-04-04] MEDS ORDERED: ondansetron/PF 4mg/2ml inj IV PRN ×2 (16:05→16:10)
[2018-04-04 19:00] VITALS: BP 152/62
[2018-04-04 20:06] LABS: ABG BASE EXCESS 3.5 mmol/L (-2.0-3.0); ABG HCO3 33.3 mmol/L (22.0-26.0); ABG OXYGEN SATURATION 86.8 % (95-98); ABG PH (T) 7.179 (7.350-7.450); ABG PO2 (T) 66.3 mmHg (83-108); ALLEN'S TEST Positive; FLOW 15 L/min; FMetHb 0.3 % (0.3-1.12); FO2Hb 85.7 % (94-100); PATIENT TEMPERATURE 36.5; TOTAL HEMOGLOBIN 8.4 G/dl (12.0-16.0)
[2018-04-04 21:31] LABS: ABG BASE EXCESS 1.8 mmol/L (-2.0-3.0); ABG HCO3 29.8 mmol/L (22.0-26.0); ABG OXYGEN SATURATION 99.6 % (95-98); ABG PCO2 (T) 67.6 mmHg (32.0-45.0); ABG PO2 (T) 290.6 mmHg (83-108); ALLEN'S TEST Positive; FMetHb 0.3 % (0.3-1.12); FO2Hb 98.3 % (94-100); MINUTE VOLUME 8 L/min; PATIENT TEMPERATURE 36.6; RESPIRATORY RATE 24 b/min; RESPIRATORY RATE (OBSERVED) 24 b/min; TIDAL VOLUME 340 mL; TOTAL HEMOGLOBIN 8.7 G/dl (12.0-16.0)
[2018-04-04] MEDS ORDERED: LORazepam 2 mg/ml vial IV ONE (21:55)
[2018-04-04 23:00] VITALS: BP 112/85
[2018-04-04] MEDS: heparin, porcine 5000 units/ml vial SQ SCH (23:50)
[2018-04-05 03:00] VITALS: BP 137/73
[2018-04-05 06:00] VITALS: BP 195/85
[2018-04-05 06:24] LABS: BASOPHILS % (AUTO) 0.4 % (0-1); EOSINOPHILS # (AUTO) 0.2 X10'3 (0-0.9); EOSINOPHILS % (AUTO) 1.5 % (0-6); HEMOGLOBIN 7.2 g/dl (12.0-16.0); LYMPHOCYTES # (AUTO) 0.8 X10'3 (1.1-4.8); LYMPHOCYTES % (AUTO) 6.4 % (21-51); MEAN CORPUSCULAR HGB CONC 32.9 % (33.0-36.5); MEAN CORPUSCULAR VOLUME 97.2 FL (78-98); MONOCYTES % (AUTO) 7.5 % (2-12); NEUTROPHILS # (AUTO) 10.7 X10'3 (1.8-7.7); NEUTROPHILS % (AUTO) 84.2 % (42-75); PLATELET COUNT 192 X10'3 (140-440); RED BLOOD COUNT 2.23 X10'6 (4.20-5.60); RED CELL DISTRIBUTION WIDTH 19.1 % (11.5-14.5); WHITE BLOOD COUNT 12.7 X10'3 (4.5-11.0)
[2018-04-05 06:27] LABS: HEMATOCRIT 21.7 % (35.0-45.0)
[2018-04-05 06:44] LABS: ALANINE AMINOTRANSFERASE 14 U/L (12-78); ALBUMIN 2.4 G/DL (3.4-5.0); ALBUMIN/GLOBULIN RATIO 0.6 (1.1-1.5); ALKALINE PHOSPHATASE 61 IU/L (46-116); ANION GAP 10 (8-16); ASPARTATE AMINO TRANSFERASE 16 U/L (10-37); BILIRUBIN,TOTAL 0.6 MG/DL (0.1-1.0); BLOOD UREA NITROGEN 18 MG/DL (7-18); BUN/CREATININE RATIO 5.1 (6.6-38.0); CALCIUM 8.8 MG/DL (8.5-10.1); CHLORIDE 97 MMOL/L (99-107); CREATININE 3.52 MG/DL (0.40-0.90); GLUCOSE 86 MG/DL (70-104); POTASSIUM 4.1 MMOL/L (3.5-5.1); SODIUM 136 MMOL/L (135-145); TOTAL CARBON DIOXIDE 29.3 MMOL/L (24-32); TOTAL PROTEIN 6.5 G/DL (6.4-8.2); eGFR 13 ML/MIN
[2018-04-05 06:54] LABS: HYPOCHROMASIA 1+; PLATELET ESTIMATE NORMAL
[2018-04-05 06:55] LABS: ANISOCYTOSIS 2+; STOMATOCYTES FEW
[2018-04-05] MEDS ORDERED: DILT180C95 PO (07:31)
[2018-04-05] MEDS ORDERED: IPRA3AMP9 IH (07:32)
[2018-04-05] MEDS ORDERED: ALBU8.5H8 INH (07:38)
[2018-04-05] MEDS: heparin, porcine 5000 units/ml vial SQ SCH ×2 (09:12→19:19)
[2018-04-05 11:00] VITALS: BP 167/66
[2018-04-05] MEDS ORDERED: acetaminophen 325mg tablet PO PRN (11:00)
[2018-04-05] MEDS: ipratropium/albuterol 3ml nebule IH SCH ×4 (11:00→22:47)
[2018-04-05] MEDS ORDERED: albuterol 2.5 MG/3 ML nebule NEB PRN (11:20)
[2018-04-05] MEDS: diltiazem CD 180mg cap (once-daily) PO SCH (11:50)
[2018-04-05] MEDS: citalopram 20mg tablet PO SCH (11:50)
[2018-04-05] MEDS: labetalol 100mg tablet PO SCH ×2 (11:51→20:06)
[2018-04-05] MEDS: levoTHYROXINE 75mcg tablet PO SCH (11:52)
[2018-04-05] MEDS: cinacalcet 30mg tablet PO SCH (11:52)
[2018-04-05] MEDS ORDERED: ALPRAZolam 0.5mg tablet PO ONE (12:35)
[2018-04-05] MEDS: calcium acetate 667mg (PhosLO) capsule PO SCH ×2 (13:00→17:38)
[2018-04-05] MEDS ORDERED: LIDOcaine 1%/PF 5ML 10 MG/ML VIAL ONE (14:27)
[2018-04-05 15:00] VITALS: BP 129/78
[2018-04-05] MEDS: NUT.TX.IMP.RENAL FXN,LAC-REDUC (Nepro) 237 ML VANILLA PO SCH (17:30)
[2018-04-05 19:00] VITALS: BP 155/52
[2018-04-05] MEDS: lactobacillus rhamnosus 10,000 MMU CELLS/CAPSULE PO SCH (19:11)
[2018-04-05] MEDS: hydrALAZINE 25 MG tablet PO SCH (19:11)
[2018-04-05 23:00] VITALS: BP 137/30
[2018-04-06] VITALS (17 sets, daily range): BP systolic 124–189; BP diastolic 44–96
[2018-04-06] MEDS: HYDROcodone/acetaminophen 5mg/325mg tablet PO PRN ×3 (03:10→21:46)
[2018-04-06 06:16] LABS: BASOPHILS % (AUTO) 0.3 % (0-1); EOSINOPHILS # (AUTO) 0.3 X10'3 (0-0.9); EOSINOPHILS % (AUTO) 3.5 % (0-6); LYMPHOCYTES # (AUTO) 0.7 X10'3 (1.1-4.8); LYMPHOCYTES % (AUTO) 7.1 % (21-51); MEAN CORPUSCULAR HEMOGLOBIN 32.2 PG (27.0-31.0); MEAN CORPUSCULAR HGB CONC 33.4 % (33.0-36.5); MEAN CORPUSCULAR VOLUME 96.2 FL (78-98); MEAN PLATELET VOLUME 8.7 FL (7.4-10.4); MONOCYTES # (AUTO) 0.6 X10'3 (0-0.9); MONOCYTES % (AUTO) 6.3 % (2-12); NEUTROPHILS # (AUTO) 7.6 X10'3 (1.8-7.7); NEUTROPHILS % (AUTO) 82.8 % (42-75); PLATELET COUNT 169 X10'3 (140-440); RED BLOOD COUNT 1.94 X10'6 (4.20-5.60); RED CELL DISTRIBUTION WIDTH 19.3 % (11.5-14.5); WHITE BLOOD COUNT 9.1 X10'3 (4.5-11.0)
[2018-04-06] MEDS: heparin, porcine 5000 units/ml vial SQ SCH ×2 (06:27→21:47)
[2018-04-06 06:30] LABS: HEMATOCRIT 18.7 % (35.0-45.0); HEMOGLOBIN 6.3 g/dl (12.0-16.0)
[2018-04-06 06:37] LABS: ALANINE AMINOTRANSFERASE 13 U/L (12-78); ALBUMIN 2.2 G/DL (3.4-5.0); ALBUMIN/GLOBULIN RATIO 0.6 (1.1-1.5); ALKALINE PHOSPHATASE 78 IU/L (46-116); ANION GAP 10 (8-16); ASPARTATE AMINO TRANSFERASE 14 U/L (10-37); BILIRUBIN,TOTAL 0.6 MG/DL (0.1-1.0); BLOOD UREA NITROGEN 28 MG/DL (7-18); BUN/CREATININE RATIO 5.9 (6.6-38.0); CALCIUM 8.8 MG/DL (8.5-10.1); CHLORIDE 95 MMOL/L (99-107); CREATININE 4.74 MG/DL (0.40-0.90); GLUCOSE 142 MG/DL (70-104); POTASSIUM 3.6 MMOL/L (3.5-5.1); SODIUM 134 MMOL/L (135-145); TOTAL CARBON DIOXIDE 28.9 MMOL/L (24-32); eGFR 9 ML/MIN
[2018-04-06] MEDS: ipratropium/albuterol 3ml nebule IH SCH ×5 (06:53→23:00)
[2018-04-06] MEDS: NUT.TX.IMP.RENAL FXN,LAC-REDUC (Nepro) 237 ML VANILLA PO SCH ×2 (07:30→17:30)
[2018-04-06 07:33] LABS: ANISOCYTOSIS 2+; HYPOCHROMASIA 1+; PLATELET ESTIMATE NORMAL
[2018-04-06] MEDS: folic acid 1mg tablet PO SCH (08:00)
[2018-04-06] MEDS: labetalol 100mg tablet PO SCH ×3 (08:00→21:47)
[2018-04-06] MEDS ORDERED: heparin 1,000 units/ml 10ml inj HE ONE ×2 (08:00)
[2018-04-06] MEDS ORDERED: heparin 1,000unit/ml 10ml vial 10 ML IV ONE (08:00)
[2018-04-06] MEDS ORDERED: normal saline 1000ml 250 ML IV PRN (08:00)
[2018-04-06] MEDS: hydrALAZINE 25 MG tablet PO SCH ×2 (08:00→21:47)
[2018-04-06] MEDS ORDERED: LIDOcaine 1% (10mg/ml) 2ml vial SQ ONE (08:00)
[2018-04-06] MEDS ORDERED: epoetin 20,000 units/ml inj IV ONE (08:00)
[2018-04-06] MEDS: polyethylene glycol 3350 17gm powd pack PO SCH (08:31)
[2018-04-06] MEDS: lactobacillus rhamnosus 10,000 MMU CELLS/CAPSULE PO SCH ×2 (08:31→21:45)
[2018-04-06] MEDS: calcium acetate 667mg (PhosLO) capsule PO SCH ×3 (08:32→18:00)
[2018-04-06] MEDS: ALPRAZolam 0.5mg tablet PO SCH (08:32)
[2018-04-06] MEDS: levoTHYROXINE 75mcg tablet PO SCH (08:32)
[2018-04-06] MEDS: aspirin 81mg tablet.DR PO SCH (08:32)
[2018-04-06] MEDS: diltiazem CD 180mg cap (once-daily) PO SCH (08:32)
[2018-04-06] MEDS: cinacalcet 30mg tablet PO SCH (08:33)
[2018-04-06] MEDS: folic acid/vitamin B complex w/vitamin C 0.8mg tablet PO SCH (08:33)
[2018-04-06] MEDS: citalopram 20mg tablet PO SCH (10:08)
[2018-04-06] MEDS: atorvastatin 20mg tablet PO SCH ×2 (10:08→21:47)
[2018-04-06 19:34] LABS: BASOPHILS # (AUTO) 0.1 X10'3 (0-0.2); BASOPHILS % (AUTO) 0.8 % (0-1); EOSINOPHILS # (AUTO) 0.2 X10'3 (0-0.9); EOSINOPHILS % (AUTO) 2.9 % (0-6); HEMOGLOBIN 8.2 g/dl (12.0-16.0); MEAN CORPUSCULAR HEMOGLOBIN 30.7 PG (27.0-31.0); MEAN CORPUSCULAR HGB CONC 32.7 % (33.0-36.5); MEAN PLATELET VOLUME 8.8 FL (7.4-10.4); MONOCYTES # (AUTO) 0.8 X10'3 (0-0.9); MONOCYTES % (AUTO) 9.5 % (2-12); NEUTROPHILS # (AUTO) 6.3 X10'3 (1.8-7.7); NEUTROPHILS % (AUTO) 74.8 % (42-75); PLATELET COUNT 169 X10'3 (140-440); RED BLOOD COUNT 2.66 X10'6 (4.20-5.60); RED CELL DISTRIBUTION WIDTH 18.7 % (11.5-14.5); WHITE BLOOD COUNT 8.4 X10'3 (4.5-11.0)
[2018-04-06 20:42] LABS: ANISOCYTOSIS 2+; PLATELET ESTIMATE NORMAL
[2018-04-06 20:43] LABS: HYPOCHROMASIA 1+; POLYCHROMASIA FEW
[2018-04-07] VITALS (9 sets, daily range): BP systolic 140–189; BP diastolic 46–72
[2018-04-07 06:26] LABS: BASOPHILS # (AUTO) 0.1 X10'3 (0-0.2); EOSINOPHILS # (AUTO) 0.3 X10'3 (0-0.9); EOSINOPHILS % (AUTO) 5.7 % (0-6); HEMATOCRIT 25.8 % (35.0-45.0); HEMOGLOBIN 8.6 g/dl (12.0-16.0); LYMPHOCYTES # (AUTO) 1.1 X10'3 (1.1-4.8); LYMPHOCYTES % (AUTO) 18.3 % (21-51); MEAN CORPUSCULAR HEMOGLOBIN 31.4 PG (27.0-31.0); MEAN CORPUSCULAR HGB CONC 33.1 % (33.0-36.5); MEAN CORPUSCULAR VOLUME 94.7 FL (78-98); MEAN PLATELET VOLUME 8.5 FL (7.4-10.4); MONOCYTES # (AUTO) 0.7 X10'3 (0-0.9); MONOCYTES % (AUTO) 11.6 % (2-12); NEUTROPHILS # (AUTO) 3.7 X10'3 (1.8-7.7); NEUTROPHILS % (AUTO) 63.4 % (42-75); PLATELET COUNT 176 X10'3 (140-440); RED BLOOD COUNT 2.73 X10'6 (4.20-5.60); WHITE BLOOD COUNT 5.9 X10'3 (4.5-11.0)
[2018-04-07 06:37] LABS: ALANINE AMINOTRANSFERASE 17 U/L (12-78); ALBUMIN 2.1 G/DL (3.4-5.0); ALBUMIN/GLOBULIN RATIO 0.5 (1.1-1.5); ALKALINE PHOSPHATASE 72 IU/L (46-116); ANION GAP 7 (8-16); ASPARTATE AMINO TRANSFERASE 16 U/L (10-37); BILIRUBIN,TOTAL 0.6 MG/DL (0.1-1.0); BLOOD UREA NITROGEN 16 MG/DL (7-18); BUN/CREATININE RATIO 5.1 (6.6-38.0); CALCIUM 8.7 MG/DL (8.5-10.1); CHLORIDE 97 MMOL/L (99-107); CREATININE 3.15 MG/DL (0.40-0.90); GLUCOSE 79 MG/DL (70-104); POTASSIUM 3.4 MMOL/L (3.5-5.1); SODIUM 136 MMOL/L (135-145); TOTAL CARBON DIOXIDE 32.1 MMOL/L (24-32); TOTAL PROTEIN 6.1 G/DL (6.4-8.2); eGFR 15 ML/MIN
[2018-04-07] MEDS: heparin, porcine 5000 units/ml vial SQ SCH ×2 (07:04→19:23)
[2018-04-07] MEDS: NUT.TX.IMP.RENAL FXN,LAC-REDUC (Nepro) 237 ML VANILLA PO SCH ×2 (07:30→17:30)
[2018-04-07] MEDS: labetalol 100mg tablet PO SCH ×3 (08:00→21:00)
[2018-04-07] MEDS: ipratropium/albuterol 3ml nebule IH SCH ×5 (08:25→23:21)
[2018-04-07] MEDS: aspirin 81mg tablet.DR PO SCH (08:34)
[2018-04-07] MEDS: lactobacillus rhamnosus 10,000 MMU CELLS/CAPSULE PO SCH ×2 (08:34→19:22)
[2018-04-07] MEDS: ALPRAZolam 0.5mg tablet PO SCH (08:35)
[2018-04-07] MEDS: folic acid/vitamin B complex w/vitamin C 0.8mg tablet PO SCH (08:35)
[2018-04-07] MEDS: HYDROcodone/acetaminophen 5mg/325mg tablet PO PRN ×2 (08:36→13:02)
[2018-04-07] MEDS: cinacalcet 30mg tablet PO SCH (08:37)
[2018-04-07] MEDS: polyethylene glycol 3350 17gm powd pack PO SCH (08:39)
[2018-04-07] MEDS: folic acid 1mg tablet PO SCH (08:45)
[2018-04-07] MEDS: citalopram 20mg tablet PO SCH (08:45)
[2018-04-07] MEDS: calcium acetate 667mg (PhosLO) capsule PO SCH ×3 (08:45→18:00)
[2018-04-07 09:09] LABS: ANISOCYTOSIS 2+; HYPOCHROMASIA 2+; PLATELET ESTIMATE NORMAL; POLYCHROMASIA FEW
[2018-04-07] MEDS: levoTHYROXINE 75mcg tablet PO SCH (09:35)
[2018-04-07] MEDS: diltiazem CD 180mg cap (once-daily) PO SCH (11:30)
[2018-04-07] MEDS: hydrALAZINE 25 MG tablet PO SCH ×2 (11:30→19:23)
[2018-04-07] MEDS ORDERED: hydrALAZINE 20mg/ml inj. IV PRN (12:15)
[2018-04-07] MEDS: atorvastatin 20mg tablet PO SCH (21:00)
[2018-04-08] VITALS (7 sets, daily range): BP systolic 98–192; BP diastolic 42–98
[2018-04-08] MEDS: HYDROcodone/acetaminophen 5mg/325mg tablet PO PRN ×3 (04:32→19:24)
[2018-04-08 06:34] LABS: BASOPHILS # (AUTO) 0.1 X10'3 (0-0.2); BASOPHILS % (AUTO) 1.3 % (0-1); EOSINOPHILS # (AUTO) 0.5 X10'3 (0-0.9); EOSINOPHILS % (AUTO) 6.7 % (0-6); HEMATOCRIT 25.5 % (35.0-45.0); HEMOGLOBIN 8.4 g/dl (12.0-16.0); LYMPHOCYTES # (AUTO) 0.9 X10'3 (1.1-4.8); LYMPHOCYTES % (AUTO) 13.2 % (21-51); MEAN CORPUSCULAR VOLUME 93.9 FL (78-98); MEAN PLATELET VOLUME 8.5 FL (7.4-10.4); MONOCYTES # (AUTO) 0.6 X10'3 (0-0.9); MONOCYTES % (AUTO) 8.2 % (2-12); NEUTROPHILS # (AUTO) 4.8 X10'3 (1.8-7.7); NEUTROPHILS % (AUTO) 70.6 % (42-75); PLATELET COUNT 172 X10'3 (140-440); RED BLOOD COUNT 2.72 X10'6 (4.20-5.60); RED CELL DISTRIBUTION WIDTH 18.4 % (11.5-14.5); WHITE BLOOD COUNT 6.9 X10'3 (4.5-11.0)
[2018-04-08 07:04] LABS: ALANINE AMINOTRANSFERASE 16 U/L (12-78); ALBUMIN 2.3 G/DL (3.4-5.0); ALBUMIN/GLOBULIN RATIO 0.6 (1.1-1.5); ALKALINE PHOSPHATASE 66 IU/L (46-116); ANION GAP 10 (8-16); ASPARTATE AMINO TRANSFERASE 12 U/L (10-37); BILIRUBIN,TOTAL 0.6 MG/DL (0.1-1.0); BLOOD UREA NITROGEN 32 MG/DL (7-18); BUN/CREATININE RATIO 6.6 (6.6-38.0); CALCIUM 8.8 MG/DL (8.5-10.1); CHLORIDE 93 MMOL/L (99-107); CREATININE 4.85 MG/DL (0.40-0.90); GLUCOSE 86 MG/DL (70-104); SODIUM 130 MMOL/L (135-145); TOTAL CARBON DIOXIDE 27.4 MMOL/L (24-32); TOTAL PROTEIN 6.1 G/DL (6.4-8.2); eGFR 9 ML/MIN
[2018-04-08] MEDS: ipratropium/albuterol 3ml nebule IH SCH ×5 (07:14→23:00)
[2018-04-08] MEDS: NUT.TX.IMP.RENAL FXN,LAC-REDUC (Nepro) 237 ML VANILLA PO SCH ×2 (07:30→15:00)
[2018-04-08 07:42] LABS: ANISOCYTOSIS 2+; HYPOCHROMASIA 1+; PLATELET ESTIMATE NORMAL
[2018-04-08] MEDS: diltiazem CD 180mg cap (once-daily) PO SCH (07:48)
[2018-04-08] MEDS: labetalol 100mg tablet PO SCH ×3 (07:49→21:11)
[2018-04-08] MEDS: polyethylene glycol 3350 17gm powd pack PO SCH (07:50)
[2018-04-08] MEDS: heparin, porcine 5000 units/ml vial SQ SCH ×2 (07:52→19:25)
[2018-04-08] MEDS: calcium acetate 667mg (PhosLO) capsule PO SCH ×3 (07:53→17:13)
[2018-04-08] MEDS: folic acid/vitamin B complex w/vitamin C 0.8mg tablet PO SCH (07:53)
[2018-04-08] MEDS: folic acid 1mg tablet PO SCH (07:54)
[2018-04-08] MEDS: hydrALAZINE 25 MG tablet PO SCH ×2 (07:54→19:24)
[2018-04-08] MEDS: lactobacillus rhamnosus 10,000 MMU CELLS/CAPSULE PO SCH ×2 (07:54→19:23)
[2018-04-08] MEDS: citalopram 20mg tablet PO SCH (07:54)
[2018-04-08] MEDS: aspirin 81mg tablet.DR PO SCH (07:54)
[2018-04-08] MEDS: levoTHYROXINE 75mcg tablet PO SCH (07:55)
[2018-04-08] MEDS: ALPRAZolam 0.5mg tablet PO SCH (07:55)
[2018-04-08] MEDS: cinacalcet 30mg tablet PO SCH (07:55)
[2018-04-08] MEDS ORDERED: heparin 1,000unit/ml 10ml vial 10 ML IV ONE (08:00)
[2018-04-08] MEDS ORDERED: heparin 1,000 units/ml 10ml inj HE ONE ×2 (08:00)
[2018-04-08] MEDS ORDERED: LIDOcaine 1% (10mg/ml) 2ml vial SQ ONE (08:00)
[2018-04-08] MEDS ORDERED: albumin (human) 25% 100ml IV 100 ML IV PRN (08:00)
[2018-04-08] MEDS ORDERED: epoetin 20,000 units/ml inj IV ONE (08:00)
[2018-04-08] MEDS ORDERED: normal saline 1000ml 100 ML IV PRN (08:00)
[2018-04-08] MEDS: atorvastatin 20mg tablet PO SCH (21:11)
[2018-04-08] MEDS: hydrALAZINE 20mg/ml inj. IV PRN (23:31)
[2018-04-09] VITALS (13 sets, daily range): BP systolic 152–216; BP diastolic 53–79
[2018-04-09] MEDS: HYDROcodone/acetaminophen 5mg/325mg tablet PO PRN ×4 (00:58→20:15)
[2018-04-09 05:16] LABS: BASOPHILS # (AUTO) 0.1 X10'3 (0-0.2); BASOPHILS % (AUTO) 1.1 % (0-1); EOSINOPHILS # (AUTO) 0.3 X10'3 (0-0.9); EOSINOPHILS % (AUTO) 5.8 % (0-6); HEMOGLOBIN 8.7 g/dl (12.0-16.0); LYMPHOCYTES # (AUTO) 1.2 X10'3 (1.1-4.8); LYMPHOCYTES % (AUTO) 20.6 % (21-51); MEAN CORPUSCULAR HEMOGLOBIN 31.5 PG (27.0-31.0); MEAN CORPUSCULAR HGB CONC 33.3 % (33.0-36.5); MEAN CORPUSCULAR VOLUME 94.4 FL (78-98); MEAN PLATELET VOLUME 8.4 FL (7.4-10.4); MONOCYTES # (AUTO) 0.6 X10'3 (0-0.9); MONOCYTES % (AUTO) 9.3 % (2-12); NEUTROPHILS # (AUTO) 3.8 X10'3 (1.8-7.7); NEUTROPHILS % (AUTO) 63.2 % (42-75); PLATELET COUNT 186 X10'3 (140-440); RED BLOOD COUNT 2.75 X10'6 (4.20-5.60); RED CELL DISTRIBUTION WIDTH 18.7 % (11.5-14.5)
[2018-04-09 05:38] LABS: ALANINE AMINOTRANSFERASE 14 U/L (12-78); ALBUMIN 2.5 G/DL (3.4-5.0); ALBUMIN/GLOBULIN RATIO 0.6 (1.1-1.5); ALKALINE PHOSPHATASE 70 IU/L (46-116); ANION GAP 6 (8-16); ASPARTATE AMINO TRANSFERASE 14 U/L (10-37); BILIRUBIN,TOTAL 0.6 MG/DL (0.1-1.0); BLOOD UREA NITROGEN 25 MG/DL (7-18); BUN/CREATININE RATIO 7.2 (6.6-38.0); CALCIUM 9.6 MG/DL (8.5-10.1); CHLORIDE 97 MMOL/L (99-107); CREATININE 3.46 MG/DL (0.40-0.90); GLUCOSE 79 MG/DL (70-104); POTASSIUM 4.1 MMOL/L (3.5-5.1); SODIUM 133 MMOL/L (135-145); TOTAL CARBON DIOXIDE 30.1 MMOL/L (24-32); TOTAL PROTEIN 6.4 G/DL (6.4-8.2); eGFR 13 ML/MIN
[2018-04-09] MEDS: labetalol 100mg tablet PO SCH ×3 (07:16→20:15)
[2018-04-09] MEDS: hydrALAZINE 25 MG tablet PO SCH ×2 (07:17→20:14)
[2018-04-09] MEDS: folic acid 1mg tablet PO SCH (07:17)
[2018-04-09] MEDS: diltiazem CD 180mg cap (once-daily) PO SCH (07:17)
[2018-04-09] MEDS: ALPRAZolam 0.5mg tablet PO SCH (07:18)
[2018-04-09] MEDS: lactobacillus rhamnosus 10,000 MMU CELLS/CAPSULE PO SCH ×2 (07:18→20:15)
[2018-04-09] MEDS: levoTHYROXINE 75mcg tablet PO SCH (07:18)
[2018-04-09] MEDS: aspirin 81mg tablet.DR PO SCH (07:18)
[2018-04-09] MEDS: folic acid/vitamin B complex w/vitamin C 0.8mg tablet PO SCH (07:19)
[2018-04-09] MEDS: cinacalcet 30mg tablet PO SCH (07:19)
[2018-04-09] MEDS: heparin, porcine 5000 units/ml vial SQ SCH ×2 (07:20→20:16)
[2018-04-09] MEDS: polyethylene glycol 3350 17gm powd pack PO SCH (07:22)
[2018-04-09] MEDS: calcium acetate 667mg (PhosLO) capsule PO SCH ×3 (07:22→17:44)
[2018-04-09] MEDS: NUT.TX.IMP.RENAL FXN,LAC-REDUC (Nepro) 237 ML VANILLA PO SCH ×2 (07:30→17:30)
[2018-04-09] MEDS: citalopram 20mg tablet PO SCH (07:30)
[2018-04-09] MEDS: ipratropium/albuterol 3ml nebule IH SCH ×5 (07:41→23:00)
[2018-04-09] MEDS: hydrALAZINE 20mg/ml inj. IV PRN (15:41)
[2018-04-09] MEDS: atorvastatin 20mg tablet PO SCH (20:16)
[2018-04-09] MEDS ORDERED: enalaprilat dihydrate 2.5mg/2ml vial IV ONE (21:35)
[2018-04-10] VITALS (8 sets, daily range): BP systolic 142–192; BP diastolic 47–92
[2018-04-10] MEDS: hydrALAZINE 20mg/ml inj. IV PRN (00:38)
[2018-04-10] MEDS: HYDROcodone/acetaminophen 5mg/325mg tablet PO PRN ×3 (02:52→19:36)
[2018-04-10] MEDS: ipratropium/albuterol 3ml nebule IH SCH ×5 (07:06→23:25)
[2018-04-10] MEDS: NUT.TX.IMP.RENAL FXN,LAC-REDUC (Nepro) 237 ML VANILLA PO SCH ×2 (07:30→17:30)
[2018-04-10] MEDS: aspirin 81mg tablet.DR PO SCH (07:38)
[2018-04-10] MEDS: calcium acetate 667mg (PhosLO) capsule PO SCH ×3 (07:38→18:03)
[2018-04-10] MEDS: ALPRAZolam 0.5mg tablet PO SCH (07:39)
[2018-04-10] MEDS: lactobacillus rhamnosus 10,000 MMU CELLS/CAPSULE PO SCH ×2 (07:48→19:36)
[2018-04-10] MEDS: cinacalcet 30mg tablet PO SCH (07:48)
[2018-04-10] MEDS: levoTHYROXINE 75mcg tablet PO SCH (07:49)
[2018-04-10] MEDS: citalopram 20mg tablet PO SCH (07:49)
[2018-04-10] MEDS: folic acid/vitamin B complex w/vitamin C 0.8mg tablet PO SCH (07:49)
[2018-04-10] MEDS: folic acid 1mg tablet PO SCH (07:50)
[2018-04-10] MEDS: polyethylene glycol 3350 17gm powd pack PO SCH (07:50)
[2018-04-10] MEDS: labetalol 100mg tablet PO SCH ×3 (08:00→21:22)
[2018-04-10] MEDS: hydrALAZINE 25 MG tablet PO SCH ×2 (08:00→19:36)
[2018-04-10] MEDS: diltiazem CD 180mg cap (once-daily) PO SCH (08:00)
[2018-04-10] MEDS ORDERED: normal saline 1000ml 250 ML IV PRN ×2 (08:00→09:05)
[2018-04-10] MEDS ORDERED: LIDOcaine 1% (10mg/ml) 2ml vial SQ ONE (08:00)
[2018-04-10] MEDS: heparin, porcine 5000 units/ml vial SQ SCH ×2 (08:00→19:35)
[2018-04-10] MEDS: atorvastatin 20mg tablet PO SCH (21:21)
[2018-04-11] MEDS: HYDROcodone/acetaminophen 5mg/325mg tablet PO PRN ×4 (00:43→20:10)
[2018-04-11] MEDS: hydrALAZINE 20mg/ml inj. IV PRN ×2 (00:47→11:50)
[2018-04-11 03:00] VITALS: BP 154/56
[2018-04-11 05:30] LABS: BASOPHILS # (AUTO) 0.1 X10'3 (0-0.2); BASOPHILS % (AUTO) 0.9 % (0-1); EOSINOPHILS # (AUTO) 0.4 X10'3 (0-0.9); HEMATOCRIT 24.1 % (35.0-45.0); HEMOGLOBIN 7.9 g/dl (12.0-16.0); LYMPHOCYTES % (AUTO) 17.9 % (21-51); MEAN CORPUSCULAR HGB CONC 32.9 % (33.0-36.5); MEAN CORPUSCULAR VOLUME 94.3 FL (78-98); MEAN PLATELET VOLUME 8.5 FL (7.4-10.4); MONOCYTES # (AUTO) 0.5 X10'3 (0-0.9); NEUTROPHILS # (AUTO) 3.7 X10'3 (1.8-7.7); NEUTROPHILS % (AUTO) 65.2 % (42-75); PLATELET COUNT 194 X10'3 (140-440); RED BLOOD COUNT 2.56 X10'6 (4.20-5.60); RED CELL DISTRIBUTION WIDTH 18.3 % (11.5-14.5); WHITE BLOOD COUNT 5.7 X10'3 (4.5-11.0)
[2018-04-11 06:00] VITALS: BP 174/73
[2018-04-11 06:12] LABS: ALANINE AMINOTRANSFERASE 15 U/L (12-78); ALBUMIN 2.4 G/DL (3.4-5.0); ALBUMIN/GLOBULIN RATIO 0.7 (1.1-1.5); ALKALINE PHOSPHATASE 61 IU/L (46-116); ANION GAP 7 (8-16); ASPARTATE AMINO TRANSFERASE 26 U/L (10-37); BILIRUBIN,TOTAL 0.6 MG/DL (0.1-1.0); BLOOD UREA NITROGEN 22 MG/DL (7-18); BUN/CREATININE RATIO 6.3 (6.6-38.0); CALCIUM 9.3 MG/DL (8.5-10.1); CHLORIDE 97 MMOL/L (99-107); CREATININE 3.48 MG/DL (0.40-0.90); GLUCOSE 77 MG/DL (70-104); POTASSIUM 4.7 MMOL/L (3.5-5.1); SODIUM 134 MMOL/L (135-145); TOTAL CARBON DIOXIDE 29.7 MMOL/L (24-32); TOTAL PROTEIN 5.9 G/DL (6.4-8.2); eGFR 13 ML/MIN
[2018-04-11 06:34] LABS: ANISOCYTOSIS 2+; PLATELET ESTIMATE NORMAL
[2018-04-11 06:35] LABS: MICROCYTOSIS 1+; POLYCHROMASIA 1+
[2018-04-11] MEDS: NUT.TX.IMP.RENAL FXN,LAC-REDUC (Nepro) 237 ML VANILLA PO SCH ×2 (07:30→17:30)
[2018-04-11] MEDS: ipratropium/albuterol 3ml nebule IH SCH ×5 (07:50→23:00)
[2018-04-11] MEDS: calcium acetate 667mg (PhosLO) capsule PO SCH ×3 (07:55→18:42)
[2018-04-11] MEDS: polyethylene glycol 3350 17gm powd pack PO SCH (07:55)
[2018-04-11] MEDS: labetalol 100mg tablet PO SCH ×3 (07:56→20:12)
[2018-04-11] MEDS: diltiazem CD 180mg cap (once-daily) PO SCH (07:56)
[2018-04-11] MEDS: folic acid 1mg tablet PO SCH (07:56)
[2018-04-11] MEDS: cinacalcet 30mg tablet PO SCH (07:56)
[2018-04-11] MEDS: heparin, porcine 5000 units/ml vial SQ SCH ×2 (07:56→20:14)
[2018-04-11] MEDS: citalopram 20mg tablet PO SCH (07:57)
[2018-04-11] MEDS: hydrALAZINE 25 MG tablet PO SCH ×2 (07:57→20:12)
[2018-04-11] MEDS: ALPRAZolam 0.5mg tablet PO SCH (07:57)
[2018-04-11] MEDS: lactobacillus rhamnosus 10,000 MMU CELLS/CAPSULE PO SCH ×2 (07:57→20:11)
[2018-04-11] MEDS: levoTHYROXINE 75mcg tablet PO SCH (07:57)
[2018-04-11] MEDS: folic acid/vitamin B complex w/vitamin C 0.8mg tablet PO SCH (07:57)
[2018-04-11] MEDS: aspirin 81mg tablet.DR PO SCH (07:58)
[2018-04-11] MEDS ORDERED: heparin 1,000unit/ml 10ml vial 10 ML IV ONE (09:08)
[2018-04-11] MEDS ORDERED: LIDOcaine 1% (10mg/ml) 2ml vial SQ ONE (09:10)
[2018-04-11 11:00] VITALS: BP 203/73
[2018-04-11 19:00] VITALS: BP 176/60
[2018-04-11] MEDS: atorvastatin 20mg tablet PO SCH (20:11)
[2018-04-11 23:00] VITALS: BP 162/54
[2018-04-12 03:01] VITALS: BP 157/58
[2018-04-12 06:00] VITALS: BP 185/79
[2018-04-12 06:32] LABS: BASOPHILS # (AUTO) 0.1 X10'3 (0-0.2); EOSINOPHILS # (AUTO) 0.4 X10'3 (0-0.9); EOSINOPHILS % (AUTO) 5.8 % (0-6); HEMATOCRIT 24.4 % (35.0-45.0); LYMPHOCYTES # (AUTO) 0.9 X10'3 (1.1-4.8); LYMPHOCYTES % (AUTO) 14.4 % (21-51); MEAN CORPUSCULAR HGB CONC 32.7 % (33.0-36.5); MEAN CORPUSCULAR VOLUME 94.7 FL (78-98); MEAN PLATELET VOLUME 8.3 FL (7.4-10.4); MONOCYTES # (AUTO) 0.5 X10'3 (0-0.9); MONOCYTES % (AUTO) 7.6 % (2-12); NEUTROPHILS # (AUTO) 4.5 X10'3 (1.8-7.7); NEUTROPHILS % (AUTO) 71.2 % (42-75); PLATELET COUNT 210 X10'3 (140-440); RED BLOOD COUNT 2.57 X10'6 (4.20-5.60); RED CELL DISTRIBUTION WIDTH 18.1 % (11.5-14.5); WHITE BLOOD COUNT 6.3 X10'3 (4.5-11.0)
[2018-04-12 06:44] LABS: ALANINE AMINOTRANSFERASE 20 U/L (12-78); ALBUMIN 2.6 G/DL (3.4-5.0); ALBUMIN/GLOBULIN RATIO 0.8 (1.1-1.5); ALKALINE PHOSPHATASE 66 IU/L (46-116); ANION GAP 9 (8-16); ASPARTATE AMINO TRANSFERASE 22 U/L (10-37); BILIRUBIN,TOTAL 0.5 MG/DL (0.1-1.0); BLOOD UREA NITROGEN 39 MG/DL (7-18); BUN/CREATININE RATIO 7.8 (6.6-38.0); CALCIUM 9.4 MG/DL (8.5-10.1); CHLORIDE 94 MMOL/L (99-107); GLUCOSE 90 MG/DL (70-104); POTASSIUM 4.9 MMOL/L (3.5-5.1); SODIUM 131 MMOL/L (135-145); eGFR 9 ML/MIN
[2018-04-12 06:49] LABS: ANISOCYTOSIS 2+; PLATELET ESTIMATE NORMAL
[2018-04-12] MEDS: NUT.TX.IMP.RENAL FXN,LAC-REDUC (Nepro) 237 ML VANILLA PO SCH ×2 (07:30→17:30)
[2018-04-12] MEDS: folic acid/vitamin B complex w/vitamin C 0.8mg tablet PO SCH (07:45)
[2018-04-12] MEDS: aspirin 81mg tablet.DR PO SCH (07:45)
[2018-04-12] MEDS: lactobacillus rhamnosus 10,000 MMU CELLS/CAPSULE PO SCH ×2 (07:45→20:00)
[2018-04-12] MEDS: folic acid 1mg tablet PO SCH (07:45)
[2018-04-12] MEDS: citalopram 20mg tablet PO SCH (07:45)
[2018-04-12] MEDS: HYDROcodone/acetaminophen 5mg/325mg tablet PO PRN ×3 (07:46→21:12)
[2018-04-12] MEDS: calcium acetate 667mg (PhosLO) capsule PO SCH ×3 (07:46→18:00)
[2018-04-12] MEDS: cinacalcet 30mg tablet PO SCH (07:46)
[2018-04-12] MEDS: levoTHYROXINE 75mcg tablet PO SCH (07:46)
[2018-04-12] MEDS: diltiazem CD 180mg cap (once-daily) PO SCH (07:46)
[2018-04-12] MEDS: ALPRAZolam 0.5mg tablet PO SCH (07:46)
[2018-04-12] MEDS: heparin, porcine 5000 units/ml vial SQ SCH ×2 (07:47→21:12)
[2018-04-12] MEDS ORDERED: heparin 1,000unit/ml 10ml vial 10 ML IV ONE (08:00)
[2018-04-12] MEDS ORDERED: LIDOcaine 1% (10mg/ml) 2ml vial SQ ONE (08:00)
[2018-04-12] MEDS ORDERED: heparin 1,000 units/ml 10ml inj HE ONE ×2 (08:00)
[2018-04-12] MEDS: polyethylene glycol 3350 17gm powd pack PO SCH (08:00)
[2018-04-12] MEDS: hydrALAZINE 25 MG tablet PO SCH ×2 (08:00→21:12)
[2018-04-12] MEDS ORDERED: epoetin 20,000 units/ml inj IV ONE (08:00)
[2018-04-12] MEDS ORDERED: normal saline 1000ml 250 ML IV PRN (08:00)
[2018-04-12] MEDS: labetalol 100mg tablet PO SCH ×3 (08:00→21:11)
[2018-04-12] MEDS: ipratropium/albuterol 3ml nebule IH SCH ×5 (08:20→23:00)
[2018-04-12 11:00] VITALS: BP 188/60
[2018-04-12 17:02] VITALS: BP 140/43
[2018-04-12 19:00] VITALS: BP 174/71
[2018-04-12] MEDS: atorvastatin 20mg tablet PO SCH (21:11)
[2018-04-12 23:00] VITALS: BP 177/59
[2018-04-13] VITALS (8 sets, daily range): BP systolic 89–192; BP diastolic 41–88
[2018-04-13 05:32] LABS: BASOPHILS % (AUTO) 0.7 % (0-1); EOSINOPHILS # (AUTO) 0.3 X10'3 (0-0.9); EOSINOPHILS % (AUTO) 5.5 % (0-6); HEMATOCRIT 25.5 % (35.0-45.0); HEMOGLOBIN 8.4 g/dl (12.0-16.0); LYMPHOCYTES # (AUTO) 0.8 X10'3 (1.1-4.8); LYMPHOCYTES % (AUTO) 15.2 % (21-51); MEAN CORPUSCULAR HGB CONC 32.8 % (33.0-36.5); MEAN CORPUSCULAR VOLUME 94.5 FL (78-98); MEAN PLATELET VOLUME 8.9 FL (7.4-10.4); MONOCYTES # (AUTO) 0.4 X10'3 (0-0.9); MONOCYTES % (AUTO) 8.2 % (2-12); NEUTROPHILS # (AUTO) 3.9 X10'3 (1.8-7.7); NEUTROPHILS % (AUTO) 70.4 % (42-75); PLATELET COUNT 251 X10'3 (140-440); RED CELL DISTRIBUTION WIDTH 18.5 % (11.5-14.5); WHITE BLOOD COUNT 5.5 X10'3 (4.5-11.0)
[2018-04-13 05:46] LABS: ALANINE AMINOTRANSFERASE 30 U/L (12-78); ALBUMIN 2.8 G/DL (3.4-5.0); ALBUMIN/GLOBULIN RATIO 0.7 (1.1-1.5); ALKALINE PHOSPHATASE 64 IU/L (46-116); ANION GAP 7 (8-16); ASPARTATE AMINO TRANSFERASE 39 U/L (10-37); BILIRUBIN,TOTAL 0.5 MG/DL (0.1-1.0); BLOOD UREA NITROGEN 26 MG/DL (7-18); BUN/CREATININE RATIO 7.3 (6.6-38.0); CALCIUM 9.3 MG/DL (8.5-10.1); CHLORIDE 97 MMOL/L (99-107); CREATININE 3.57 MG/DL (0.40-0.90); GLUCOSE 81 MG/DL (70-104); SODIUM 135 MMOL/L (135-145); TOTAL CARBON DIOXIDE 30.7 MMOL/L (24-32); TOTAL PROTEIN 6.6 G/DL (6.4-8.2); eGFR 13 ML/MIN
[2018-04-13 05:48] LABS: POTASSIUM 4.6 MMOL/L (3.5-5.1)
[2018-04-13 06:20] LABS: ANISOCYTOSIS 2+; PLATELET ESTIMATE NORMAL
[2018-04-13] MEDS: NUT.TX.IMP.RENAL FXN,LAC-REDUC (Nepro) 237 ML VANILLA PO SCH ×2 (07:30→08:38)
[2018-04-13] MEDS: polyethylene glycol 3350 17gm powd pack PO SCH ×2 (08:00→08:26)
[2018-04-13] MEDS: citalopram 20mg tablet PO SCH (08:25)
[2018-04-13] MEDS: hydrALAZINE 25 MG tablet PO SCH ×2 (08:25→20:16)
[2018-04-13] MEDS: folic acid/vitamin B complex w/vitamin C 0.8mg tablet PO SCH (08:25)
[2018-04-13] MEDS: levoTHYROXINE 75mcg tablet PO SCH (08:25)
[2018-04-13] MEDS: cinacalcet 30mg tablet PO SCH (08:25)
[2018-04-13] MEDS: aspirin 81mg tablet.DR PO SCH (08:25)
[2018-04-13] MEDS: lactobacillus rhamnosus 10,000 MMU CELLS/CAPSULE PO SCH ×2 (08:25→20:16)
[2018-04-13] MEDS: labetalol 100mg tablet PO SCH ×3 (08:25→21:36)
[2018-04-13] MEDS: folic acid 1mg tablet PO SCH (08:25)
[2018-04-13] MEDS: diltiazem CD 180mg cap (once-daily) PO SCH (08:25)
[2018-04-13] MEDS: ALPRAZolam 0.5mg tablet PO SCH (08:25)
[2018-04-13] MEDS: heparin, porcine 5000 units/ml vial SQ SCH ×2 (08:26→20:16)
[2018-04-13] MEDS: calcium acetate 667mg (PhosLO) capsule PO SCH ×3 (08:27→17:23)
[2018-04-13] MEDS: HYDROcodone/acetaminophen 5mg/325mg tablet PO PRN ×3 (08:32→20:17)
[2018-04-13] MEDS: ipratropium/albuterol 3ml nebule IH SCH ×5 (09:02→23:00)
[2018-04-13] MEDS: atorvastatin 20mg tablet PO SCH (20:16)
[2018-04-14] VITALS (7 sets, daily range): BP systolic 129–186; BP diastolic 52–97
[2018-04-14 03:11] LABS: BASOPHILS # (AUTO) 0.1 X10'3 (0-0.2); BASOPHILS % (AUTO) 1.1 % (0-1); EOSINOPHILS # (AUTO) 0.3 X10'3 (0-0.9); EOSINOPHILS % (AUTO) 5.6 % (0-6); HEMATOCRIT 22.5 % (35.0-45.0); HEMOGLOBIN 7.4 g/dl (12.0-16.0); LYMPHOCYTES # (AUTO) 0.9 X10'3 (1.1-4.8); LYMPHOCYTES % (AUTO) 14.5 % (21-51); MEAN CORPUSCULAR HGB CONC 32.8 % (33.0-36.5); MEAN CORPUSCULAR VOLUME 94.7 FL (78-98); MEAN PLATELET VOLUME 8.1 FL (7.4-10.4); MONOCYTES # (AUTO) 0.4 X10'3 (0-0.9); MONOCYTES % (AUTO) 7.3 % (2-12); NEUTROPHILS # (AUTO) 4.4 X10'3 (1.8-7.7); NEUTROPHILS % (AUTO) 71.5 % (42-75); PLATELET COUNT 218 X10'3 (140-440); RED BLOOD COUNT 2.38 X10'6 (4.20-5.60); RED CELL DISTRIBUTION WIDTH 18.4 % (11.5-14.5); WHITE BLOOD COUNT 6.1 X10'3 (4.5-11.0)
[2018-04-14] MEDS: HYDROcodone/acetaminophen 5mg/325mg tablet PO PRN ×3 (03:12→16:24)
[2018-04-14 03:24] LABS: ALANINE AMINOTRANSFERASE 24 U/L (12-78); ALBUMIN 2.6 G/DL (3.4-5.0); ALBUMIN/GLOBULIN RATIO 0.7 (1.1-1.5); ALKALINE PHOSPHATASE 63 IU/L (46-116); ANION GAP 9 (8-16); ASPARTATE AMINO TRANSFERASE 26 U/L (10-37); BILIRUBIN,TOTAL 0.5 MG/DL (0.1-1.0); BLOOD UREA NITROGEN 36 MG/DL (7-18); BUN/CREATININE RATIO 7.5 (6.6-38.0); CALCIUM 9.3 MG/DL (8.5-10.1); CHLORIDE 96 MMOL/L (99-107); GLUCOSE 96 MG/DL (70-104); POTASSIUM 4.4 MMOL/L (3.5-5.1); SODIUM 136 MMOL/L (135-145); TOTAL CARBON DIOXIDE 30.8 MMOL/L (24-32); TOTAL PROTEIN 6.1 G/DL (6.4-8.2); eGFR 9 ML/MIN
[2018-04-14] MEDS: hydrALAZINE 20mg/ml inj. IV PRN ×2 (03:38→16:18)
[2018-04-14 03:52] LABS: ANISOCYTOSIS 2+; PLATELET ESTIMATE NORMAL
[2018-04-14 03:53] LABS: LARGE PLATELETS FEW
[2018-04-14] MEDS: ipratropium/albuterol 3ml nebule IH SCH ×3 (06:55→15:00)
[2018-04-14] MEDS: NUT.TX.IMP.RENAL FXN,LAC-REDUC (Nepro) 237 ML VANILLA PO SCH (07:30)
[2018-04-14] MEDS: diltiazem CD 180mg cap (once-daily) PO SCH (07:48)
[2018-04-14] MEDS: calcium acetate 667mg (PhosLO) capsule PO SCH ×2 (07:48→13:00)
[2018-04-14] MEDS: lactobacillus rhamnosus 10,000 MMU CELLS/CAPSULE PO SCH (07:48)
[2018-04-14] MEDS: cinacalcet 30mg tablet PO SCH (07:48)
[2018-04-14] MEDS: citalopram 20mg tablet PO SCH (07:48)
[2018-04-14] MEDS: heparin, porcine 5000 units/ml vial SQ SCH (07:48)
[2018-04-14] MEDS: folic acid/vitamin B complex w/vitamin C 0.8mg tablet PO SCH (07:49)
[2018-04-14] MEDS: levoTHYROXINE 75mcg tablet PO SCH (07:49)
[2018-04-14] MEDS: folic acid 1mg tablet PO SCH (07:49)
[2018-04-14] MEDS: ALPRAZolam 0.5mg tablet PO SCH (07:49)
[2018-04-14] MEDS: aspirin 81mg tablet.DR PO SCH (07:49)
[2018-04-14] MEDS: labetalol 100mg tablet PO SCH ×2 (07:53→13:45)
[2018-04-14] MEDS: polyethylene glycol 3350 17gm powd pack PO SCH (07:53)
[2018-04-14] MEDS: hydrALAZINE 25 MG tablet PO SCH (07:54)
[2018-04-14] MEDS ORDERED: normal saline 1000ml 250 ML IV PRN (07:56)
[2018-04-14] MEDS ORDERED: LIDOcaine 1% (10mg/ml) 2ml vial SQ ONE (08:00)
[2018-04-14] MEDS ORDERED: epoetin 20,000 units/ml inj IV ONE (08:00)
[2018-04-14] MEDS ORDERED: NUT.TX.IMP.RENAL FXN,LAC-REDUC (Nepro) 237 ML VANILLA PO SCH (13:00)
== END 2018-04-14 16:45 | DRG 291 ==
LOC: ER 09:38 → ED HOLD 16:03 → PCU 3S 18:10
PROC: 5A1D70Z Performance of Urinary Filtration, Intermittent, Less than 6 Hours Per Day (ICD-10-PCS; 2018-04-04)
PROC: 5A09357 Assistance with Respiratory Ventilation, Less than 24 Consecutive Hours, Continuous Positive Airway Pressure (ICD-10-PCS; 2018-04-04)
PROC: 5A09357 Assistance with Respiratory Ventilation, Less than 24 Consecutive Hours, Continuous Positive Airway Pressure (ICD-10-PCS; 2018-04-05)
PROC: 30233N1 Transfusion of Nonautologous Red Blood Cells into Peripheral Vein, Percutaneous Approach (ICD-10-PCS; principal; 2018-04-06)
PROC: 5A1D70Z Performance of Urinary Filtration, Intermittent, Less than 6 Hours Per Day (ICD-10-PCS; 2018-04-06)
PROC: 5A09357 Assistance with Respiratory Ventilation, Less than 24 Consecutive Hours, Continuous Positive Airway Pressure (ICD-10-PCS; 2018-04-06)
PROC: 5A09357 Assistance with Respiratory Ventilation, Less than 24 Consecutive Hours, Continuous Positive Airway Pressure (ICD-10-PCS; 2018-04-07)
PROC: 5A1D70Z Performance of Urinary Filtration, Intermittent, Less than 6 Hours Per Day (ICD-10-PCS; 2018-04-08)
PROC: 5A09357 Assistance with Respiratory Ventilation, Less than 24 Consecutive Hours, Continuous Positive Airway Pressure (ICD-10-PCS; 2018-04-08)
PROC: 5A09357 Assistance with Respiratory Ventilation, Less than 24 Consecutive Hours, Continuous Positive Airway Pressure (ICD-10-PCS; 2018-04-09)
PROC: 5A1D70Z Performance of Urinary Filtration, Intermittent, Less than 6 Hours Per Day (ICD-10-PCS; 2018-04-10)
PROC: 5A1D70Z Performance of Urinary Filtration, Intermittent, Less than 6 Hours Per Day (ICD-10-PCS; 2018-04-12)
PROC: 5A1D70Z Performance of Urinary Filtration, Intermittent, Less than 6 Hours Per Day (ICD-10-PCS; 2018-04-14)
DX: I13.2 Hypertensive heart and chronic kidney disease with heart failure and with stage 5 chronic kidney disease, or end stage renal disease (principal); I50.43 Acute on chronic combined systolic (congestive) and diastolic (congestive) heart failure; N18.6 End stage renal disease; J18.9 Pneumonia, unspecified organism; J44.1 Chronic obstructive pulmonary disease with (acute) exacerbation; J44.0 Chronic obstructive pulmonary disease with (acute) lower respiratory infection; R62.7 Adult failure to thrive; D64.9 Anemia, unspecified; E78.00 Pure hypercholesterolemia, unspecified; Z99.2 Dependence on renal dialysis; Z79.899 Other long term (current) drug therapy; Z79.82 Long term (current) use of aspirin; Z82.3 Family history of stroke; Z82.41 Family history of sudden cardiac death; Z82.49 Family history of ischemic heart disease and other diseases of the circulatory system; Z82.5 Family history of asthma and other chronic lower respiratory diseases; Z83.3 Family history of diabetes mellitus
CPT/HCPCS: 36415; 36600; 71045; 71046; 71250; 80053; 82803; 83880; 84443; 84484; 85018; 85025; 85610; 85730; 86885; 86900; 86901; 86922; 87070; 90935; 93005; 93306; 94640; 94660; 94760; 97110; 97116; 97162; 99285; A6402; G0257; J0360; J0885; J1644; J1940; J2001; J2060; J3490; J7030; P9016

== ENCOUNTER 2018-05-09 02:59 | Inpatient (IN) | payer MEDICARE, MEDICAID ==
[2018-05-09] VITALS (11 sets, daily range): BP systolic 151–199; BP diastolic 67–97
[~2018-05-09] VITALS: Ht 162.6 cm; Wt 64.8 kg
[~2018-05-09 02:59] MED LIST changes: -ALBU6.7H INH; +ALBU8.5H8 INH; +ATOR40TA PO; -CALC667C5 PO; -DILT180C66 PO; +DILT180C95 PO; +FURO-149 PO; +HEPA1DIS10 SQ; +IPRA3AMP9 IH; -IPRA3AMP9 NEB; +LACT1CAP65 PO; -LACTC PO; -LEVO250T58 PO; +ONDA4TAB6 PO; -POLY17PO2 PO; +POTA10TA19 PO; -ROSU10TA PO; +SEVE800T8 PO; +VANC5VIA PO; +vancomycin PO
[2018-05-09] MEDS ORDERED: albuterol 2.5 MG/3 ML nebule CONTNEB PRN (03:35)
[2018-05-09] MEDS ORDERED: methylPREDNISolone sod succ 125mg/2ml vial IV ONE (03:35)
[2018-05-09 03:45] LABS: INR 1.1 INR; PROTHROMBIN TIME 11.2 SECONDS (9.0-12.0)
[2018-05-09 03:46] LABS: PARTIAL THROMBOPLASTIN TIME 33 SECONDS (22-32)
[2018-05-09 03:47] LABS: ALANINE AMINOTRANSFERASE 16 U/L (12-78); ALBUMIN 2.8 G/DL (3.4-5.0); ALBUMIN/GLOBULIN RATIO 0.7 (1.1-1.5); ALKALINE PHOSPHATASE 72 IU/L (46-116); ANION GAP 8 (8-16); ASPARTATE AMINO TRANSFERASE 15 U/L (10-37); BILIRUBIN,TOTAL 0.6 MG/DL (0.1-1.0); BLOOD UREA NITROGEN 34 MG/DL (7-18); BUN/CREATININE RATIO 7.3 (6.6-38.0); CALCIUM 11.2 MG/DL (8.5-10.1); CHLORIDE 98 MMOL/L (99-107); CREATININE 4.67 MG/DL (0.40-0.90); GLUCOSE 98 MG/DL (70-104); POTASSIUM 3.8 MMOL/L (3.5-5.1); SODIUM 136 MMOL/L (135-145); TOTAL CARBON DIOXIDE 30.2 MMOL/L (24-32); TOTAL PROTEIN 7.1 G/DL (6.4-8.2); eGFR 10 ML/MIN
[2018-05-09 04:02] LABS: BASOPHILS % (AUTO) 0.2 % (0-1); EOSINOPHILS # (AUTO) 0.5 X10'3 (0-0.9); EOSINOPHILS % (AUTO) 4.1 % (0-6); HEMATOCRIT 22.5 % (35.0-45.0); HEMOGLOBIN 7.3 g/dl (12.0-16.0); LYMPHOCYTES # (AUTO) 0.8 X10'3 (1.1-4.8); LYMPHOCYTES % (AUTO) 6.9 % (21-51); MEAN CORPUSCULAR HEMOGLOBIN 30.5 PG (27.0-31.0); MEAN CORPUSCULAR HGB CONC 32.4 % (33.0-36.5); MEAN CORPUSCULAR VOLUME 94.3 FL (78-98); MEAN PLATELET VOLUME 8.7 FL (7.4-10.4); MONOCYTES # (AUTO) 0.7 X10'3 (0-0.9); MONOCYTES % (AUTO) 5.6 % (2-12); NEUTROPHILS # (AUTO) 9.9 X10'3 (1.8-7.7); NEUTROPHILS % (AUTO) 83.2 % (42-75); PLATELET COUNT 234 X10'3 (140-440); RED BLOOD COUNT 2.38 X10'6 (4.20-5.60); RED CELL DISTRIBUTION WIDTH 18.5 % (11.5-14.5); WHITE BLOOD COUNT 11.9 X10'3 (4.5-11.0)
[2018-05-09] MEDS ORDERED: LORazepam 2 mg/ml vial IV ONE (04:15)
[2018-05-09 05:06] LABS: ABG BASE EXCESS 4.9 mmol/L (-2.0-3.0); ABG OXYGEN SATURATION 96.6 % (95-98); ABG PCO2 (T) 55.1 mmHg (32.0-45.0); ABG PH (T) 7.366 (7.350-7.450); ABG PO2 (T) 90.7 mmHg (83-108); ALLEN'S TEST Positive; FCOHb 1.7 % (0.5-1.5); FMetHb 0.3 % (0.3-1.12); FO2Hb 94.7 % (94-100); PATIENT TEMPERATURE 36.4; RESPIRATORY RATE 20 b/min; RESPIRATORY RATE (OBSERVED) 20 b/min; TOTAL HEMOGLOBIN 7.6 G/dl (12.0-16.0)
[2018-05-09] MEDS ORDERED: morphine 2 MG/ML inj. syringe IV PRN (05:15)
[2018-05-09] MEDS ORDERED: ipratropium/albuterol 3ml nebule NEB PRN (05:15)
[2018-05-09] MEDS ORDERED: acetaminophen 325mg tablet PO PRN (05:15)
[2018-05-09] MEDS ORDERED: acetaminophen 650mg rectal suppository RC PRN (05:15)
[2018-05-09] MEDS ORDERED: ondansetron/PF 4mg/2ml inj IV PRN (05:15)
[2018-05-09 06:26] LABS: ANISOCYTOSIS 2+; LARGE PLATELETS FEW; PLATELET ESTIMATE NORMAL
[2018-05-09] MEDS: ipratropium/albuterol 3ml nebule NEB SCH ×5 (07:14→21:00)
[2018-05-09] MEDS: sevelamer carbonate 800mg tablet PO SCH ×3 (07:30→20:01)
[2018-05-09] MEDS: docusate sod 100mg capsule PO SCH ×2 (08:00→19:59)
[2018-05-09] MEDS: furosemide 40mg tablet PO SCH (08:00)
[2018-05-09] MEDS: vancomycin 125mg/5ml ORAL solution 5ml UD bottle PEG SCH ×3 (08:00→19:58)
[2018-05-09] MEDS ORDERED: NEPRO PO SCH (08:00)
[2018-05-09] MEDS ORDERED: heparin 1,000unit/ml 10ml vial 10 ML IV ONE (08:19)
[2018-05-09] MEDS ORDERED: heparin 1,000 units/ml 10ml inj IV ONE (08:20)
[2018-05-09] MEDS ORDERED: epoetin 20,000 units/ml inj IV ONE (08:20)
[2018-05-09] MEDS ORDERED: albumin (human) 25% 100ml IV 100 ML IV PRN (08:20)
[2018-05-09] MEDS: heparin, porcine 5000 units/ml vial SQ SCH ×2 (08:59→19:58)
[2018-05-09] MEDS: hydrALAZINE 25 MG tablet PO SCH ×2 (11:18→19:59)
[2018-05-09] MEDS: diltiazem CD 180mg cap (once-daily) PO SCH (11:19)
[2018-05-09] MEDS: citalopram 20mg tablet PO SCH (11:20)
[2018-05-09] MEDS: folic acid 1mg tablet PO SCH (11:21)
[2018-05-09] MEDS: aspirin 81mg tablet.DR PO SCH (11:21)
[2018-05-09] MEDS: folic acid/vitamin B complex w/vitamin C 0.8mg tablet PO SCH (11:23)
[2018-05-09] MEDS: levoTHYROXINE 75mcg tablet PO SCH (11:23)
[2018-05-09] MEDS: ALPRAZolam 0.5mg tablet PO SCH (11:24)
[2018-05-09] MEDS: labetalol 100mg tablet PO SCH ×3 (11:24→20:15)
[2018-05-09] MEDS: lactobacillus rhamnosus 10,000 MMU CELLS/CAPSULE PO SCH (19:59)
[2018-05-09] MEDS: cinacalcet 30mg tablet PO SCH (20:01)
[2018-05-09] MEDS: atorvastatin 20mg tablet PO SCH (20:15)
[2018-05-09] MEDS: HYDROcodone/acetaminophen 5mg/325mg tablet PO PRN (20:25)
[2018-05-10] VITALS (8 sets, daily range): BP systolic 151–182; BP diastolic 50–67
[2018-05-10] MEDS: vancomycin 125mg/5ml ORAL solution 5ml UD bottle PEG SCH ×3 (03:07→14:12)
[2018-05-10 05:52] LABS: BASOPHILS % (AUTO) 0.1 % (0-1); EOSINOPHILS # (AUTO) 0.1 X10'3 (0-0.9); EOSINOPHILS % (AUTO) 1.3 % (0-6); HEMATOCRIT 26.7 % (35.0-45.0); HEMOGLOBIN 8.7 g/dl (12.0-16.0); LYMPHOCYTES # (AUTO) 0.9 X10'3 (1.1-4.8); MEAN CORPUSCULAR HEMOGLOBIN 30.4 PG (27.0-31.0); MEAN CORPUSCULAR HGB CONC 32.4 % (33.0-36.5); MEAN PLATELET VOLUME 8.5 FL (7.4-10.4); MONOCYTES # (AUTO) 0.6 X10'3 (0-0.9); MONOCYTES % (AUTO) 6.9 % (2-12); NEUTROPHILS # (AUTO) 7.4 X10'3 (1.8-7.7); NEUTROPHILS % (AUTO) 81.7 % (42-75); PLATELET COUNT 231 X10'3 (140-440); RED BLOOD COUNT 2.85 X10'6 (4.20-5.60); RED CELL DISTRIBUTION WIDTH 18.3 % (11.5-14.5)
[2018-05-10 06:08] LABS: INR 1.1 INR; PARTIAL THROMBOPLASTIN TIME 33 SECONDS (22-32); PROTHROMBIN TIME 11.1 SECONDS (9.0-12.0)
[2018-05-10 06:16] LABS: ALANINE AMINOTRANSFERASE 13 U/L (12-78); ALBUMIN 2.8 G/DL (3.4-5.0); ALBUMIN/GLOBULIN RATIO 0.7 (1.1-1.5); ALKALINE PHOSPHATASE 65 IU/L (46-116); ANION GAP 6 (8-16); ASPARTATE AMINO TRANSFERASE 13 U/L (10-37); BILIRUBIN,TOTAL 0.6 MG/DL (0.1-1.0); BLOOD UREA NITROGEN 26 MG/DL (7-18); BUN/CREATININE RATIO 9.4 (6.6-38.0); CALCIUM 10.8 MG/DL (8.5-10.1); CHLORIDE 100 MMOL/L (99-107); CREATININE 2.77 MG/DL (0.40-0.90); GLUCOSE 109 MG/DL (70-104); MAGNESIUM 2.1 MG/DL (1.5-2.4); PHOSPHORUS 3.1 MG/DL (2.3-4.5); POTASSIUM 4.1 MMOL/L (3.5-5.1); SODIUM 140 MMOL/L (135-145); TOTAL CARBON DIOXIDE 34.1 MMOL/L (24-32); TOTAL PROTEIN 7.1 G/DL (6.4-8.2); eGFR 17 ML/MIN
[2018-05-10 06:41] LABS: ANISOCYTOSIS 2+; PLATELET ESTIMATE NORMAL; POLYCHROMASIA 1+
[2018-05-10] MEDS: ipratropium/albuterol 3ml nebule NEB SCH ×4 (07:08→20:55)
[2018-05-10] MEDS: sevelamer carbonate 800mg tablet PO SCH ×3 (07:30→17:35)
[2018-05-10] MEDS: hydrALAZINE 25 MG tablet PO SCH ×2 (07:35→20:31)
[2018-05-10] MEDS: citalopram 20mg tablet PO SCH (07:35)
[2018-05-10] MEDS: diltiazem CD 180mg cap (once-daily) PO SCH (07:35)
[2018-05-10] MEDS: docusate sod 100mg capsule PO SCH ×2 (07:35→20:00)
[2018-05-10] MEDS: lactobacillus rhamnosus 10,000 MMU CELLS/CAPSULE PO SCH ×2 (07:35→20:32)
[2018-05-10] MEDS: aspirin 81mg tablet.DR PO SCH (07:36)
[2018-05-10] MEDS: folic acid 1mg tablet PO SCH (07:36)
[2018-05-10] MEDS: folic acid/vitamin B complex w/vitamin C 0.8mg tablet PO SCH (07:36)
[2018-05-10] MEDS: levoTHYROXINE 75mcg tablet PO SCH (07:36)
[2018-05-10] MEDS: furosemide 40mg tablet PO SCH (07:36)
[2018-05-10] MEDS: labetalol 100mg tablet PO SCH ×3 (07:37→20:32)
[2018-05-10] MEDS: ALPRAZolam 0.5mg tablet PO SCH (07:37)
[2018-05-10] MEDS: heparin, porcine 5000 units/ml vial SQ SCH ×2 (07:38→20:32)
[2018-05-10] MEDS: HYDROcodone/acetaminophen 5mg/325mg tablet PO PRN (11:20)
[2018-05-10] MEDS: cinacalcet 30mg tablet PO SCH (17:34)
[2018-05-10] MEDS: atorvastatin 20mg tablet PO SCH (20:32)
[2018-05-10] MEDS: vancomycin 125mg/5ml ORAL solution 5ml UD bottle PO SCH (20:33)
[2018-05-11] VITALS (7 sets, daily range): BP systolic 124–182; BP diastolic 57–88
[2018-05-11] MEDS: vancomycin 125mg/5ml ORAL solution 5ml UD bottle PO SCH ×4 (02:13→19:23)
[2018-05-11] MEDS: HYDROcodone/acetaminophen 5mg/325mg tablet PO PRN ×2 (05:04→14:18)
[2018-05-11 05:39] LABS: BASOPHILS % (AUTO) 0.5 % (0-1); EOSINOPHILS # (AUTO) 0.3 X10'3 (0-0.9); EOSINOPHILS % (AUTO) 3.1 % (0-6); HEMATOCRIT 25.9 % (35.0-45.0); HEMOGLOBIN 8.4 g/dl (12.0-16.0); LYMPHOCYTES # (AUTO) 1.5 X10'3 (1.1-4.8); LYMPHOCYTES % (AUTO) 16.1 % (21-51); MEAN CORPUSCULAR HEMOGLOBIN 30.4 PG (27.0-31.0); MEAN CORPUSCULAR HGB CONC 32.3 % (33.0-36.5); MEAN CORPUSCULAR VOLUME 94.2 FL (78-98); MEAN PLATELET VOLUME 8.5 FL (7.4-10.4); MONOCYTES # (AUTO) 0.7 X10'3 (0-0.9); MONOCYTES % (AUTO) 7.6 % (2-12); NEUTROPHILS # (AUTO) 6.9 X10'3 (1.8-7.7); NEUTROPHILS % (AUTO) 72.7 % (42-75); PLATELET COUNT 237 X10'3 (140-440); RED BLOOD COUNT 2.75 X10'6 (4.20-5.60); WHITE BLOOD COUNT 9.5 X10'3 (4.5-11.0)
[2018-05-11 05:52] LABS: INR 1.1 INR; PARTIAL THROMBOPLASTIN TIME 30 SECONDS (22-32); PROTHROMBIN TIME 11.2 SECONDS (9.0-12.0)
[2018-05-11 06:01] LABS: ALANINE AMINOTRANSFERASE 13 U/L (12-78); ALBUMIN 2.6 G/DL (3.4-5.0); ALBUMIN/GLOBULIN RATIO 0.7 (1.1-1.5); ALKALINE PHOSPHATASE 67 IU/L (46-116); ANION GAP 9 (8-16); ASPARTATE AMINO TRANSFERASE 9 U/L (10-37); BILIRUBIN,TOTAL 0.5 MG/DL (0.1-1.0); BLOOD UREA NITROGEN 52 MG/DL (7-18); BUN/CREATININE RATIO 11.2 (6.6-38.0); CALCIUM 10.2 MG/DL (8.5-10.1); CHLORIDE 99 MMOL/L (99-107); CREATININE 4.64 MG/DL (0.40-0.90); GLUCOSE 97 MG/DL (70-104); MAGNESIUM 1.8 MG/DL (1.5-2.4); PHOSPHORUS 2.7 MG/DL (2.3-4.5); SODIUM 137 MMOL/L (135-145); TOTAL CARBON DIOXIDE 29.5 MMOL/L (24-32); TOTAL PROTEIN 6.3 G/DL (6.4-8.2); eGFR 10 ML/MIN
[2018-05-11 06:06] LABS: ANISOCYTOSIS 2+; PLATELET ESTIMATE NORMAL
[2018-05-11] MEDS: ipratropium/albuterol 3ml nebule NEB SCH ×4 (07:00→20:18)
[2018-05-11] MEDS: sevelamer carbonate 800mg tablet PO SCH ×3 (07:48→17:22)
[2018-05-11] MEDS: levoTHYROXINE 75mcg tablet PO SCH (07:49)
[2018-05-11] MEDS: lactobacillus rhamnosus 10,000 MMU CELLS/CAPSULE PO SCH ×2 (07:49→19:24)
[2018-05-11] MEDS: citalopram 20mg tablet PO SCH (07:50)
[2018-05-11] MEDS: docusate sod 100mg capsule PO SCH ×2 (07:51→19:28)
[2018-05-11] MEDS: ALPRAZolam 0.5mg tablet PO SCH (07:51)
[2018-05-11] MEDS: aspirin 81mg tablet.DR PO SCH (07:51)
[2018-05-11] MEDS: furosemide 40mg tablet PO SCH (07:52)
[2018-05-11] MEDS: folic acid/vitamin B complex w/vitamin C 0.8mg tablet PO SCH (07:52)
[2018-05-11] MEDS: folic acid 1mg tablet PO SCH (07:53)
[2018-05-11] MEDS: hydrALAZINE 25 MG tablet PO SCH ×2 (07:54→19:24)
[2018-05-11] MEDS ORDERED: LIDOcaine 1% (10mg/ml) 2ml vial SQ ONE (08:00)
[2018-05-11] MEDS ORDERED: heparin 1,000 units/ml 10ml inj IV ONE (08:00)
[2018-05-11] MEDS: diltiazem CD 180mg cap (once-daily) PO SCH (08:00)
[2018-05-11] MEDS ORDERED: normal saline 1000ml 250 ML IV PRN (08:00)
[2018-05-11] MEDS ORDERED: epoetin 20,000 units/ml inj IV ONE (08:00)
[2018-05-11] MEDS: heparin, porcine 5000 units/ml vial SQ SCH ×2 (08:00→19:24)
[2018-05-11] MEDS: labetalol 100mg tablet PO SCH ×3 (08:00→20:14)
[2018-05-11] MEDS: cinacalcet 30mg tablet PO SCH (17:23)
[2018-05-11] MEDS: atorvastatin 20mg tablet PO SCH (20:14)
[2018-05-12 02:00] VITALS: BP 156/61
[2018-05-12] MEDS: vancomycin 125mg/5ml ORAL solution 5ml UD bottle PO SCH ×4 (03:35→19:27)
[2018-05-12] MEDS: HYDROcodone/acetaminophen 5mg/325mg tablet PO PRN ×2 (03:39→13:36)
[2018-05-12 06:00] VITALS: BP 153/61
[2018-05-12 06:06] LABS: BASOPHILS # (AUTO) 0.1 X10'3 (0-0.2); BASOPHILS % (AUTO) 0.7 % (0-1); EOSINOPHILS # (AUTO) 0.5 X10'3 (0-0.9); EOSINOPHILS % (AUTO) 4.7 % (0-6); HEMATOCRIT 25.3 % (35.0-45.0); HEMOGLOBIN 8.2 g/dl (12.0-16.0); LYMPHOCYTES # (AUTO) 1.3 X10'3 (1.1-4.8); LYMPHOCYTES % (AUTO) 11.7 % (21-51); MEAN CORPUSCULAR HEMOGLOBIN 30.4 PG (27.0-31.0); MEAN CORPUSCULAR HGB CONC 32.6 % (33.0-36.5); MEAN CORPUSCULAR VOLUME 93.1 FL (78-98); MEAN PLATELET VOLUME 8.3 FL (7.4-10.4); MONOCYTES # (AUTO) 0.7 X10'3 (0-0.9); MONOCYTES % (AUTO) 6.6 % (2-12); NEUTROPHILS # (AUTO) 8.4 X10'3 (1.8-7.7); NEUTROPHILS % (AUTO) 76.3 % (42-75); PLATELET COUNT 230 X10'3 (140-440); RED BLOOD COUNT 2.71 X10'6 (4.20-5.60); RED CELL DISTRIBUTION WIDTH 17.8 % (11.5-14.5)
[2018-05-12 06:14] LABS: INR 1.1 INR; PARTIAL THROMBOPLASTIN TIME 29 SECONDS (22-32); PROTHROMBIN TIME 10.7 SECONDS (9.0-12.0)
[2018-05-12 06:26] LABS: ALANINE AMINOTRANSFERASE 13 U/L (12-78); ALBUMIN 2.6 G/DL (3.4-5.0); ALBUMIN/GLOBULIN RATIO 0.7 (1.1-1.5); ALKALINE PHOSPHATASE 90 IU/L (46-116); ANION GAP 12 (8-16); ASPARTATE AMINO TRANSFERASE 10 U/L (10-37); BILIRUBIN,TOTAL 0.4 MG/DL (0.1-1.0); BLOOD UREA NITROGEN 77 MG/DL (7-18); BUN/CREATININE RATIO 12.7 (6.6-38.0); CALCIUM 9.9 MG/DL (8.5-10.1); CHLORIDE 95 MMOL/L (99-107); CREATININE 6.08 MG/DL (0.40-0.90); GLUCOSE 90 MG/DL (70-104); MAGNESIUM 1.8 MG/DL (1.5-2.4); PHOSPHORUS 3.3 MG/DL (2.3-4.5); POTASSIUM 4.4 MMOL/L (3.5-5.1); SODIUM 134 MMOL/L (135-145); TOTAL CARBON DIOXIDE 27.4 MMOL/L (24-32); TOTAL PROTEIN 6.2 G/DL (6.4-8.2); eGFR 7 ML/MIN
[2018-05-12] MEDS: sevelamer carbonate 800mg tablet PO SCH ×3 (07:38→17:36)
[2018-05-12] MEDS: aspirin 81mg tablet.DR PO SCH (07:39)
[2018-05-12] MEDS: citalopram 20mg tablet PO SCH (07:39)
[2018-05-12] MEDS: folic acid 1mg tablet PO SCH (07:39)
[2018-05-12] MEDS: lactobacillus rhamnosus 10,000 MMU CELLS/CAPSULE PO SCH ×2 (07:39→19:28)
[2018-05-12] MEDS: levoTHYROXINE 75mcg tablet PO SCH (07:40)
[2018-05-12] MEDS: folic acid/vitamin B complex w/vitamin C 0.8mg tablet PO SCH (07:40)
[2018-05-12] MEDS: ALPRAZolam 0.5mg tablet PO SCH (07:41)
[2018-05-12] MEDS: heparin, porcine 5000 units/ml vial SQ SCH ×2 (07:41→19:28)
[2018-05-12] MEDS: docusate sod 100mg capsule PO SCH ×2 (07:46→19:28)
[2018-05-12] MEDS: ipratropium/albuterol 3ml nebule NEB SCH ×4 (07:58→20:45)
[2018-05-12] MEDS: labetalol 100mg tablet PO SCH ×3 (08:00→21:00)
[2018-05-12] MEDS: hydrALAZINE 25 MG tablet PO SCH ×2 (08:00→19:28)
[2018-05-12] MEDS: furosemide 40mg tablet PO SCH (08:00)
[2018-05-12] MEDS: diltiazem CD 180mg cap (once-daily) PO SCH (08:00)
[2018-05-12 11:00] VITALS: BP 174/62
[2018-05-12 15:00] VITALS: BP 126/57
[2018-05-12] MEDS: cinacalcet 30mg tablet PO SCH (17:41)
[2018-05-12 19:00] VITALS: BP 167/64
[2018-05-12] MEDS: atorvastatin 20mg tablet PO SCH (21:00)
[2018-05-12 23:00] VITALS: BP 158/63
[2018-05-13] MEDS: vancomycin 125mg/5ml ORAL solution 5ml UD bottle PO SCH ×3 (01:13→14:00)
[2018-05-13] MEDS: HYDROcodone/acetaminophen 5mg/325mg tablet PO PRN ×2 (01:20→11:36)
[2018-05-13 03:00] VITALS: BP 166/66
[2018-05-13 06:37] LABS: BASOPHILS # (AUTO) 0.1 X10'3 (0-0.2); BASOPHILS % (AUTO) 0.9 % (0-1); EOSINOPHILS # (AUTO) 0.5 X10'3 (0-0.9); HEMATOCRIT 29.3 % (35.0-45.0); HEMOGLOBIN 9.5 g/dl (12.0-16.0); LYMPHOCYTES # (AUTO) 1.2 X10'3 (1.1-4.8); LYMPHOCYTES % (AUTO) 14.1 % (21-51); MEAN CORPUSCULAR HEMOGLOBIN 30.5 PG (27.0-31.0); MEAN CORPUSCULAR HGB CONC 32.5 % (33.0-36.5); MEAN CORPUSCULAR VOLUME 93.8 FL (78-98); MEAN PLATELET VOLUME 8.1 FL (7.4-10.4); MONOCYTES # (AUTO) 0.7 X10'3 (0-0.9); MONOCYTES % (AUTO) 8.7 % (2-12); NEUTROPHILS # (AUTO) 5.8 X10'3 (1.8-7.7); NEUTROPHILS % (AUTO) 70.3 % (42-75); PLATELET COUNT 269 X10'3 (140-440); RED BLOOD COUNT 3.13 X10'6 (4.20-5.60); RED CELL DISTRIBUTION WIDTH 17.9 % (11.5-14.5); WHITE BLOOD COUNT 8.3 X10'3 (4.5-11.0)
[2018-05-13 06:56] LABS: ALANINE AMINOTRANSFERASE 12 U/L (12-78); ALBUMIN 2.7 G/DL (3.4-5.0); ALBUMIN/GLOBULIN RATIO 0.6 (1.1-1.5); ALKALINE PHOSPHATASE 71 IU/L (46-116); ANION GAP 8 (8-16); ASPARTATE AMINO TRANSFERASE 10 U/L (10-37); BILIRUBIN,TOTAL 0.5 MG/DL (0.1-1.0); BLOOD UREA NITROGEN 34 MG/DL (7-18); BUN/CREATININE RATIO 9.6 (6.6-38.0); CALCIUM 9.7 MG/DL (8.5-10.1); CHLORIDE 99 MMOL/L (99-107); CREATININE 3.53 MG/DL (0.40-0.90); GLUCOSE 81 MG/DL (70-104); MAGNESIUM 1.9 MG/DL (1.5-2.4); PHOSPHORUS 3.3 MG/DL (2.3-4.5); POTASSIUM 4.7 MMOL/L (3.5-5.1); SODIUM 138 MMOL/L (135-145); TOTAL CARBON DIOXIDE 30.9 MMOL/L (24-32); TOTAL PROTEIN 6.9 G/DL (6.4-8.2); eGFR 13 ML/MIN
[2018-05-13 06:59] LABS: INR 1.1 INR; PROTHROMBIN TIME 10.9 SECONDS (9.0-12.0)
[2018-05-13 07:00] VITALS: BP 166/62
[2018-05-13 07:09] VITALS: BP 166/62
[2018-05-13] MEDS: sevelamer carbonate 800mg tablet PO SCH ×2 (07:30→12:40)
[2018-05-13] MEDS: ipratropium/albuterol 3ml nebule NEB SCH ×3 (07:43→15:30)
[2018-05-13] MEDS: furosemide 40mg tablet PO SCH (08:00)
[2018-05-13] MEDS: heparin, porcine 5000 units/ml vial SQ SCH (08:59)
[2018-05-13] MEDS: diltiazem CD 180mg cap (once-daily) PO SCH (09:00)
[2018-05-13] MEDS: folic acid 1mg tablet PO SCH (09:00)
[2018-05-13] MEDS: ALPRAZolam 0.5mg tablet PO SCH (09:00)
[2018-05-13] MEDS: citalopram 20mg tablet PO SCH (09:00)
[2018-05-13] MEDS: labetalol 100mg tablet PO SCH ×2 (09:00→12:40)
[2018-05-13] MEDS: levoTHYROXINE 75mcg tablet PO SCH (09:01)
[2018-05-13] MEDS: hydrALAZINE 25 MG tablet PO SCH (09:01)
[2018-05-13] MEDS: folic acid/vitamin B complex w/vitamin C 0.8mg tablet PO SCH (09:01)
[2018-05-13] MEDS: aspirin 81mg tablet.DR PO SCH (09:01)
[2018-05-13] MEDS: lactobacillus rhamnosus 10,000 MMU CELLS/CAPSULE PO SCH (09:01)
[2018-05-13] MEDS: docusate sod 100mg capsule PO SCH (09:01)
[2018-05-13 11:00] VITALS: BP 162/64
[2018-05-13] MEDS ORDERED: ALPR1TAB7 PO (12:32)
[2018-05-13] MEDS ORDERED: IPRA3AMP9 IH (12:32)
[2018-05-13 15:00] VITALS: BP 156/64
== END 2018-05-13 17:40 | disposition home or self-care (01) | DRG 189 ==
LOC: ER 03:00 → ED HOLD 05:13 → PCU 3S 07:10
PROVIDERS: ATTEND Internal Medicine Critical Care Medicine
PROC: 5A09357 Assistance with Respiratory Ventilation, Less than 24 Consecutive Hours, Continuous Positive Airway Pressure (ICD-10-PCS; principal; 2018-05-09)
PROC: 30233N1 Transfusion of Nonautologous Red Blood Cells into Peripheral Vein, Percutaneous Approach (ICD-10-PCS; 2018-05-09)
PROC: 5A1D70Z Performance of Urinary Filtration, Intermittent, Less than 6 Hours Per Day (ICD-10-PCS; 2018-05-09)
PROC: 5A09357 Assistance with Respiratory Ventilation, Less than 24 Consecutive Hours, Continuous Positive Airway Pressure (ICD-10-PCS; 2018-05-10)
PROC: 5A09357 Assistance with Respiratory Ventilation, Less than 24 Consecutive Hours, Continuous Positive Airway Pressure (ICD-10-PCS; 2018-05-11)
PROC: 5A1D70Z Performance of Urinary Filtration, Intermittent, Less than 6 Hours Per Day (ICD-10-PCS; 2018-05-12)
PROC: 5A09357 Assistance with Respiratory Ventilation, Less than 24 Consecutive Hours, Continuous Positive Airway Pressure (ICD-10-PCS; 2018-05-12)
PROC: 5A09357 Assistance with Respiratory Ventilation, Less than 24 Consecutive Hours, Continuous Positive Airway Pressure (ICD-10-PCS; 2018-05-13)
DX: J96.21 Acute and chronic respiratory failure with hypoxia (principal); N18.6 End stage renal disease; I50.33 Acute on chronic diastolic (congestive) heart failure; I13.2 Hypertensive heart and chronic kidney disease with heart failure and with stage 5 chronic kidney disease, or end stage renal disease; A04.72 Enterocolitis due to Clostridium difficile, not specified as recurrent; J44.9 Chronic obstructive pulmonary disease, unspecified; D64.9 Anemia, unspecified; R34 Anuria and oliguria; E78.00 Pure hypercholesterolemia, unspecified; E78.5 Hyperlipidemia, unspecified; R74.8 Abnormal levels of other serum enzymes; Z99.2 Dependence on renal dialysis; Z79.899 Other long term (current) drug therapy; Z87.891 Personal history of nicotine dependence; Z87.01 Personal history of pneumonia (recurrent); Z82.3 Family history of stroke; Z82.41 Family history of sudden cardiac death; Z82.49 Family history of ischemic heart disease and other diseases of the circulatory system; Z82.5 Family history of asthma and other chronic lower respiratory diseases; Z83.3 Family history of diabetes mellitus; Z80.9 Family history of malignant neoplasm, unspecified; Z84.89 Family history of other specified conditions
CPT/HCPCS: 36415; 36600; 71045; 80053; 82803; 83735; 83880; 84100; 84484; 85018; 85025; 85610; 85730; 86885; 86900; 86901; 86902; 86922; 93005; 94640; 94644; 94660; 94760; 96374; 96375; 97110; 97116; 97162; 99291; G0257; G0378; J0885; J1644; J2060; J2930; J3490; P9016; P9047

== ENCOUNTER 2018-06-08 13:54 | Emergency (ER) | payer MEDICARE, MEDICAID ==
[~2018-06-08] VITALS: Ht 170.2 cm; Wt 70.0 kg
[~2018-06-08 13:54] MED LIST changes: -HEPA1DIS10 SQ; -POTA10TA19 PO
[2018-06-08 14:31] LABS: BASOPHILS % (AUTO) 0.3 % (0-1); EOSINOPHILS # (AUTO) 0.2 X10'3 (0-0.9); EOSINOPHILS % (AUTO) 2.5 % (0-6); HEMATOCRIT 29.2 % (35.0-45.0); HEMOGLOBIN 9.4 g/dl (12.0-16.0); LYMPHOCYTES # (AUTO) 0.7 X10'3 (1.1-4.8); LYMPHOCYTES % (AUTO) 11.3 % (21-51); MEAN CORPUSCULAR HGB CONC 32.2 % (33.0-36.5); MEAN CORPUSCULAR VOLUME 93.2 FL (78-98); MEAN PLATELET VOLUME 8.8 FL (7.4-10.4); MONOCYTES # (AUTO) 0.5 X10'3 (0-0.9); MONOCYTES % (AUTO) 7.2 % (2-12); NEUTROPHILS % (AUTO) 78.7 % (42-75); PLATELET COUNT 202 X10'3 (140-440); RED BLOOD COUNT 3.13 X10'6 (4.20-5.60); WHITE BLOOD COUNT 6.3 X10'3 (4.5-11.0)
[2018-06-08 14:44] LABS: ANISOCYTOSIS 2+; LARGE PLATELETS FEW; PLATELET ESTIMATE NORMAL
[2018-06-08 14:45] LABS: SCHISTOCYTES FEW
[2018-06-08 14:46] LABS: ALANINE AMINOTRANSFERASE 13 U/L (12-78); ALBUMIN 3.3 G/DL (3.4-5.0); ALBUMIN/GLOBULIN RATIO 0.8 (1.1-1.5); ALKALINE PHOSPHATASE 70 IU/L (46-116); ANION GAP 16 (8-16); ASPARTATE AMINO TRANSFERASE 10 U/L (10-37); BILIRUBIN,TOTAL 0.5 MG/DL (0.1-1.0); BLOOD UREA NITROGEN 57 MG/DL (7-18); BUN/CREATININE RATIO 5.8 (6.6-38.0); CALCIUM 9.9 MG/DL (8.5-10.1); CHLORIDE 94 MMOL/L (99-107); CREATININE 9.79 MG/DL (0.40-0.90); GLUCOSE 77 MG/DL (70-104); LIPASE 193 U/L (73-393); MICROCYTOSIS 1+; POTASSIUM 4.7 MMOL/L (3.5-5.1); SODIUM 134 MMOL/L (135-145); TOTAL CARBON DIOXIDE 24.4 MMOL/L (24-32); TOTAL PROTEIN 7.4 G/DL (6.4-8.2); eGFR 4 ML/MIN
[2018-06-08 14:58] LABS: UA COLLECTION TYPE STRAIGHT CATH
[2018-06-08 14:59] LABS: CLARITY,URINE SLIGHTLY CLOUDY (Clear); COLOR,URINE YELLOW (Yellow); GLUCOSE, URINE 250 mg/dl (Neg); KETONES,URINE TRACE mg/dl (Neg); LEUKOCYTE ESTERASE ,URINE TRACE (Neg); NITRITES, URINE NEGATIVE (Neg); OCCULT BLOOD,URINE NEGATIVE (Neg); PH,URINE 7.5 (4.8-8.0); PROTEIN,URINE 100 mg/dl (Neg); UROBILINOGEN,URINE 0.2 E.U/dL (0.2-1.0)
[2018-06-08 15:10] LABS: MUCUS STRANDS MANY /LPF (Neg); SQUAMOUS EPITHELIAL CELL,UR MANY /LPF (FEW)
[2018-06-08 15:12] LABS: BACTERIA,URINE NONE SEEN /HPF (Neg); RBC,URINE NONE SEEN /HPF (0-2)
[2018-06-08] MEDS ORDERED: metroNIDAZOLE 500mg tablet PO ONE (16:05)
[2018-06-08] MEDS ORDERED: METR500T4 PO (16:19)
[2018-06-08] MEDS ORDERED: VANC250C12 PO (16:19)
[2018-06-08 16:52] VITALS: BP 169/75
== END 2018-06-08 17:38 | disposition home or self-care (01) ==
LOC: ER 13:54
DX: R19.7 Diarrhea, unspecified (principal); J44.9 Chronic obstructive pulmonary disease, unspecified; I13.0 Hypertensive heart and chronic kidney disease with heart failure and stage 1 through stage 4 chronic kidney disease, or unspecified chronic kidney disease; N18.9 Chronic kidney disease, unspecified; I50.9 Heart failure, unspecified; Z99.2 Dependence on renal dialysis; Z98.890 Other specified postprocedural states; Z56.0 Unemployment, unspecified; Z79.899 Other long term (current) drug therapy; Z79.82 Long term (current) use of aspirin; Z86.19 Personal history of other infectious and parasitic diseases
CPT/HCPCS: 36415; 71045; 80053; 81001; 83690; 85025; 87088; 99284; P9612; J3490

== ENCOUNTER 2018-06-14 08:48 | Emergency (ER) | payer MEDICARE, MEDICAID ==
[~2018-06-14] VITALS: Ht 170.2 cm; Wt 63.0 kg
[~2018-06-14 08:48] MED LIST changes: +METR500T4 PO; +VANC250C12 PO
[2018-06-14] MEDS ORDERED: heparin 10,000 units/1 ML INJ ONE (09:00)
[2018-06-14] MEDS ORDERED: aspirin 81mg tab.chew PO ONE (09:05)
[2018-06-14] MEDS ORDERED: diltiazem 5mg/ml 5ml inj. IV ONE (09:20)
[2018-06-14] MEDS ORDERED: azithromycin/NS 500mg/250ml 250 ML IV ONE (09:35)
[2018-06-14] MEDS ORDERED: CefTRIAXone/D5W-Rocephin 1gm 50 ML IV ONE (09:35)
[2018-06-14 10:08] LABS: BASOPHILS % (AUTO) 0.5 % (0-1); EOSINOPHILS # (AUTO) 0.2 X10'3 (0-0.9); EOSINOPHILS % (AUTO) 3.8 % (0-6); HEMATOCRIT 27.6 % (35.0-45.0); HEMOGLOBIN 8.9 g/dl (12.0-16.0); LYMPHOCYTES # (AUTO) 0.8 X10'3 (1.1-4.8); LYMPHOCYTES % (AUTO) 15.7 % (21-51); MEAN CORPUSCULAR HEMOGLOBIN 29.8 PG (27.0-31.0); MEAN CORPUSCULAR HGB CONC 32.1 % (33.0-36.5); MEAN CORPUSCULAR VOLUME 92.9 FL (78-98); MEAN PLATELET VOLUME 8.8 FL (7.4-10.4); MONOCYTES # (AUTO) 0.6 X10'3 (0-0.9); MONOCYTES % (AUTO) 10.4 % (2-12); NEUTROPHILS # (AUTO) 3.7 X10'3 (1.8-7.7); NEUTROPHILS % (AUTO) 69.6 % (42-75); PLATELET COUNT 204 X10'3 (140-440); RED BLOOD COUNT 2.97 X10'6 (4.20-5.60); RED CELL DISTRIBUTION WIDTH 19.9 % (11.5-14.5); WHITE BLOOD COUNT 5.3 X10'3 (4.5-11.0)
[2018-06-14 10:35] LABS: ALANINE AMINOTRANSFERASE 11 U/L (12-78); ALBUMIN 3.2 G/DL (3.4-5.0); ALBUMIN/GLOBULIN RATIO 0.8 (1.1-1.5); ALKALINE PHOSPHATASE 62 IU/L (46-116); ANION GAP 7 (8-16); ASPARTATE AMINO TRANSFERASE 12 U/L (10-37); BILIRUBIN,TOTAL 0.6 MG/DL (0.1-1.0); BLOOD UREA NITROGEN 11 MG/DL (7-18); BUN/CREATININE RATIO 3.1 (6.6-38.0); CALCIUM 9.6 MG/DL (8.5-10.1); CHLORIDE 96 MMOL/L (99-107); CREATININE 3.56 MG/DL (0.40-0.90); GLUCOSE 108 MG/DL (70-104); MAGNESIUM 1.9 MG/DL (1.5-2.4); SODIUM 137 MMOL/L (135-145); TOTAL CARBON DIOXIDE 34.2 MMOL/L (24-32); TOTAL PROTEIN 7.3 G/DL (6.4-8.2); eGFR 13 ML/MIN
[2018-06-14 10:40] LABS: POTASSIUM 2.9 MMOL/L (3.5-5.1)
[2018-06-14] MEDS ORDERED: potassium Cl 20 mEq SR tablet PO STA (11:24)
[2018-06-14] MEDS ORDERED: DILT180T11 PO (11:51)
[2018-06-14 12:04] VITALS: BP 165/74
== END 2018-06-14 15:23 | disposition home or self-care (01) ==
LOC: ER 08:48
DX: I48.91 Unspecified atrial fibrillation (principal); I13.0 Hypertensive heart and chronic kidney disease with heart failure and stage 1 through stage 4 chronic kidney disease, or unspecified chronic kidney disease; N18.9 Chronic kidney disease, unspecified; I50.9 Heart failure, unspecified; E78.00 Pure hypercholesterolemia, unspecified; J44.9 Chronic obstructive pulmonary disease, unspecified; Z56.0 Unemployment, unspecified; Z79.82 Long term (current) use of aspirin; Z79.899 Other long term (current) drug therapy
CPT/HCPCS: 36415; 71045; 80053; 83605; 83735; 83880; 84484; 85025; 87040; 93005; 96365; 96368; 99284; J0456; J0696; J1644; J3490

== ENCOUNTER 2018-07-24 06:03 | Inpatient (IN) | payer MEDICARE, MEDICAID | END 2018-08-02 17:40 | disposition home or self-care (01) | LOC: ER 06:03 → ED HOLD 08:15 → PCU 3S 09:20 | PROC: 5A1D70Z Performance of Urinary Filtration, Intermittent, Less than 6 Hours Per Day (ICD-10-PCS; principal; ~2018-07-24) | DX: J18.9 Pneumonia, unspecified organism (principal); J96.21 Acute and chronic respiratory failure with hypoxia; N18.6 End stage renal disease; E87.1 Hypo-osmolality and hyponatremia; J44.1 Chronic obstructive pulmonary disease with (acute) exacerbation; E87.5 Hyperkalemia; Z99.2 Dependence on renal dialysis ==

== ENCOUNTER 2018-08-06 13:56 | Inpatient (IN) | payer MEDICARE, MEDICAID | END 2018-08-12 14:58 | disposition E | LOC: ER 13:56 → ICU 2S 08-07 17:03 → ED HOLD 15:51 → PCU 3S 18:46 | PROC: 5A1D70Z Performance of Urinary Filtration, Intermittent, Less than 6 Hours Per Day (ICD-10-PCS; principal; ~2018-08-06) | PROC: 5A1955Z Respiratory Ventilation, Greater than 96 Consecutive Hours (ICD-10-PCS; ~2018-08-06) | DX: J96.01 Acute respiratory failure with hypoxia (principal); J69.0 Pneumonitis due to inhalation of food and vomit; N18.6 End stage renal disease; J44.1 Chronic obstructive pulmonary disease with (acute) exacerbation; R78.81 Bacteremia; E87.5 Hyperkalemia; D69.59 Other secondary thrombocytopenia ==